=== PATIENT | female | born 1955 | race Caucasian/White ===

== ENCOUNTER 2020-01-05 12:40 | Outpatient (CLI) | payer MEDICARE, SELFPAY ==
--- NOTE | ~2020-01-05 | MM_ITS ---
EXAMINATION: MM screening [facility] BI w [facility]en HISTORY: Screening TECHNIQUE: Craniocaudal and mediolateral oblique 3-D tomosynthesis images were obtained and synthetic 2-D images were generated. CAD analysis was submitted and interpreted. COMPARISON: Comparison to multiple prior studies sequentially, with oldest reviewed study dated . BREAST PARENCHYMAL COMPOSITION: There are scattered areas of fibroglandular density. FINDINGS: Stable appearance to benign-appearing right subareolar mass, characterized as a cyst by lenard or ultrasound. There is no evidence of suspicious mass, calcification, or architectural distortion to suggest malignancy in either breast. There has been no suspicious interval change. IMPRESSION: 1. No mammographic evidence of malignancy. 2. Recommend routine screening mammography in one year. BI-RADS Category 2: Benign finding(s). Reviewed, dictated and finalized at location A.
== END 2020-01-05 12:41 | disposition home or self-care (01) ==
LOC: ANHIMG 12:45
PROVIDERS: PCP Family Medicine; Visit Provider Family Medicine
DX: Z12.31 Encounter for screening mammogram for malignant neoplasm of breast (principal)
CPT/HCPCS: 77063; 77067

== ENCOUNTER 2020-12-05 14:00 | Outpatient (CLI) | payer MEDICARE, SELFPAY ==
--- NOTE | ~2020-12-05 | DEXA_ITS ---
Bone Density Report Name: Phylicia Kamara Age: 64 Sex: Female Ethnicity: White Date of : 1955 Indication: postmenopausal; parental hip fracture; hysterectomy; Referring Provider: AMAN DUBOSE Study: Bone densitometry was performed. Exam Date: December 05, 2020 Accession number: [id number] Bone Density: Region BMD T-score Z-score Classification AP Spine (L1, L2) 0.996 0.2 1.9 Normal Femoral Neck (Left) 0.878 0.3 1.8 Normal Total Hip (Left) 1.002 0.5 1.8 Normal Total Hip Bilateral Avg 0.989 0.4 1.7 Normal Femoral Neck (Right) 0.886 0.3 1.9 Normal Total Hip (Right) 0.975 0.3 1.5 Normal World Health Organization criteria for BMD impression classify patients as: Normal (T-score at or above -1.0), Osteopenia (T-score between -1.0 and -2.5), or Osteoporosis (T-score at or below -2.5). 10-year Fracture Risk: FRAX not reported because: All T-scores for Spine Total, Hip Total, Femoral Neck at or above -1.0 Clinical Information Provided by Patient: Parent has had a hip fracture Has used the following medications: Vitamin D, Calcium Has the following medical conditions: Hysterectomy Patient maximum height was 63 Menopause Age: 44 No regular weight bearing exercise Does not regularly consume dairy products Onset of menses at age 13 Number of children 3 Impression: The patient has normal bone mass. The patient has risk factors, including: parental hip fracture. Discussion: BONE DENSITY IS ABOVE THE MINIMUM DESIRABLE LEVEL AT ALL SKELETAL SITES TESTED. This patient?s bone mineral density is above the minimum desirable level (T-score -1.0 or better) at all sites measured. The patient should follow a healthful lifestyle (good nutrition with adequate calcium and vitamin D, and appropriate weight-bearing exercise). Follow-Up: Consider repeating this study in 5 years or sooner if there is some new clinical indication. Reported by: [facility] on 12/05/2020 2:26:00 PM. Reviewed, dictated and finalized at location ARobyn GODOY
== END 2020-12-05 14:01 | disposition home or self-care (01) ==
LOC: ANHIMG 14:04
PROVIDERS: PCP Family Medicine; Visit Provider Family Medicine
DX: Z78.0 Asymptomatic menopausal state (principal)
CPT/HCPCS: 77080

== ENCOUNTER 2021-03-16 13:10 | Emergency (ER) | payer MEDICARE, SELFPAY ==
[2021-03-16] VITALS (34 sets, daily range): BP systolic 110–149; BP diastolic 58–96; PULSE 62–99; RESP 12–20; TEMP 36.4–36.5; O2SAT 90–100
--- NOTE | ~2021-03-16 | CT_ITS ---
EXAMINATION: CTA brain DATE: 03/16/2021 15:22 INDICATION: Vertigo. TECHNIQUE: Computed tomographic angiography (CTA) of the head was performed without and with 100 mL O mnipaque-350 intravenous contrast. Automated exposure control and iterative reconstruction technique were employed. The dose-length product was 1238.06 mGy-cm. Maximum intensity projection 3D reconstru ctions were created. Volume-rendered 3D reconstructions of the intracranial arteries were created by the technologist on a separate workstation. COMPARISON: None. FINDINGS: There is a small old infarct in right cerebellum. There is no intracranial hemorrhage, acut e infarction, or abnormal intracranial mass lesion. The ventricles are normal in size. There are like ly changes of ocular lens replacement surgeries. The paranasal sinuses are clear. The mastoid air hailey ls are normal. Right vertebral artery is dominant. There is no significant stenosis of basilar artery or the posterior cerebral arteries. The posterior communicating arteries are normal. There is no sig nificant stenosis of the intracranial internal carotid arteries or anterior or middle cerebral arteri es. Anterior communicating artery is normal. There is no aneurysm. IMPRESSION: 1. Small old infarct in right cerebellum. 2. No aneurysm or significant intracranial arterial stenosis. Reviewed, dictated and finalized at location A.
--- NOTE | 2021-03-16 13:25 | ECG_ITS ---
Measurements Intervals [place] Rate: 58 P: 4 KS: 184 QRS: -11 QRSD: 110 T: -7 QT: 458 QTc: 454 Interpretive Statements SINUS BRADYCARDIA INTRAVENTRICULAR CONDUCTION DELAY LOW QRS VOLTAGE IN PRECORDIAL LEADS EXTENSIVE ANTERIOR INFARCT, AGE INDETERMINATE BORDERLINE T WAVE ABNORMALITY- INFERIOR LEADS BASELINE ARTIFACT- I, II, AVR ABNORMAL ECG Electronically Signed On 03-16-2021 20:25:18 CDT by Christiano Leyva D.O.
[2021-03-16 13:56] LABS: Basophils Absolute Auto 0.1 K/mm3 (0.0-0.1); Basophils Percent Auto 0.6 % (0.2-1.2); Eosinophils Absolute Auto 0.2 K/mm3 (0-0.3); Eosinophils Percent Auto 1.6 % (0-4.4); Hematocrit 40.7 % (37.0-47.0); Hemoglobin 13.7 g/dL (12.0-15.0); Immature Granulocyte Absolute 0.08 K/mm3 (0.00-0.031); Immature Granulocyte Percent A 0.6 % (0-0.5); Lymphocytes Absolute Auto 2.81 K/mm3 (0.9-3.2); Lymphocytes Percent Auto 19.4 % (18.3-44.2); Mean Corpuscular HGB Conc 33.7 g/dl (32-36); Mean Corpuscular Hemoglobin 29.7 pg (26-34); Mean Corpuscular Volume 88.3 fl (80-100); Mean Platelet Volume 11.2 fl (7.4-10.4); Monocytes Percent Auto 6.6 % (2.6-8.5); Neutrophils Absolute Auto 10.3 K/mm3 (1.3-6.7); Neutrophils Percent Auto 71.2 % (45.5-73.1); Platelet Count Result 252 k/mm3 (150-375); Red Blood Count 4.61 M/mm3 (4.2-5.4); Red Cell Distribution Width 13.2 % (11.5-14.5); White Blood Count 14.5 K/mm3 (4.5-10.0)
[2021-03-16 14:07] LABS: Alanine Aminotransferase 36 U/L (4-35); Albumin Level 4.3 g/dL (3.5-5.1); Alkaline Phosphatase 76 U/L (38-126); Anion Gap 9 mmol/L (8-16); Aspartate Amino Transferase 44 U/L (14-36); Bilirubin,Total 1.4 mg/dL (0.2-1.3); Blood Urea Nitrogen 19 mg/dL (7-17); Carbon Dioxide 27 mmol/L (22-30); Chloride 105 mmol/L (98-107); Estimated CRCL calculation 67 ml/min; Estimated Glomerular Filt Rate > 60; Glucose 173 mg/dL (65-110); Potassium 3.5 mmol/L (3.4-5.0); Sodium 141 mmol/L (137-145)
--- NOTE | 2021-03-16 14:28 | ED.DIZZY ---
HPI - Dizziness General Chief Complaint: Dizziness Stated Complaint: Vomiting, Dizzy Time Seen by Provider: 03/16/21 14:09 Source: patient History of Present Illness HPI Narrative: Patient presents with dizziness and vomiting. Reports symptoms started just prior to arrival. Reports she feels weak all over feels dizzy gets nauseous anytime she moves her body. She reports a history of vertigo but today symptoms are more severe. She denies any focal areas of pain such as chest pain or abdominal pain. She denies any urinary symptoms prior to today she was feeling well she denies any fevers, cough, congestion, chest pain, abdominal pain. Related Data Home Medications Medication Instructions Recorded Confirmed aspirin 81 mg tablet,delayed 81 mg PO DAILY 06/18/19 12/12/19 release cetirizine 10 mg tablet 10 mg PO DAILY 06/18/19 12/12/19 Allergies Allergy/AdvReac Type Severity Reaction Status Date / Time codeine Allergy Severe throat Verified 09/04/20 12:23 tightness acetaminophen Allergy Mild unknown Verified 09/04/20 12:23 [From Lorcet (hydrocodone)] hydrocodone Allergy Mild unknown Verified 09/04/20 12:23 [From Lorcet (hydrocodone)] lisinopril Allergy Mild Unknown Verified 09/04/20 12:23 tramadol Allergy Mild Itching Verified 09/04/20 12:23 sulfamethizole Allergy Unknown Unknown Verified 09/04/20 12:23 sulfamethoxazole Allergy Unknown Unknown Verified 09/04/20 12:23 trimethoprim Allergy Unknown Unknown Verified 09/04/20 12:23 Review of Systems Review of Systems: CONSTITUTIONAL: Denies fever, chills, or sweats. EYES: Denies visual changes, redness, or discharge. ENT: Denies rhinorrhea, congestion, sore throat, or otalgia. CARDIOVASCULAR: Denies chest pain, palpitations, or edema. RESPIRATORY: Denies cough or dyspnea. GASTROINTESTINAL: Denies abdominal pain, nausea, vomiting, or diarrhea. GENITOURINARY: Denies dysuria or hematuria. SKIN: Denies rash or itching. MUSCULOSKELETAL: Denies back pain, joint pain, or myalgia. NEUROLOGIC: Dizziness and diffuse weakness PSYCHIATRIC: Denies anxiety or depression. All systems reviewed & are unremarkable except as noted in HPI and below PMFSH Past Medical History Medical History BMI (body mass index) 20.0-29.9 Essential hypertension Major depressive disorder, single episode, unspecified Mixed hyperlipidemia Osteopenia Family History Family History Other Diabetes mellitus Family history of Alzheimer's disease Family history of arthritis Hypertension Social History Social History Smoking status: Never smoker Second hand tobacco smoke exposure: No Alcohol intake: never Exam Narrative: GENERAL: Well-appearing, well-nourished, and in no acute distress. HEAD: Normocephalic, atraumatic. EYES: PERRLA and EOMI. ENT: Nares clear, no rhinorrhea or epistaxis. Mucous membranes moist. NECK: Supple. No masses. No JVD CHEST: Clear to auscultation. No respiratory distress. No wheezes rales or rhonchi HEART: Regular rate and rhythm. No murmur heard. Normal peripheral pulses. ABDOMEN: Soft, nontender, nondistended, normal active bowel sounds. EXTREMITIES: Normal range of motion. No edema. SKIN: Warm, dry, no rash. NEURO: Cranial nerves II through XII patient has 5 out of 5 strength in all extremities sensation intact to light touch in all extremities finger-nose is intact without dysmetria no dysdiadochokinesia. PSYCH: Normal mood and affect. Course Reevaluation(s) Reevaluation #1: Patient continues to feel unwell. Patient was accepted to [facility] by Dr. Connelly pending bed availability. I also discussed case with Dr. Levi neurology at [facility] who will assist in evaluation of the patient. Initial concern was for peripheral vertigo however patient was not responding to supportive ther
[2021-03-16] MEDS: SODIUM CHLORIDE 0.9% IV 1,000 ML 999 ML IV CONT (14:37)
[2021-03-16] MEDS: MECLIZINE HCL 25 MG TABLET PO (14:37)
[2021-03-16 14:52] LABS: Lactic Acid Reflex 2.5 mmol/L (0.7-2.1)
[2021-03-16 15:08] LABS: Add Urine Microscopic? NO; Appearance Urine Clear (Clear); Bilirubin Urine Negative (Negative); Blood Urine Negative (Negative); Color Urine Straw (Yellow); Glucose Urine UA Negative (Negative); Ketones Urine Negative (Negative); Leukocyte Esterase Ur Negative LEU/UL (Negative); Nitrate Urine Negative (Negative); Protein Urine Negative (Negative); Specific Grav Ur 1.012 (1.001-1.035); Urobilinogen Urine Negative mg/dL (<2.0)
[2021-03-16] MEDS: ONDANSETRON INJ 4 MG/2 ML VIAL IV PUSH (16:14)
[2021-03-16 17:41] LABS: Reflex Lactic Acid Yes or No Add Lactic
[2021-03-16] MEDS: ASPIRIN 81 MG CHEWABLE TABLET 324 MG PO (17:51)
[2021-03-16] MEDS: LORazepam INJ (*CRX) 2 MG/ML VIAL 0.5 MG IV PUSH (21:09)
--- NOTE | 2021-03-16 21:53 | PC.NURSE ---
Called [facility] for transport to [facility]....ETA [id number]
[2021-03-16 22:57] LABS: EDCOVIDSCREEN Negative (Negative)
[2021-03-17 18:52] LABS: SARS-CoV-2 RNA PCR Negative
== END 2021-03-16 22:56 | disposition short-term general hospital (02) ==
PROVIDERS: Emergency Medicine; Emergency Provider Emergency Medicine; PCP Family Medicine
DX: R42 Dizziness and giddiness (principal); R11.2 Nausea with vomiting, unspecified; I10 Essential (primary) hypertension; E78.2 Mixed hyperlipidemia; Z79.82 Long term (current) use of aspirin; Z20.822 Contact with and (suspected) exposure to COVID-19
CPT/HCPCS: 36415; 70496; 80053; 81003; 83605; 85025; 87426; 93005; 96361; 96374; 96375; 99285; A9270; C9803; J2060; J2405; J7030; Q9967; U0003; U0005

== ENCOUNTER → 2021-03-31 12:18 | Outpatient (CLI) | payer MEDICARE, SELFPAY ==
--- NOTE | ~2021-03-31 | XR_ITS ---
EXAMINATION: XR chest 2V DATE: 03/31/2021 12:36 INDICATION: Shortness of breath TECHNIQUE: PA and lateral views of the chest are obtained. COMPARISON: None available FINDINGS: The lungs are free of acute opacities. There is no pleural effusion or pneumothorax. The ca rdiomediastinal silhouette is normal. There is moderate thoracic spondylosis. A cardiac monitoring de vice is present in the midline anterior chest wall. Surgical clips in the right upper quadrant are clive shanks from prior cholecystectomy. IMPRESSION: 1. No acute cardiopulmonary abnormality. Reviewed, dictated and finalized at location B.
== END ==
PROVIDERS: PCP Family Medicine; Visit Provider Family Medicine
DX: R06.00 Dyspnea, unspecified (principal)
CPT/HCPCS: 71046

== ENCOUNTER 2022-02-17 08:45 | Outpatient (CLI) | payer MEDICARE, SELFPAY ==
--- NOTE | ~2022-02-17 | MM_ITS ---
EXAMINATION: MM screening [facility] BI w quinten HISTORY: Screening mammogram TECHNIQUE: Craniocaudal and mediolateral oblique 3-D tomosynthesis images were obtained and synthetic 2-D images were generated. CAD analysis was submitted and interpreted. COMPARISON: 01/05/2020, 11/07/2018, 10/26/2018 BREAST PARENCHYMAL COMPOSITION: There are scattered areas of fibroglandular density. FINDINGS: There is no suspicious mass, calcification, or architectural distortion to suggest malignan cy in either breast. There has been no suspicious interval change. IMPRESSION: 1. No mammographic evidence of malignancy. 2. Recommend routine screening mammography in one year. BI-RADS Category 1: Negative Reviewed, dictated and finalized at location A.
== END 2022-02-17 08:46 | disposition home or self-care (01) ==
PROVIDERS: PCP Family Medicine; Visit Provider Physician Assistant
DX: Z12.31 Encounter for screening mammogram for malignant neoplasm of breast (principal)
CPT/HCPCS: 77063; 77067

== ENCOUNTER 2022-05-07 00:24 | Day surgery (SDC) | payer MEDICARE, SELFPAY ==
[2022-04-28 15:24] VITALS: BMI 30.2
[2022-05-07 07:23] VITALS: BP 126/63; PULSE 113; RESP 18; TEMP 36.6; O2SAT 97
[2022-05-07] MEDS: LACTATED RINGERS 1,000 ML 150 ML IV CONT (07:44)
--- NOTE | 2022-05-07 07:53 | PM.HPGS ---
History of Present Illness History of Present Illness Consent: Risks, benefits, and alternatives have been discussed and questions answered. Patient agrees to proceed with procedure. Chief complaint: neoplasm screening Narrative: Phylicia Kamara is a 66 year old female Presents for screening colonoscopy. Patient reports that her current weight appetite and bowel movements are normal. Patient denies abdominal pain. She has had no bleeding. Family history noncontributory. Patient's last exam 10 years ago was unremarkable. Patient reports in the last several years she has had several small CVAs. Ultimately was found to have a hole in the heart . This was repaired via a heart catheterization. Patient presents today for screening colonoscopy. She reports she only takes aspirin and no longer is on blood thinners. Review of Systems Review of Systems: Review of systems noncontributory. [facility] Past Medical History Medical History (Updated 05/07/22 @ 07:55 by Benny Ortega MD) BMI (body mass index) 20.0-29.9 CVA (cerebral vascular accident) Essential hypertension Major depressive disorder, single episode, unspecified Mixed hyperlipidemia Osteopenia Prediabetes Surgical History Surgical History (Updated 03/16/22 @ 15:05 by Sisi Garcia MD) S/P patent foramen ovale closure Family History Family History Other Diabetes mellitus Family history of Alzheimer's disease Family history of arthritis Hypertension Social History Social History Smoking status: Never smoker Second hand tobacco smoke exposure: No Alcohol intake: never Substance use: never Substance use type: does not use Living arrangements: with family Gender identity (if verbalized by the patient): Female Sexual Orientation (if Verbalized by the Patient): Straight or Heterosexual Spiritual care concerns: No Agree to blood products: Yes Meds Home Medications and Allergies Home Medications Medication Instructions Recorded Confirmed Type calcium carbonate 500 mg calcium 500 mg PO DAILY 03/31/21 04/28/22 History (1,250 mg) tablet calcium polycarbophil 625 mg tablet 1,000 mg PO DAILY 03/31/21 04/28/22 History meclizine 25 mg tablet 25 mg PO TID PRN dizziness #60 tabs 05/29/21 04/28/22 Rx perindopril erbumine 4 mg tablet 4 mg PO DAILY #90 tabs 11/20/21 04/28/22 Rx trazodone 50 mg tablet 50 mg PO QHS PRN sleep #30 tabs 11/28/21 04/28/22 Rx aspirin 325 mg tablet 325 mg PO DAILY #90 tabs 03/16/22 04/28/22 Rx omega 0-lpm-bkt-fish oil 1,000 mg 1 cap PO DAILY 03/16/22 04/28/22 History (120 mg-180 mg) capsule (Fish Oil) potassium chloride 20 mEq 20 meq PO DAILY #90 tabs 03/16/22 04/28/22 Rx tablet,extended release atorvastatin 40 mg tablet (Lipitor) 40 mg PO DAILY #90 tabs 03/20/22 04/28/22 Rx venlafaxine 150 mg 150 mg PO DAILY #90 caps 03/20/22 04/28/22 Rx capsule,extended release 24 hr sodium,potassium,mag sulfates 17.5 See Rx Instructions PO .COMPLEX 04/02/22 Rx gram-3.13 gram-1.6 gram oral soln #354 mL (Suprep Bowel Prep Kit) Lactobacillus 1 cap PO DAILY 04/28/22 04/28/22 History acidophilus-Bifidobac.animalis 2.5 billion cell capsule (Daily Probiotic) polyethylene glycol 3350 17 17 g PO DAILY 04/28/22 04/28/22 History gram/dose oral powder (ClearLax) indapamide 2.5 mg tablet 2.5 mg PO DAILY #90 tabs 05/03/22 Rx Allergies Allergy/AdvReac Type Severity Reaction Status Date / Time codeine Allergy Severe throat Verified 05/07/22 07:23 tightness acetaminophen Allergy Mild unknown Verified 05/07/22 07:23 [From Lorcet (hydrocodone)] hydrocodone Allergy Mild unknown Verified 05/07/22 07:23 [From Lorcet (hydrocodone)] lisinopril Allergy Mild Unknown Verified 05/07/22 07:23 tramadol Allergy Mild Itching Verified 05/07/22 07:23 sulfamethizole Allergy Unknown Unknown
--- NOTE | 2022-05-07 08:43 | WPDANESEPPF ---
Anes - Initial Pre Proc Eval Procedure: Operation Date: 05/07/22 08:45 Proposed Procedures p Screening Colonoscopy - Benny Ortega MD Date/Time: 05/07/22 08:43 Surgeon: Benny Ortega MD Pre Op Diagnosis: neoplasm screening Patient Data Age: 66 Gender: F Height: 1.6 m Weight: 77.5 kg Last Vital Signs Temp 97.8 F 05/07/22 07:23 Pulse 113 H 05/07/22 07:23 Resp 18 05/07/22 07:23 BP 126/63 05/07/22 07:23 Pulse Ox 97 05/07/22 07:23 O2 Del Method Room Air 05/07/22 07:23 Allergies Allergy/AdvReac Type Severity Reaction Status Date / Time codeine Allergy Severe throat Verified 05/07/22 07:23 tightness acetaminophen Allergy Mild unknown Verified 05/07/22 07:23 [From Lorcet (hydrocodone)] hydrocodone Allergy Mild unknown Verified 05/07/22 07:23 [From Lorcet (hydrocodone)] lisinopril Allergy Mild Unknown Verified 05/07/22 07:23 tramadol Allergy Mild Itching Verified 05/07/22 07:23 sulfamethizole Allergy Unknown Unknown Verified 05/07/22 07:23 sulfamethoxazole Allergy Unknown Unknown Verified 05/07/22 07:23 trimethoprim Allergy Unknown Unknown Verified 05/07/22 07:23 Home Medications Medication Instructions Recorded Confirmed Type calcium carbonate 500 mg calcium 500 mg PO DAILY 03/31/21 04/28/22 History (1,250 mg) tablet calcium polycarbophil 625 mg tablet 1,000 mg PO DAILY 03/31/21 04/28/22 History meclizine 25 mg tablet 25 mg PO TID PRN dizziness #60 tabs 05/29/21 04/28/22 Rx perindopril erbumine 4 mg tablet 4 mg PO DAILY #90 tabs 11/20/21 04/28/22 Rx trazodone 50 mg tablet 50 mg PO QHS PRN sleep #30 tabs 11/28/21 04/28/22 Rx aspirin 325 mg tablet 325 mg PO DAILY #90 tabs 03/16/22 04/28/22 Rx omega 1-rei-xqn-fish oil 1,000 mg 1 cap PO DAILY 03/16/22 04/28/22 History (120 mg-180 mg) capsule (Fish Oil) potassium chloride 20 mEq 20 meq PO DAILY #90 tabs 03/16/22 04/28/22 Rx tablet,extended release atorvastatin 40 mg tablet (Lipitor) 40 mg PO DAILY #90 tabs 03/20/22 04/28/22 Rx venlafaxine 150 mg 150 mg PO DAILY #90 caps 03/20/22 04/28/22 Rx capsule,extended release 24 hr sodium,potassium,mag sulfates 17.5 See Rx Instructions PO .COMPLEX 04/02/22 Rx gram-3.13 gram-1.6 gram oral soln #354 mL (Suprep Bowel Prep Kit) Lactobacillus 1 cap PO DAILY 04/28/22 04/28/22 History acidophilus-Bifidobac.animalis 2.5 billion cell capsule (Daily Probiotic) polyethylene glycol 3350 17 17 g PO DAILY 04/28/22 04/28/22 History gram/dose oral powder (ClearLax) indapamide 2.5 mg tablet 2.5 mg PO DAILY #90 tabs 05/03/22 Rx Patient hx anesthesia problems: none Family hx anesthesia problems: none Results Review: All pre-operative results and documents have been reviewed as part of the pre-operative evaluation. [facility] Past Medical History Medical History (Updated 05/07/22 @ 07:55 by Benny Ortega MD) BMI (body mass index) 20.0-29.9 CVA (cerebral vascular accident) Essential hypertension Major depressive disorder, single episode, unspecified Mixed hyperlipidemia Osteopenia Prediabetes Surgical History Surgical History (Updated 03/16/22 @ 15:05 by Sisi Garcia MD) S/P patent foramen ovale closure Family History Family History Other Diabetes mellitus Family history of Alzheimer's disease Family history of arthritis Hypertension Social History Social History Smoking status: Never smoker Second hand tobacco smoke exposure: No Alcohol intake: never Substance use: never Substance use type: does not use Living arrangements: with family Gender identity (if verbalized by the patient): Female Sexual Orientation (if Verbalized by the Patient): Straight or Heterosexual Spiritual care concerns: No Agree to blood products: Yes Anes - Eval Final PreProcedure Day of Procedure 05/07/22 08:43 Patient weight:
[2022-05-07 09:15] VITALS: BP 109/66; PULSE 76; RESP 18; O2SAT 96
[2022-05-07 09:25] VITALS: BP 107/62; PULSE 71; RESP 12; O2SAT 98
[2022-05-07 09:35] VITALS: BP 119/75; PULSE 79; RESP 21; O2SAT 100
== END 2022-05-07 09:41 | disposition home or self-care (01) ==
PROVIDERS: PCP Family Medicine; Visit Provider Internal Medicine Gastroenterology
PROC: 0DJD8ZZ Inspection of Lower Intestinal Tract, Via Natural or Artificial Opening Endoscopic (ICD-10-PCS; CPT 45378; principal; 2022-05-07 08:45)
DX: Z12.11 Encounter for screening for malignant neoplasm of colon (principal); K57.30 Diverticulosis of large intestine without perforation or abscess without bleeding; K64.8 Other hemorrhoids; I10 Essential (primary) hypertension; E78.2 Mixed hyperlipidemia; M85.80 Other specified disorders of bone density and structure, unspecified site; R73.03 Prediabetes; F32.9 Major depressive disorder, single episode, unspecified; Z79.82 Long term (current) use of aspirin; Z86.73 Personal history of transient ischemic attack (TIA), and cerebral infarction without residual deficits
CPT/HCPCS: G0121; J2704; J7120

== ENCOUNTER 2022-05-19 11:04 | Outpatient (CLI) | payer MEDICARE, SELFPAY ==
--- NOTE | 2022-05-19 11:11 | ECG_ITS ---
Measurements Intervals [place] Rate: 75 P: 43 IN: 228 QRS: -29 QRSD: 107 T: 32 QT: 389 QTc: 436 Interpretive Statements SINUS RHYTHM WITH FIRST DEGREE AV BLOCK LOW QRS VOLTAGE IN PRECORDIAL LEADS [QRS DEFLECTION < 1.0 mV IN CHEST LEADS] SEPTAL MYOCARDIAL INFARCTION , PROBABLY OLD [40+ ms Q WAVE IN V1/V2] LEFTWARD AXIS ABNORMAL ECG COMPARED TO ECG 03/16/2021 13:25:12 SINUS RHYTHM NOW PRESENT FIRST DEGREE AV BLOCK NOW PRESENT Electronically Signed On 05-19-2022 15:34:41 [employer] [address] M.D.
== END 2022-05-19 11:05 | disposition home or self-care (01) ==
LOC: ANHCARD 11:07
PROVIDERS: PCP Family Medicine; Visit Provider Family Medicine
DX: I10 Essential (primary) hypertension (principal); I44.0 Atrioventricular block, first degree
CPT/HCPCS: 93005

== ENCOUNTER 2022-09-22 12:41 | Emergency (ER) | payer MEDICARE, SELFPAY ==
[2022-09-22 13:01] VITALS: BP 107/72; PULSE 83; RESP 18; TEMP 37.2; O2SAT 99
--- NOTE | 2022-09-22 13:07 | ED.SKABFB ---
HPI - Skin/Abscess/Foreign Bdy General Chief complaint: Skin/Abscess/Foreign Body Stated complaint: insect bite (lt hand) Time Seen by Provider: 09/22/22 13:07 Source: patient Mode of arrival: ambulatory Limitations: no limitations History of Present Illness HPI narrative: Patient is a 66-year-old female that presents with insect bite/sting to left palm by thumb. Patient states it happened 20 minutes prior to arrival. States the pain was immediate and intense with swelling and redness. Patient did not take anything but came straight here. Reports some tingling to fingers and pain to palm. Denies any change in range of motion of fingers. Denies any shortness of breath, tongue swelling or lip swelling Related Data Home Medications Medication Instructions Recorded Confirmed calcium carbonate 500 mg calcium 500 mg PO DAILY 03/31/21 09/22/22 (1,250 mg) tablet calcium polycarbophil 625 mg tablet 1,000 mg PO DAILY 03/31/21 09/22/22 omega 6-qvp-btf-fish oil 1,000 mg 1 cap PO DAILY 03/16/22 09/22/22 (120 mg-180 mg) capsule (Fish Oil) Lactobacillus 1 cap PO DAILY 04/28/22 09/22/22 acidophilus-Bifidobac.animalis 2.5 billion cell capsule (Daily Probiotic) polyethylene glycol 3350 17 17 g PO DAILY 04/28/22 09/22/22 gram/dose oral powder (ClearLax) Allergies Allergy/AdvReac Type Severity Reaction Status Date / Time codeine Allergy Severe throat Verified 09/22/22 13:03 tightness acetaminophen Allergy Mild unknown Verified 09/22/22 13:03 [From Lorcet (hydrocodone)] hydrocodone Allergy Mild unknown Verified 09/22/22 13:03 [From Lorcet (hydrocodone)] lisinopril Allergy Mild Unknown Verified 09/22/22 13:03 tramadol Allergy Mild Itching Verified 09/22/22 13:03 sulfamethizole Allergy Unknown Unknown Verified 09/22/22 13:03 sulfamethoxazole Allergy Unknown Unknown Verified 09/22/22 13:03 trimethoprim Allergy Unknown Unknown Verified 09/22/22 13:03 Review of Systems Review of Systems: All systems reviewed & are unremarkable except as noted in HPI and below Constitutional: Constitutional: Denies body ache(s), Denies chills, Denies fatigue, Denies fever(s), Denies headache(s), Denies malaise and Denies weakness Eyes: Eyes: Denies blurry vision, Denies irritation and Denies loss of vision ENT: Denies otalgia, Denies headache(s), Denies nasal discharge, Denies sinus pain and Denies sore throat Cardiovascular: Cardiovascular: Denies chest pain, Denies irregular heart rhythm and Denies dyspnea Respiratory: Respiratory: Denies dyspnea Gastrointestinal: Gastrointestinal: Denies abdominal pain, Denies melena, Denies hematochezia, Denies diarrhea, Denies nausea and Denies vomiting Musculoskeletal: Musculoskeletal: Denies back pain, Denies myalgias and Denies arthralgias Integumentary/Breasts: Skin/Breast: Denies pruritus, Denies rash and Reports other (Bug bite) Neurologic: Denies headache(s), Denies loss of vision and Denies weakness Psychiatric: Psychiatric: Reports no additional psychiatric complaints Endocrine: Endocrine: Denies fatigue [facility] Past Medical History Medical History (Updated 09/22/22 @ 13:22 by Elizabeth Hicks APRN) BMI (body mass index) 20.0-29.9 CVA (cerebral vascular accident) Essential hypertension Major depressive disorder, single episode, unspecified Mixed hyperlipidemia Osteopenia Prediabetes Surgical History Surgical History (Updated 03/16/22 @ 15:05 by Sisi Garcia MD) S/P patent foramen ovale closure Family History Family History Other Diabetes mellitus Family history of Alzheimer's disease Family history of arthritis Hypertension Social History Social History (Updated 09/15/22 @ 13:54 by Ethel Spivey [facility]) Smoking status: Never smoker Second hand tobacco smoke exposure: No Alcohol intake: never Substance use: never Substance use type: does not use Lack of Transportation: No Lack
== END 2022-09-22 13:24 | disposition home or self-care (01) ==
PROVIDERS: Emergency Provider Nurse Practitioner Family; PCP Family Medicine
DX: S60.562A Insect bite (nonvenomous) of left hand, initial encounter (principal); W57.XXXA Bitten or stung by nonvenomous insect and other nonvenomous arthropods, initial encounter; I10 Essential (primary) hypertension; E78.2 Mixed hyperlipidemia; M85.80 Other specified disorders of bone density and structure, unspecified site; R73.03 Prediabetes; Z86.73 Personal history of transient ischemic attack (TIA), and cerebral infarction without residual deficits
CPT/HCPCS: 99211; G0463

== ENCOUNTER → 2023-03-31 13:03 | Outpatient (CLI) | payer MEDICARE, SELFPAY ==
--- NOTE | ~2023-03-31 | XR_ITS ---
EXAM: XR foot RT min 3V DATE: 03/31/2023 13:23 HISTORY: M79.671 - Pain in right foot . COMPARISON: 04/15/2011. FINDINGS: Normal mineralization. No fracture or dislocation. Small avulsion fracture anterior to the talus seen in the prior study is not visualized in today's study. Stable sclerotic line in the cuboi d. No lytic or blastic lesion. Prominent os navicularis. Mild degenerative change at the first MTP rajwinder int. No erosion or periosteal change. Soft tissues within normal limits. IMPRESSION: Mild degenerative change at the first MTP joint. Prominent os navicularis, which can be a source of chronic medial ankle pain in some patients. Reviewed, dictated and finalized at location K. IMPRESSION: Mild degenerative change at the first MTP joint. Prominent os navic ularis, which can be a source of chronic medial ankle pain in some patients.
== END ==
PROVIDERS: PCP Family Medicine; Visit Provider Family Medicine
DX: M19.071 Primary osteoarthritis, right ankle and foot (principal)
CPT/HCPCS: 73630

== ENCOUNTER 2023-07-02 09:37 | Outpatient (CLI) | payer MEDICARE, SELFPAY ==
--- NOTE | ~2023-07-02 | MM_ITS ---
EXAMINATION: MM screening [facility] BI w [facility]en HISTORY: Screening TECHNIQUE: Craniocaudal and mediolateral oblique 3-D tomosynthesis images were obtained and synthetic 2-D images were generated. CAD analysis was submitted and interpreted. COMPARISON: Comparison to multiple prior studies sequentially, with oldest reviewed study dated 08/20. BREAST PARENCHYMAL COMPOSITION: Not dense: There are scattered areas of fibroglandular density. FINDINGS: There is no evidence of suspicious mass, calcification, or architectural distortion to sugg est malignancy in either breast. There has been no suspicious interval change. IMPRESSION: 1. No mammographic evidence of malignancy. 2. Recommend routine screening mammography in one year. BI-RADS Category 1: Negative Reviewed, dictated and finalized at location A. CLERK
== END 2023-07-02 09:38 | disposition home or self-care (01) ==
LOC: ANHIMG 09:41
PROVIDERS: PCP Family Medicine; Visit Provider Family Medicine
DX: Z12.31 Encounter for screening mammogram for malignant neoplasm of breast (principal)
CPT/HCPCS: 77063; 77067

== ENCOUNTER 2024-02-03 06:39 | Outpatient (CLI) | payer MEDICARE, SELFPAY ==
--- NOTE | ~2024-02-03 | CT_ITS ---
CT of the Abdomen and Pelvis: Indication: Other specified diseases pancreas Technique: 2.5 mm axial scans were obtained through the abdomen and pelvis prior to and following in travenous administration of 100 cc of Omnipaque 350. Dose reduction technique was used on this scan b y utilizing automated exposure control and iterative reconstruction technique. The dose-length produc t (DLP) was 778.40 mGy-cm. Findings: Scans through the lung bases demonstrate 4 mm right basilar pulmonary nodule (axial image 27).. The liver, spleen, adrenals and kidneys are within normal limits. Cholecystectomy clips are present. There is a 2.8 x 2.1 cm cystic, nonenhancing somewhat lobulated mass the pancreatic head/uncinate pro cess (series 7 image 71 for example). No pancreatic ductal dilatation. Lesions possibly in continuity with the main pancreatic duct. There are atherosclerotic calcifications of the aorta. No lymphadeno stanley. No bowel obstruction or bowel wall thickening. There is no evidence to suggest acute appendicitis. Images through the pelvis were performed. Urinary bladder unremarkable. No pelvic mass seen. No ascit es. Impression: 2.8 x 2.1 cm cystic mass at the pancreatic head/uncinate process. Possible continuity with the main p ancreatic duct, which would be indicative of IPMN. Other considerations could include small serous or possibly mucinous cystadenoma. Consider MR/MRCP to further evaluate for continuity with the main whitfield creatic duct, as indicated. Reviewed, dictated and finalized at [facility]. Impression: 2.8 x 2.1 cm cystic mass at the pancreatic head/uncinate process. Possible cont inuity with the main pancreatic duct, which would be indicative of IPMN. Other considerations could include small serous or possibly mucinous cystadenoma. 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
[2024-02-03 07:05] LABS: Estimated Glomerular Filt Rate > 60
== END 2024-02-03 06:40 | disposition home or self-care (01) ==
LOC: ANHIMG 06:40
PROVIDERS: PCP Family Medicine; Visit Provider Family Medicine
DX: K86.89 Other specified diseases of pancreas (principal)
CPT/HCPCS: 74178; Q9967

== ENCOUNTER 2024-09-13 13:36 | Outpatient (CLI) | payer MEDICARE, SELFPAY ==
--- NOTE | ~2024-09-13 | MM_ITS ---
EXAMINATION: MM screening martha BI w quinten HISTORY: Screening TECHNIQUE: Craniocaudal and mediolateral oblique 3-D tomosynthesis images were obtained and synthetic 2-D images were generated. CAD analysis was submitted and interpreted. COMPARISON: Comparison to multiple prior studies sequentially, with oldest reviewed study dated 07/2017. BREAST PARENCHYMAL COMPOSITION: Not dense: There are scattered areas of fibroglandular density. FINDINGS: There is a mass in the upper outer quadrant of the right breast, middle third. The left baylee ast is stable without evidence for malignancy. IMPRESSION: 1. Right breast mass, upper outer quadrant, middle third. 2. Additional mammographic views and possible breast ultrasound are recommended. BI-RADS Category 0: Incomplete: Needs additional imaging evaluation. Reviewed, dictated and finalized at location B. IMPRESSION: 1. Right breast mass, upper outer quadrant, middle third. 2. Additional mammographic views and possible breast ultrasound are recommended . BI-RADS Category 0: Incomplete: Needs additional imaging evaluation.
--- OUTSIDE RECORDS SUMMARY | 2024-09-13 14:45 | XMS_ITS | Clinical Summary ---
Author Organization [facility] Address [address] [place] [address] Care Team Providers Care Plastics Process Hand Name Role Phone Sisi Garcia MD Primary Care Provider [phone] Deshawn Woodward MD Unavailable [phone] Source Comments [facility],non-owned Affiliates and Associated Physician Practices is amultiple site organization consisting of ambulatory clinics and hospital sitesin [place], [place], [place] and [place]. This disclosure is being madepursuant to the Care Everywhere program and may not contain all information available regarding this patient. Last updated 18.[facility] Allergies Active Allergy Reactions Criticality Noted Date Comments Codeine Anaphylaxis High 04/24/2015 Hydrocodone-Acetaminophen Nausea and/or Vomiting High 04/24/2015 Lisinopril Unknown 12/05/2019 Sulfamethoxazole W-Trimethoprim Unknown 12/05/2019 Tramadol Itching Low 12/05/2019 Medications * Be aware that medications may not be up to date on this document. Alwaysverify current medications with the patient. venlafaxine XR 24hr (EFFEXOR XR) 150 MG capsule Take 150 mg by mouth once daily 0 Active amLODIPine (NORVASC) 5 MG tablet Take 5 mg by mouth once daily Active calcium 600 MG tablet Take 1 tablet by mouth 2 times daily with morning and evening meal Active Calcium Polycarbophil (FIBER-CAPS PO) Take by mouth 3 times daily before meals Active atorvastatin (LIPITOR) 40 MG tablet Take 40 mg by mouth at bedtime Active meclizine (ANTIVERT) 25 MG tablet Take 25 mg by mouth 3 times daily as needed for Dizziness Active calcium carbonate (OS-OCTAVIA 500) 1250 (500 Ca) MG tablet A ctive citalopram (CELEXA) 20 MG tablet Take 20 mg by mouth once daily 9 Active ipratropium (ATROVENT) 0.03 % nasal spray [place] 1 spray into the nose 2 times daily as needed 0 Active potassium chloride ER (MICRO-K) 10 MEQ capsule TAKE 1 CAPSULE BY MOUTH TWICE A WEEK 0 Active ketorolac (ACULAR) 0.5 % ophthalmic solution 1 Active ofloxacin (OCUFLOX) 0.3 % ophthalmic solution 1 Active prednisoLONE acetate (PRED FORTE) 1 % ophthalmic suspension 1 Active meloxicam (MOBIC) 15 MG tablet Take 1 (one) tablet by mouth once daily 30 tablet 5 1 Active apixaban (ELIQUIS) 5 MG tablet Take 5 mg by mouth 2 times daily 1 Active bisoprolol (ZEBETA) 5 MG tablet 2 Active clopidogrel (PLAVIX) 75 MG tablet 2 Active indapamide (LOZOL) 2.5 MG tablet Take 2.5 mg by mouth once daily 1 Active perindopril (ACEON) 4 MG tablet Take 4 mg by mouth once daily 1 Active traZODone (DESYREL) 50 MG tablet 2 Active Active Problems Problem Noted Date Diagnosed Date History of CVA (cerebrovascular accident) 2020 Primary hypertension 03/17/2021 Pes anserinus bursitis of right knee 01/03/2021 Presence of right artificial knee joint 10/30/19 21 It band syndrome, right 10/29/2020 Status post right knee replacement 03/15/2020 BPPV (benign paroxysmal positional vertigo), rig ht 01/17/2020 Transient ischemic attack (TIA) 01/17/2020 Primary osteoarthritis of right knee 12/04/2019 Presence of left artificial knee joint 9 Other fatigue 04/24/2015 Social History Tobacco Use Types Packs/Day Years Used Date Smoking Tobacco: Never Smokeless Tobacco: Never Alcohol Use Standard Drinks/Week Comments No 0 (1 standard drink = 0.6 oz pur e alcohol) Comments Unknown Sex and Gender Information Value Date Recorded Sex Assigned at Not on file Legal Sex Female 6:08 PM [employer] Gender Identity Not on file Sexual Orientation Not on file Last Filed Vital Signs Vital Sign Reading Time Taken Comments Blood Pressure 128/54 02/23/2020 7:54 AM CDT Pulse 60 02/23/2020 7:54 AM CDT Temperature 36.9 C (98.4 F) 02/23/2020 7:54 AM CDT Respiratory Rate 18 02/23/2020 7:54 AM CDT Oxygen Saturation 90% 02/23/2020 7:54 AM CDT Inhaled Oxygen Concentration - - Weight 77.1 kg (170 lb) 02/22/2020 6:18 AM CDT Height 160 cm (5' 3 ) 02/22/2020 6:18 AM CDT Body Mass Index 30.11 02/22/2020 6:18 AM CDT Plan of Treatment Health Maintenance Due Date Last Done Comments BONE DENSITY TESTING 1955 COLOGUARD (AGES 45-75) - COL ON CA SCREENING 1954 COLON MONITORING 1955 COLONOSCOPY - COLON CA SCREENING 1954 CT COLONOGRAPHY - COLON CA SCREENING 1955 Colorectal Cancer Screening 1955 FIT - COLON CA SCREENING 1954 FLEX SIG - COLON CA SCREENING 1955 MAMMOGRAM 1955 MEDICARE AWV 12 MONTHS 1955 HEPATITIS C SCREENING 12/21/1972 DTAP/TDAP/TD VACCINES (1 - Tdap) 1973 PNEUMOCOCCAL VACCINE 50+ (1 of 1 - PCV) 2004 ZOSTER VACCINE (1 of 2) 2004 Respiratory Syncytial Virus (RSV) Vaccine Pt: or over 60 yrs (1 - Risk 60-74 years 1-dose series) 2014 COVID-19 VACCINE (1 - 2023-2 5 season) 2024 DEPRESSION SCREENING 05/31/2024 INFLUENZA VACCINE (Season Ended) 2025 01/13/2017, 04/19/2015 HEPATITIS B VACCINE Aged Out No longe r eligible based on patient's age to complete this topic HIB VACCINE Aged Out No longer eligi ble based on patient's age to complete this topic HPV VACCINE Aged Out No longer eligi ble based on patient's age to complete this topic MENINGOCOCCAL (Group B) VACCINE SHARED DECISION-MAKING Aged Out No longer eligible based on patient's age to complete this topic MENINGOCOCCAL GROUPS A/C/Y/W VACCINE Aged Out No longer eligible b ased on patient's age to complete this topic Medical Devices Implanted Type Area Freight Breaker Device Identifier Shelf Expiration Date Model / Serial / Lot Cmnt Bone Djo Srg Cblt 40gm Hvisc Strl Implanted:Qty: 1 on 02/22/2020 by Deshawn Woodward MD at [facility] Right: Knee [employer] 01/09/2021 [id number] / / [id number] Cmpnt Ptlr 28mm 1 Pg Wire Ascnt Arcm Kn Implanted:Qty: 1 on 02/22/2020 by Deshawn Woodward MD at [facility] Right: Knee [employer] 01/11/2025 [id number] / / [id number] Cmpnt Fem Kn Rt Cr Cmnt Prm Vngrd Intlk Implanted:Qty: 1 on 02/22/2020 by Deshawn Woodward MD at [facility] Right: Knee [employer] 12/01/2029 [id number] / / [id number] Tray Tib 67mm Kn Cocr I Beam Implanted:Qty: 1 on 02/22/2020 by Deshawn Woodward MD at [facility] Right: Knee [employer] 12/11/2029 [id number] / / [id number] Brng [id number] Vngrd Arcm Kn Ant Stab Implanted:Qty: 1 on 02/22/2020 by Deshawn Woodward MD at [facility] Right: Knee [employer] 12/21/2024 [id number] / / [id number] [place] [phone] Advance Directives * Full Code (Latest Code Status on File) Date Activated Date Inactivated Comments 02/22/2020 10:11 AM 02/23/2020 12:36 PM Care Teams Plastics Process Hand Relationship Specialty Start Date End Date Sisi Garcia MD [address] [place] [address] PCP - General 04/24/15 [place] [id number] [address] Surgeon Orthopedic Surgery 12/31/20
--- OUTSIDE RECORDS SUMMARY | 2024-09-13 14:46 | XMS_ITS ---
Author Organization 1 OF Rachel r[facility] Address [address] [facility] [address] [place] [address] Care Team Providers Care Technical Professional Name Role Phone Sisi Garcia M.D. Primary Care Provider UnavailFrances Root Unavailable [phone] Allergies Allergen (clinical drug ingredient) Drug/Non Drug Allergy documented on EMR Reaction Allergy Type Onset Date Status Lisinopril Unknown Drug Allergy Active tramadol traMADol HCl Unknown Drug Allergy Acti ve codeine Codeine Unknown Drug Allergy Active Substance with sulfonamide structure and antibacterial mechanism of action (substance) Sulfa Antibiotics Unknown Drug Allergy Active REASON FOR VISIT RT 2nd toe pain Medications Medication SIG (Take, Route, Fr equency, Duration) Notes Start Date End Date Status Calcium 1200 Active Potassium Active Aspirin Active Meloxicam 7.5 MG 1 tablet Orally once a day for 30 days 04/26/2023 Active Atorvastatin Calcium Active Magnesium Active Indapamide Active Venlafaxine HCl Acti ve Perindopril Erbumine Active traZODone HCl Active Probiotic Active Vital Signs Height 62 in 06/17/2023 Weight 150 lbs 06/17/2023 BMI 27.43 kg/m2 06/17/2023 Encounters Encounter Location Date Provider Diagnosis 1 OF Rachel Garza [facility] [address] [place] [address] 06/17/2023 Frances Corona Capsulitis of toe, right M77.51 and Toe pain, right M79.674 Assessments Encounter Date Diagnosis (ICD Code) Assessment Notes Treatment Notes Treatment Clinical Notes Section Notes 06/17/2023 Capsulitis of toe, right (ICD-10 - M77.51) Evaluation today included a review of medical history, review of systems, discussion of exam findings, and review of diagnoses and treatment options. She was advised to continue to try to rest the foot as much as possible. She can apply ice as needed. She was advised that she can discontinue the meloxicam if it is not helping much. I discussed continued use of a gel metatarsal pad, which she purchased again today. I discussed offloading of the forefoot with prefabricated orthotics with a gel metatarsal pad or with a surgical shoe. She would like to continue with just the pad and will try to wear good supportive sneakers. A toe taping was applied to the right second toe today. She was advised that she can continue to do this if it feels comfortable. I also discussed the potential of getting further imaging of the foot in the future if she continues to have no improvement with her symptoms. 06/17/2023 Toe pain, right (ICD-10 - M79.674) Plan Of Treatment Treatment Notes Assessment Notes Capsulitis of toe, right Evaluation toda y included a review of medical history, review of systems, discussion of exam findings, and review of diagnoses and treatment options. She was advised to continue to try to rest the foot as much as possible. She can apply ice as needed. She was advised that she can discontinue the meloxicam if it is not helping much. I discussed continued use of a gel metatarsal pad, which she purchased again today. I discussed offloading of the forefoot with prefabricated orthotics with a gel metatarsal pad or with a surgical shoe. She would like to continue with just the pad and will try to wear good supportive sneakers. A toe taping was applied to the right second toe today. She was advised that she can continue to do this if it feels comfortable. I also discussed the potential of getting further imaging of the foot in the future if she continues to have no improvement with her symptoms. Next Appt Details Follow Up: 4 Weeks,prn, Reas on: Procedure Notes * Category Sub-Category Detail Notes DME: Retail DME recommended: Ball of foot gel cushion, (patient purchased) [facility]. PROCEDURES: Toe taping / splinting: Toe st rapping performed to the right second toe utilizing elastic steri-strips. Patient advised to remove strapping if any discomfort develops or evidence of skin irrition, redness or increased swelling. Advised bandage will likely become loose if it gets wet. Otherwise may leave on for up to a week as long as it seems to be beneficial. Progress Notes * Phylicia KAMARA ADOB: [birth year] (67 yo F)Acc No.[id number]:06/17/2023 Progress Notes Patient: Phylicia ANGLIN Provider: Gabi Corona DPM :1955 A ge:67 Y S ex:Female Date:06/17/2023 Address:[facility] JOSE MICHAEL, CHRISTIAN Dominguez [id number] Pcp:Sisi Garcia M.D. Subjective: * Chief Complaints: * R T 2nd toe pain * HPI: Jacob Thompson assisting with visit:: HPI/Rooming: Tommy wright. Agustin galloway reason for visit:: Follow-up: [age] y/o female RTO for f/u of Rt toe pain. At last visit, treatment consisted of an Rx for Meloxciam. Pt advised to RICE, use gel metatarsal pad and wear good supportive shoes. Today pt reports she is still having pain in her second toe on the bottom. She feels numbness on the top of the toe. She feels the swelling has gone down also. Pt states her gel metatarsal pad helps a lot. She has been taking the meloxicam but is not sure if it is helping.. * ROS: * MULTI-SYSTEM REVIEW:: Nausea, fever or chillls d enies. A ny change in medications since last visit? d enies. A ny changes in medical history/hospitalizations? d enies. * Medical History: * Surgical History: N o Surgical History documented. * Hospitalization/Major Diagno stic Procedure: N o Hospitalization History. * Medications: T akingProbiotic traZODone HCl Perindopril Erbumine Venlafaxine HCl Indapamide Magnesium Aspirin Potassium Calcium 1200 Atorvastatin Calcium Meloxicam 7.5 MG Tablet 1 tablet Orally once a day Medication List reviewed and reconciled with the patientTaking Probiotic Taking traZODone HCl Taking Perindopril Erbumine Taking Venlafaxine HCl Taking Indapamide Taking Magnesium Taking Aspirin Taking Potassium Taking Calcium 1200 Taking Atorvastatin Calcium Taking Meloxicam 7.5 MG Tablet 1 tablet Orally once a day Medication List reviewed and reconciled with the patient * Allergies: S ulfa AntibioticstraMADol HClLisinoprilCodeineno[Allergies Verified] Objective: * Vitals: W t:150lbs, Wt-k.04 kg, Ht: 62 in, BMI:27.43Index. * Examination: G eneral Examination: Constitutional / Appearance: N o acute distress , Well nourished, Appropriate personal hygiene. Mental status: C ooperative, Oriented to person, place and time, Mood and affect: normal, Judgement and intellect: normal with appropriate response to questions. L ower Extremity VASCULAR: : Pulses: D P and PT pulses, palpable, bilateral. Temperature gradient: w arm from proximal to distal, bilateral. Pedal hair: p resent, bilateral. Capillary refill at distal toes less than 3 seconds, bilateral. L ower Extremity DERM: : Skin: w ell hydrated , no suspicious lesions, without ecchymosis, b ilateral. L ower Extremity MSK: : Gait Gait unremarkable with normal posture, propulsion and balance. Left lower extremity inspection and palpation: N o palpable masses or nodules noted.. Right lower extremity inspection and palpation: N o palpable masses or nodules noted. No significant pain with palpation along the dorsal aspect of the second toe. No pain with palpation along the dorsal aspect of the second metatarsal. No acute pain with palpation along the first and second interspaces. Some discomfort with palpation along the plantar aspect of the second MPJ. Some discomfort with end range dorsiflexion of the toe. Patient states numbness to the dorsal aspect of the second toe.. L ower Extremity NEURO: : General sensation appears intact, bilateral. Muscle tone within normal limits, bilateral. ? Assessment: * Assessment: 1. C apsulitis of toe, right - M77.51 (Primary) 2 . T oe pain, right - M79.674 Plan: * Treatment: * Procedures: D ME:: Retail DME recommended: B all of foot gel cushion, (patient purchased). [facility]. PROCEDURES:: Toe taping / splinting: T oe strapping performed to the right second toe utilizing elastic steri-strips. P atient advised to remove strapping if any discomfort develops or evidence of skin irrition, redness or increased swelling. Advised bandage will likely become loose if it gets wet. Otherwise may leave on for up to a week as long as it seems to be beneficial. . * Procedure Codes: 2 9550 STRAPPING OF TOES, Modifiers: T6 * Preventive Medicine: Counseling: C are goal follow-up plan: Above Normal BMI Follow-up L ifestyle education regarding diet Screenings: F ALL RISK SCREENING Fall Risk Assessment: N o falls in the past year * Follow Up: 4 Weeks,prn * Images: * EURIZER HELPER Sign off status: Completed true * Provider: Gabi Corona DPM Date: 0 06/17/2023 Generated for Loly Alvarez/Russel on: 0 09/13/2024 02:45 PM CDT History and Physical Notes * HPI (History of Present Illness) Category Sub-Category Detail Notes Category Not es Primary reason for visit: Follow-up: 67 y/o female RTO for f/u of Rt toe pain. At last visit, treatment consisted of an Rx for Meloxciam. Pt advised to RICE, use gel metatarsal pad and wear good supportive shoes. Today pt reports she is still having pain in her second toe on the bottom. She feels numbness on the top of the toe. She feels the swelling has gone down also. Pt states her gel metatarsal pad helps a lot. She has been taking the meloxicam but is not sure if it is helping. MA assisting with visit: HPI/Rooming: Andre Examination Category Sub-Category Detail Notes Category Not es General Examination Mental status: Cooperative, Oriented to person, place and time, Mood and affect: normal, Judgement and intellect: normal with appropriate response to questions Constitutional / Appearance: No acute di stress , Well nourished, Appropriate personal hygiene Lower Extremity VASCULAR: Pulses: DP and PT pulse s, palpable, bilateral Temperature gradient: warm from proximal to distal, bilateral Pedal hair: present, bilateral Capillary refill at distal toes less lizabeth n 3 seconds, bilateral Lower Extremity NEURO: General sensation appears intac t, bilateral Muscle tone within normal limits , bilateral Lower Extremity MSK: Left lower extremit y inspection and palpation: No palpable masses or nodules noted. Right lower extremity inspec tion and palpation: No palpable masses or nodules noted. No significant pain with palpation along the dorsal aspect of the second toe. No pain with palpation along the dorsal aspect of the second metatarsal. No acute pain with palpation along the first and second interspaces. Some discomfort with palpation along the plantar aspect of the second MPJ. Some discomfort with end range dorsiflexion of the toe. Patient states numbness to the dorsal aspect of the second toe. Gait Gait unremarkable wi th normal posture, propulsion and balance Lower Extremity DERM: Skin: well hydra patricia , no suspicious lesions, without ecchymosis, bilateral
--- OUTSIDE RECORDS SUMMARY | 2024-09-13 14:46 | XMS_ITS | Clinical Summary ---
Author Organization [facility] Address [address] [place] [id number] Care Team Providers Care Bill Poster Installer Name Role Phone Sisi Garcia MD Primary Care Provider [phone] Todd Angeles MD Unavailable Allergies Active Allergy Reactions Criticality Noted Date Comments Codeine Anaphylaxis High 10/11/2018 Anaphylaxis Codeine Sulfate Unknown 10/05/2018 Hydrocodone Stomach upset Low 10/20/2018 Stomach/GI Upset Hydrocodone-Acetaminoph en Nausea And Vomiting High 04/24/2015 Lisinopril Unknown,Rash Medium 10/20/2018 Rash Sulfamethoxazole-Trimet hoprim Unknown 09/20/2018 Tramadol Itching Low 10/20/2018 Itching Medications venlafaxine XR (EFFEXOR-XR) 150 mg 24 hr capsule Take 1 capsule (150 mg total) by mouth daily 12/22/2019 Active calcium carbonate (OS-OCTAVIA) 1,250 MG (500 mg of elemental calcium) tablet Take 2 tablets (2,500 mg total) by mouth nightly Active perindopril (ACEON) 4 mg tablet Take 0.5 tablets (2 mg total) by mouth daily 03/21/2021 Active atorvastatin (LIPITOR) 40 mg tablet Take 1 tablet (40 mg total) by mouth nightly Active B.ani/L.aci/L.s al/L.plan/L.Nayan (PROBIOTIC FORMULA ORAL) Take 1 capsule by mouth nightly Active traZODone (DESYREL) 50 mg tablet Take 1 tablet (50 mg total) by mouth nightly Active aspirin 81 mg enteric coated tablet Take 1 tablet (81 mg total) by mouth daily 30 tablet 11 05/18/2021 Active trospium (SANCTURA) 20 mg tablet 08/30/2023 Active potassium chloride ER 20 mEq CR tablet 08/03/2023 Activ e venlafaxine XR (EFFEXOR-XR) 75 mg 24 hr capsule 06/07/2023 Active indapamide (LOZOL) 2.5 mg tablet Take 1 tablet (2.5 mg total) by mouth daily 12/03/2023 Active meclizine (ANTIVERT) 25 mg tablet Take 1 tablet (25 mg total) by mouth 3 (three) times a day as needed 01/24/2024 Active Active Problems Problem Noted Date Diagnosed Date Pancreatic mass 02/11/2024 Assessment & Plan (02/11/2024 9:21 AM CDT): Had a CT scan that showed an incidental 2.8 by 2.1 cm cystic mass at the pancreatic head/uncinate process, possible continuity with the main pancreatic duct which would indicate IPMN, other considerations include serous or possibly mucinous cystadenoma. -we will refer for EUS of pancreatic mass, pending results may need referral to surgery Screening for colon cancer 02/11/2024 Assessment & Plan (02/11/2024 9:22 AM CDT): Last colonoscopy several years ago per patient was normal. -will obtain prior colonoscopy records from PCP, repeat colonoscopy pending review of records Interatrial septal aneurysm with PFO 05/16/2021 Acute CVA (cerebrovascular accident) 03/23/2021 PFO (patent foramen ovale) 03/19/2021 Suspected cerebrovascular accident (CVA) 021 Primary hypertension 03/17/2021 Other hyperlipidemia 03/17/2021 History of CVA (cerebrovascular accident) 2020 BPPV (benign paroxysmal positional vertigo), rig ht 01/17/2020 Transient ischemic attack (TIA) 01/17/2020 OA right knee-mild/moderate 02/09/2019 Presence of left artificial knee joint 9 Dyslipidemia Hypokalemia Cerebrovascular accident (CVA) Encounters Date Type Department Care Team Description 09/05/[address] [facility] Cardiology [address] [place] [address] Asif Olmos MD Surgical Clearance from Last 3 Months Immunizations Immunization Administration Dates Next Due Influenza, Trivalent, Preser vative Free, Intramuscular 01/13/2017,01/13/2017,04/19/2015,04/19 ZOSTER Recombinant 12/01/2019, 0,08/07/2019,08/06 Surgical History Surgery Date Site/Laterality Comments OVARIAN CYST REMOVAL 05/31/1971 - 05/30/1972 CARDIAC CATHETERIZATION 05/31/2014 - 05/30/2015 CHOLECYSTECTOMY 05/31/1979 - 05/30/1980 HYSTERECTOMY 05/31/2001 - 05/30/2002 CYST REMOVAL 10/11/2018 vaginal cyst excision JOINT REPLACEMENT 04/30/2017 - 05/30/2017 Left total knee. right tkr 01/2020 COLONOSCOPY UNSURE WHEN Medical History Medical History Date Comments Hypertension Hypercholesteremia Depression Viral myocarditis Ovarian cyst Aortic regurgitation mild Osteoarthritis of right knee PONV (postoperative nausea and vomiting) PFO (patent foramen ovale) Viral carditis 2014 Kidney stone patient not awar e of any kidney stone dx Anxiety Stroke (HCC) 02/2021 no resid ual TIA?CVA NOTED Vertigo Family History Medical History Relation Name Comments Alzheimer's disease Father Hyperlipidemia Other Relation Name Status Comments Father Other Social History Tobacco Use Types Packs/Day Years Used Date Smoking Tobacco: Never Smokeless Tobacco: Never Tobacco Cessation:Counseling Given: Not Answered Alcohol Use Standard Drinks/Week Comments Never 0 (1 standard drink = 0.6 oz pur e alcohol) AUDIT-C Answer Date Recorded Q1: How often do you have a drink containing alc ohol? Never 05/14/2021 Average Number of Drinks Not on file 021 Frequency of Binge Drinking Not on file 04/30 Personal Safety Answer Date Recorded Have you ever been in or are you currently in a harmful physical or emotional relationship or is someone making you feel afraid or unsafe? Denies 02/22/2024 Comments No Sex and Gender Information Value Date Recorded Sex Assigned at Not on file Legal Sex Female 1:09 AM LEGAL COUNSEL Gender Identity Not on file Sexual Orientation Not on file Occupation Industry Job Start Date Job End Date [email or web address] Not on file Not on file Not on file Obstetrics History Last Filed Vital Signs Vital Sign Reading Time Taken Comments Blood Pressure 117/74 02/22/2024 9:55 AM CDT Pulse 71 02/22/2024 9:55 AM CDT Temperature 36.5 C (97.7 F) 02/22/2024 9:35 AM CDT Respiratory Rate 17 02/22/2024 9:55 AM CDT Oxygen Saturation 98% 02/22/2024 9:55 AM CDT Inhaled Oxygen Concentration - - Weight 68 kg (150 lb) 02/22/2024 8:05 AM CDT Height 160 cm (5' 3 ) 02/22/2024 8:05 AM CDT Body Mass Index 26.57 02/22/2024 8:05 AM CDT Plan of Treatment Health Maintenance Due Date Last Done Comments Breast Cancer Screening-Mammogram 1954 Colon Cancer Screening-Colonoscopy 1954 Depression Screening 1954 Osteoporosis Screening-Bone Density Scan 1954 DTaP/Tdap/Td Vaccine (1 - Tdap) 1965 Hepatitis B Screening 1972 Pneumococcal vaccine 65+ (1 of 1 - PCV) 2004 Well Visit 65+ 12/27/2019 Covid-19 Vaccine (3 - 2023-2 5 season) 2024 07/30/2020, 07/06/2020 Influenza Vaccine (Season Ended) 2025 01/13/2017, 01/13/2017, 04/19/2015, Additional history exists Fall Risk Assessment 02/21/2025 02/22/2024 Hepatitis C Screening Completed 04/16/2015 Zoster Vaccine Completed 12/01/2019, 07/2019, 08/07/2019, Additional history exists Medical Devices Implanted Type Area Administrative Nursing Supervisor Device Identifier Shelf Expiration Date Model / Serial / Lot Joint Left: Knee Description:LEFT KNEE REPLAC EMENT Joint Right: Knee Description:RIGHT KNEE REPLA CMENT [employer] [id number] Occluder Talisman Pfo 30mm - [id number] Implanted:Qty: 1 on 05/16/2021 by Todd Angeles MD at [facility] [employer] [id number] / / Procedures Procedure Name Priority Date/Time Associated Diagnosis Comments HEPATITIS PANEL, ACUTE Routine 04/16/2015 6:52 PM LEGAL COUNSEL from Last 3 Months or Most Recently Relevant to Health Maintenance Results * Hepatitis panel, acute (04/16/2015 6:52 PM LEGAL COUNSEL) HepBsAg NONREACT NONREACTIVE Comment: Siemens CentaurXP using KIRILL (chemiluminescent immunoassay) technology. NONREACTIVE: IgM antibodies to Hepatitis B Surface antigen not detected. REACTIVE: IgM antibodies to Hepatitis B Surface antigen detected. Reactive results will be confirmed by neutralization testing. HBsAb (immune status) NONREACT NONREACTIVE 04/16/2015 7:41 PM LEGAL COUNSEL [facility] HISTORICAL RESULTS Comment: Siemens CentaurXP using KIRILL (chemiluminescent immunoassay) technology. NONREACTIVE: IgM antibodies to Hepatitis B Surface antibody not detected. REACTIVE: IgM antibodies to Hepatitis B Surface antibody detected. Hep B core IgM NONREACT NONREACTIVE 5 8:21 PM LEGAL COUNSEL [facility] HISTORICAL RESULTS Comment: Siemens CentaurXP using KIRILL (chemiluminescent immunoassay) technology. NONREACTIVE: IgM antibodies to Hepatitis B Core antigen not detected. EQUIVOCAL: IgM antibodies to Hepatitis B Core antigen may or may not be present. Obtain a new specimen and retest. REACTIVE: IgM antibodies to Hepatitis B Core antigen detected. Hep A IgM NONREACT NONREACTIVE 04/16/2015 8:22 PM LEGAL COUNSEL [facility] [employer] HISTORICAL RESULTS Comment: Siemens CentaurXP using KIRILL (chemiluminescent immunoassay) technology. NONREACTIVE: IgM antibodies to Hepatitis A not detected. This does not exclude possibility of exposure to Hepatitis A or early acute infection. EQUIVOCAL:IgM antibodies to Hepatitis A may or may not be present. Suggest recollection and retest. REACTIVE: Antibodies to Hepatitis A detected. Hep C Ab NONREACT NONREACTIVE 04/16/2015 8:20 PM LEGAL COUNSEL [facility] [employer] HISTORICAL RESULTS Comment: Siemens CentaurXP using KIRILL (chemiluminescent immunoassay) technology. NONREACTIVE: Antibodies to Hepatitis C not detected. This does not exclude early acute Hepatitis C infection, possibility of exposure to Hepatitis C, antibodies below detection limit, or to lack of antibody reactivity to the antigen used in this assay. EQUIVOCAL: Antibodies to Hepatitis C may or may not be present. Sample to be confirmed by real-time PCR method. REACTIVE: Antibodies to Hepatitis C detected. 04/16/2015 6:52 PM LEGAL COUNSEL 04/16/2015 7:03 PM LEGAL COUNSEL [facility] HISTORICAL RESULTS - 04/16/2015 8:20 PM LEGAL COUNSEL [employer] Draw us Jorge Alberto [facility] MICROBIOLOGY - NERAL ORDERABLES Final Result [facility] HISTORICAL RESULTS from Last 3 Months or Most Recently Relevant to Health Maintenance Insurance MEDICARE [employer] SENIOR SUPPLEMENT MEDICARE AET[employer] SENIOR SUPPLEMENT Advance Directives For more information, please contact: [phone] * Full Code (Latest Code Status on File) Date Activated Date Inactivated Comments 02/22/2024 8:07 AM 02/22/2024 3:13 PM * LIMITED - No CPR Date Activated Date Inactivated Comments 03/23/2021 3:20 PM 03/26/2021 3:53 PM Question Answer Comments Provide aggressive medical m anagement before a full cardiopulmonary arrest occurs. Use antibiotics, IV Fluids, and medical treatment unless specifically selected below: No intubation * Full Code Date Activated Date Inactivated Comments 03/23/2021 3:18 PM 03/23/2021 3:20 PM * LIMITED - No CPR Date Activated Date Inactivated Comments 03/17/2021 1:01 AM 03/21/2021 2:24 AM Question Answer Comments Provide aggressive medical m anagement before a full cardiopulmonary arrest occurs. Use antibiotics, IV Fluids, and medical treatment unless specifically selected below: No non-invasive ventilationNo cardioversionNo intubation Care Teams Bill Poster Installer Relationship Specialty Start Date End Date Sisi Garcia MD PCP - General Family Medicine 10/05/18 Todd Angeles MD Consulting Physician Interventional Cardiology 03/26/21
--- OUTSIDE RECORDS SUMMARY | 2024-09-13 14:46 | XMS_ITS | Patient Health Record ---
Author Organization 1 OF [facility] Address [address] [place] [address] Care Team Providers Care Investment Consultant Name Role Phone Sisi Garcia M.D. Primary Care Provider Frances Zayas Unavailable [phone] Allergies Allergen (clinical drug ingredient) Drug/Non Drug Allergy documented on EMR Reaction Allergy Type Onset Date Status Lisinopril Unknown Drug Allergy Active tramadol traMADol HCl Unknown Drug Allergy Acti ve codeine Codeine Unknown Drug Allergy Active Substance with sulfonamide structure and antibacterial mechanism of action (substance) Sulfa Antibiotics Unknown Drug Allergy Active Reason For Referral No Information Medications Medication SIG (Take, Route, Fr equency, Duration) Notes Start Date End Date Status Probiotic Active traZODone HCl Active Perindopril Erbumine Active Venlafaxine HCl Acti ve Indapamide Active Magnesium Active Aspirin Active Potassium Active Calcium 1200 Active Atorvastatin Calcium Active Meloxicam 7.5 MG 1 tablet Orally once a day for 30 days 04/26/2023 Active Social History Tobacco Use: Social History Observation Description Date Details (start date - stop date) Never Smoker NA - NA Tobacco Control (Standard) Question Answer Notes Tobacco use: Nonsmoker Plan Of Treatment No Information Insurance Providers Payer Name Payer Address Payer Phone Subscriber Number Group Number Insured Name Patient Relationship to Insured Coverage Start Date Coverage End Date Medicare [address] [place], [place] [id number] Phylicia Kamara Self - [facility] the [facility] [address] [address] [place] [address] [id number] Phylicia Kamara Self - patient is the insured Medical (General) History Medical History History ICD Code depression, High cholesterol, hypertensi on
--- OUTSIDE RECORDS SUMMARY | 2024-09-13 14:46 | XMS_ITS | Data Portability ---
Author Organization [facility], [facility] Address [address] [place] [address] Assessment No assessment recorded. Plan of Treatment Reminders Order Date Submit Date Provider Last Modified By Organization Details Last Modified Time Details Appointments None record ed. Lab None record ed. Referral None record ed. Procedures None record ed. Surgeries None record ed. Imaging None record ed. Medication Orders None record ed. Patient TargetsNo targets recorded. Patient InstructionsNo instructions recorded. Reason for Referral None Reported. Problems Name Problem SNOMED Code Status Onset Date Resolution Date Notes Provider Name and Address Organization Details Recorded Time Posterior vaginal wall prolapse 174698464 Active 2018 Rectocele; Progress: Stable Added By: Claudia Dewitt Add to Current Problems: YES ProblemSta tus: Current Not Available [facility] 2 11:59:35 Midline cystocele 130214609 Active 2018 Cystocele, midline; Progress: Stable Added By: Rigoberto Armstrong Add to Current Problems: YES ProblemSta tus: Current Not Available [facility] 2 11:59:31 Procedure on genitouri nary system Active 2018 Encounter for surgical aftercare following surgery on the genitourin rene system; Progress: Stable Added By: Shi Rodgers Add to Current Problems: YES ProblemSta tus: Current Not Available [facility] 2 09:58:20 Postopera tive care Active 2018 Encounter for surgical aftercare following surgery on the genitourin rene system; Progress: Stable Added By: Shi Rodgers Add to Current Problems: YES ProblemSta tus: Current Not Available [facility] 2 09:58:20 Problem Notes None recorded. Medical Equipment None Reported. Allergies Allergen ID Allergen Name Allergen Category Reaction Reaction Severity Criticality Documentation Date Start Date Code Code System Note Provider Name and Address Organization Details Recorded Time 248785 lisinopri l medicatio n Not available Not available Not available 03/21/20212018 40537 RxNorm Sever ity: Moder ate; Not Available Not Available Not Available 312147 tramadol Not available Not available Not available Not available 03/21/20212018 51928 RxNorm Sever ity: Moder ate; Not Available Not Available Not Available 040384 codeine sulfate medicatio n Not available Not available Not available 03/21/20212018 25435 RxNorm Sever ity: Moder ate; Not Available Not Available Not Available 778757 Bactrim medicatio n Not available Not available Not available 03/21/20212018 07230 9 RxNorm Sever ity: Moder ate; Not Available Not Available Not Available 432659 acetamino phen / hydrocodo ne medicatio n Not available Not available Not available 03/21/20212018 04819 2 RxNorm Sever ity: Moder ate; Not Available Not Available Not Available Medications Name Sig Start Date Stop Date Status Note LastModified by Organization Details LastModified Time amoxicill in 500 mg capsule 06/26 completed Not Available Not Available Not Available atorvasta tin 40 mg tablet active Not Available Not Available Not Available potassium chloride ER 10 mEq capsule,e xtended release TAKE 1 CAPSULE BY MOUTH ONCE DAILY active Not Available Not Available No t Available trazodone 50 mg tablet TAKE 1 TABLET BY MOUTH EVERY DAY AT BEDTIME NEEDED FOR SLEEP 06/26 completed Not Available Not Available Not Available indapamid e 2.5 mg tablet TAKE 1 TABLET BY MOUTH ONCE DAILY active Not Available Not Available No t Available aspirin 325 mg tablet 2018 active Aspirin (ASA) RxNorm: 3966 Allow Substitu tion: True Refill Denied: No Refill DateOccu rred: 09/21/19 19 Not Available Not Available Not Available bisoprolo l 10 mg-hydroc hlorothia zide 6.25 mg tablet active Not Available Not Available No t Available meloxicam 15 mg tablet active Not Available Not Available Not Available perindopr il erbumine 4 mg tablet TAKE 1 TABLET BY MOUTH ONCE DAILY active Not Available Not Available No t Available venlafaxi ne ER 150 mg capsule,e xtended release 24 hr active Not Available Not Available Not Available clopidogr el 75 mg tablet TAKE 1 TABLET BY MOUTH ONCE DAILY active Not Available Not Available No t Available amlodipin e 5 mg tablet active Not Available Not Available Not Available bisoprolo l fumarate 10 mg tablet TAKE 1 TABLET BY MOUTH ONCE DAILY active Not Available Not Available No t Available bisoprolo l fumarate 5 mg tablet TAKE 1 TABLET BY MOUTH ONCE DAILY active Not Available Not Available No t Available prednisol one acetate 1 % eye drops,[employer] pension 06/26 completed Not Available Not Available Not Available meclizine 25 mg tablet TAKE 1 TABLET BY MOUTH THREE TIMES DAILY NEEDED FOR DIZZINES S active Not Available Not Available No t Available aspirin 81 mg chewable tablet 2018 active Aspirin (ASA) RxNorm: 3966 Allow Substitu tion: True Refill Denied: No Refill DateOccu rred: 09/21/19 19 Not Available Not Available Not Available irbesarta n 300 mg tablet active Not Available Not Available Not Available Avapro 2018 active Avapro RxNorm: 13155 Allow Substitu tion: True Refill Denied: No Refill DateOccu rred: 09/21/19 19 Not Available Not Available Not Available Celexa 2018 active Celexa RxNorm: 595342 Allow Substitu tion: True Refill Denied: No Refill DateOccu rred: 09/21/19 19 Not Available Not Available Not Available bisoprolo l fumarate 2018 active Bisoprol ol Fumarate RxNorm: 910560 Allow Substitu tion: True Refill Denied: No Refill DateOccu rred: 09/21/19 19 Not Available Not Available Not Available Eliquis 5 mg tablet active Not Available Not Available No t Available Vitals Date Recorded Body height Body mass index (BMI) Body weight Systolic blood pressure Diastolic blood pressure Provider Name and Address Organization Details Last Updated DateTime 06/26/2021 162.56 cm 28.5 kg/m2 03880.33 g 112 mm[Hg] 80 mm[Hg] Marilia Cruz [facility] 2 12:55:26 Social History None recorded. Functional Status None recorded. Mental Status None recorded. Family History Nothing Reported. Medical History No medical history recorded. Gynecological HistoryNo gynecological history recorded. Obstetrics History GPAL:G 0 P 0 0 0 0 Past Encounters Encounter ID Performer Location Encounter Start Date Encounter Closed Date Diagnosis/Indication Diagnosis SNOMED-CT Code Diagnosis ICD10 Code Diagnosis Note [id number] Ursula Todd MD [facility] [address] [place] [address] 06/26/2021 12:19:09 06/27/2021 15:10:10 Screening for disorder 231238366 Z13.9 Phylicia is here for concern for a possible vaginal mesh tear or vaginal-re ctal perforatio n after a bowel movement last night. Per chart review, patient had a posterior vaginal cyst which was excised by Dr. Armstrong in 2019. Per review of op report, Dr. Armstrong did not use any mesh during this procedure, just used several layers of suture within the posterior vaginal wall to improve the thickness/ integrity of this area after the cyst was removed. Discussed/ clarified this with patient. Thorough vaginal and rectal exam performed with speculum and then manual exam as well, no abnormalit ies noted, no laceration s, perforatio ns, or defects noted. Reassuranc e provided. Pt to follow up PRN. Health Concerns Section Related Observation LastModified by Organization Detai ls LastModified Time None Recorded Concern Status LastModified by Organization Details LastModified Time None Recorded Advance Directives Directive None Recorded Payers Encounter Date Sequence Insurance Name Policy Number Policy Ybarra Covered Member ID Ybarra Member ID Guarantor Name 06/26/2021 1 [place] Phylicia Thompson Anh [id number] Anh 06/26/2021 2 [employer] (MEDICARE SUPPLEMENT) Phylicia Ariana Kamara [id number] Anh Notes Date Note Type Note Provider Name and Address Organization Details Recorded Time 06/26/2021 text/html Phylicia is here for a same-day add-on visit for concern for a possible vaginal mesh tear. She reports she had a previous surgery with Dr. Armstrong in 2019 with mesh. She states she was having a bowel movement last night and felt a pressure afterwards, felt the area and states she could feel a hole between rectum and vagina, concerned that mesh may have torn. Ursula Todd MD [address] [facility] [place], [address], [facility] IV 07/06/2021 14:14:47 OBGyn Episode No OBEpisode recorded.
--- OUTSIDE RECORDS SUMMARY | 2024-09-13 14:46 | XMS_ITS | Referral Summary ---
Author Organization [facility] at the Medical Office Building Address [address] [place] [address] Care Team Providers Care Yarn Salvager Name Role Phone Sisi Garcia MD Primary Care Provider [phone] Todd Angeles MD Unavailable Encounters Date Type Department Care Team Description 09/05/2024 Telephone [facility] Medical Group Cardiology [address] [facility] [address] [address] Asif Olmos MD Surgical Clearance from Last 3 Months Allergies Active Allergy Reactions Criticality Noted Date [...] joint 9 Dyslipidemia Hypokalemia Cerebrovascular accident (CVA) Immunizations Immunization Administration Dates Next Due Influenza, Trivalent, Preser vative Free, Intramuscular 01/13/2017,01/13/2017,04/19/2015,04/19 ZOSTER Recombinant 12/01/2019, 0,08/07/2019,08/06 Social History Tobacco Use Types Packs/Day Years [...] on file Legal Sex Female 1:09 AM EMS EDUCATOR Gender Identity Not on file Sexual Orientation Not on file 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 [employer] [id number] / / Procedures Procedure Name Priority Date/Time Associated Diagnosis Comments HEPATITIS PANEL, ACUTE Routine 04/16/2015 6:52 PM EMS EDUCATOR from Last 3 Months or Most Recently Relevant to Health Maintenance Results * Hepatitis panel, acute (04/16/2015 6:52 PM EMS EDUCATOR) HepBsAg NONREACT NONREACTIVE Comment: Siemens CentaurXP using KIRILL (chemiluminescent immunoassay) technology. NONREACTIVE: IgM antibodies to Hepatitis B Surface antigen not detected. REACTIVE: IgM antibodies to Hepatitis B Surface antigen detected. Reactive results will be confirmed by neutralization testing. HBsAb (immune status) NONREACT NONREACTIVE 04/16/2015 7:41 PM [facility] Comment: Siemens CentaurXP using KIRILL (chemiluminescent immunoassay) technology. NONREACTIVE: IgM antibodies to Hepatitis B Surface antibody not detected. REACTIVE: IgM antibodies to Hepatitis B Surface antibody detected. Hep B core IgM NONREACT NONREACTIVE 5 8:21 PM EMS EDUC[facility]ULTS Comment: Siemens CentaurXP using KIRILL (chemiluminescent immunoassay) technology. NONREACTIVE: IgM antibodies to Hepatitis B Core antigen not detected. EQUIVOCAL: IgM antibodies to Hepatitis B Core antigen may or may not be present. Obtain a new specimen and retest. REACTIVE: IgM antibodies to Hepatitis B Core antigen detected. Hep A IgM NONREACT NONREACTIVE 04/16/2015 8:22 PM EMS EDUCATOR [facility] Comment: Siemens CentaurXP using KIRILL (chemiluminescent immunoassay) technology. NONREACTIVE: IgM antibodies to Hepatitis A not detected. This does not exclude possibility of exposure to Hepatitis A or early acute infection. EQUIVOCAL:IgM antibodies to Hepatitis A may or may not be present. Suggest recollection and retest. REACTIVE: Antibodies to Hepatitis A detected. Hep C Ab NONREACT NONREACTIVE Comment: Siemens CentaurXP using KIRILL [...] to Hepatitis C detected. 04/16/2015 6:52 PM EMS EDUCATOR 04/16/2015 7:03 PM EMS EDUCATOR Trung [facility] HISTORICAL RESULTS - 04/16/2015 8:20 PM EMS EDUCATOR ALEXSANDER LO Draw Jorge Alberto [facility] Final Result [facility] HISTORICAL RESULTS from Last 3 Months or Most Recently Relevant to Health Maintenance Insurance MEDICARE [employer] SENIOR SUPPLEMENT MEDICARE AET[employer] SENIOR SUPPLEMENT Advance Directives For more information, please contact: [phone] * Full Code (Latest Code Status on [...] No non-invasive ventilationNo cardioversionNo intubation Care Teams Yarn Salvager Relationship Specialty Start Date End Date Sisi Garcia MD PCP - General Family Medicine 10/05/18 Todd Angelse MD Consulting Physician Interventional Cardiology 03/26/21
--- OUTSIDE RECORDS SUMMARY | 2024-09-13 14:47 | XMS_ITS | Encounter Summary ---
Author Organization [facility] Care Team Providers Care Air Conditioning Unit Tester Name Role Phone Sisi Garcia MD Primary Care Provider [phone] Todd Angeles MD Unavailable [phone] Encounter Details Date Type Department Care Team (Latest Contact Info) Description 06/05/2015 Orders Only [facility] CLINCONV ProviderRickie MD [address] [place] [id number] Social History Tobacco Use Types Packs/Day Years Used Date Smoking Tobacco: Never Assessed Comments Unknown Sex and Gender Information Value Date Recorded Sex Assigned at Not on file Legal Sex Female 1:09 AM DEPUTY CORONER Gender Identity Not on file Sexual Orientation Not on file documented as of this encounter Plan of Treatment Not on file documented as of this encounter Procedures Procedure Name Priority Date/Time Associated Diagnosis Comments CARDIOLOGY REPORT 10/01/2015 12: 00 AM CDT documented in this encounter Results * CARDIOLOGY REPORT (10/01/2015 12:00 AM CDT) Anatomical Region Laterality Modality Other Narrative 10/01/2015 12:00 AM CDT Ordered by an unspecified provider. Historical Provider [facility] ANGELES PARKER Final Result documented in this encounter Visit Diagnoses Not on filedocumented in this encounter Care Teams Air Conditioning Unit Tester Relationship Specialty Start Date End Date Sisi Garcia MD PCP - General Family Medicine 10/05/18 Todd Angeles MD Consulting Physician Interventional Cardiology 03/26/21 documented as of this encounter
--- OUTSIDE RECORDS SUMMARY | 2024-09-13 14:47 | XMS_ITS | Encounter Summary ---
Author Organization [facility] Care Team Providers Care Rehabilitation Construction Specialist Name Role Phone Sisi Garcia MD Primary Care Provider [phone] Todd Angeles MD Unavailable [phone] Encounter Details Date Type Department Care Team (Latest Contact Info) Description 12/07/2016 Orders Only [facility] CLINCONV ProviderRickie MD [address] [place] [address] Social History Tobacco Use Types Packs/Day Years Used Date Smoking Tobacco: Never Assessed Comments Unknown Sex and Gender Information Value Date Recorded Sex Assigned at Not on file Legal Sex Female 1:09 AM FLAT BED OPERATOR Gender Identity Not on file Sexual Orientation Not on file documented as of this encounter Plan of Treatment Not on file documented as of this encounter Procedures Procedure Name Priority Date/Time Associated Diagnosis Comments SCAN - LABS 12/07/2016 12:00 AM CDT documented in this encounter Results * SCAN - LABS (12/07/2016 12:00 AM CDT) Narrative 12/07/2016 12:00 AM CDT Ordered by an unspecified provider. Historical Provider Final Res ult documented in this encounter Visit Diagnoses Not on filedocumented in this encounter Care Teams Rehabilitation Construction Specialist Relationship Specialty Start Date End Date Sisi Garcia MD PCP - General Family Medicine 10/05/18 Todd Angeles MD Consulting Physician Interventional Cardiology 03/26/21 documented as of this encounter
--- OUTSIDE RECORDS SUMMARY | 2024-09-13 14:47 | XMS_ITS ---
Author Organization 1 OF [facility] Address [address] [facility] [address] [place] [address] Care Team Providers Care Peg Driver Name Role Phone Sisi Garcia M.D. Primary Care Provider UnavailFrances Root Unavailable [phone] Allergies Allergen (clinical drug ingredient) Drug/Non Drug Allergy documented on EMR Reaction Allergy Type Onset Date Status Lisinopril Unknown Drug Allergy Active tramadol traMADol HCl Unknown Drug Allergy Acti ve codeine Codeine Unknown Drug Allergy Active Substance with sulfonamide structure and antibacterial mechanism of action (substance) Sulfa Antibiotics Unknown Drug Allergy Active REASON FOR VISIT f/u R foot pain Medications Medication SIG (Take, Route, Fr equency, Duration) Notes Start Date End Date Status Aspirin Active Potassium Active Calcium 1200 Active Atorvastatin Calcium Active Meloxicam 7.5 MG 1 tablet Orally once a day for 30 days 04/26/2023 Active traZODone HCl Active Perindopril Erbumine Active Venlafaxine HCl Acti ve Indapamide Active Magnesium Active Probiotic Active Vital Signs Height 63 in 07/29/2023 Weight 150 lbs 07/29/2023 BMI 26.57 kg/m2 07/29/2023 Encounters Encounter Location Date Provider Diagnosis 1 OF Rachel Garza [facility] [address] [place] [address] 07/29/2023 Frances Corona Capsulitis of toe, right M77.51 and Toe pain, right M79.674 Assessments Encounter Date Diagnosis (ICD Code) Assessment Notes Treatment Notes Treatment Clinical Notes Section Notes 07/29/2023 Capsulitis of toe, right (ICD-10 - M77.51) Evaluation today included a review of medical history, review of systems, discussion of exam findings, and review of diagnoses and treatment options. Her symptoms appear to be improved. She now only has pain the first few steps after standing. She was advised that she does not need to tape the toe, if it is not helping. She can continue wearing good supportive shoes with a gel metatarsal pad. I discussed again the potential that some of her pain could be nerve related, potentially from her lower back or hips. She may need to see her primary care provider regarding this. She would like to follow-up as needed, if her symptoms change or worsen again. 07/29/2023 Toe pain, right (ICD-10 - M79.674) Plan Of Treatment Treatment Notes Assessment Notes Capsulitis of toe, right Evaluation toda y included a review of medical history, review of systems, discussion of exam findings, and review of diagnoses and treatment options. Her symptoms appear to be improved. She now only has pain the first few steps after standing. She was advised that she does not need to tape the toe, if it is not helping. She can continue wearing good supportive shoes with a gel metatarsal pad. I discussed again the potential that some of her pain could be nerve related, potentially from her lower back or hips. She may need to see her primary care provider regarding this. She would like to follow-up as needed, if her symptoms change or worsen again. Next Appt Details Follow Up: prn, Reason: Progress Notes * Phylicia KAMARA ADOB: [birth year] (67 yo F)Acc No.[id number]:07/29/2023 Progress Notes Patient: Phylicia ANGLIN Provider: Gabi Corona DPM :1955 A ge:67 Y S ex:Female Date:07/29/2023 [address] Pcp:Sisi Garcia M.D. Subjective: * Chief Complaints: * f /u R foot pain * HPI: Jacob Thompson assisting with visit:: HPI/Rooming: Mari galloway reason for visit:: Follow-up: [age] y/o female RTO for f/u of capsulitis of the RT 2nd toe, at the last appt, the pt was advised to continue icing as needed for pain, and to wear the metatarsal gel pad with good supportive shoes. A toe taping was also performed that the pt could repeat if she found it comfortable. T michael the pt reports that she is having pain when she has been sitting for too long and then gets up. Pt reports she can walk good with no pain. Pt reports that the pain goes away after about 8 steps in the morning. Pt reports that the taping did not help, although pt did have tape on the toe today. Pt reports that she does think the pad is helping. . * ROS: * MULTI-SYSTEM REVIEW:: Nausea, fever or chillls d enies. A ny change in medications since last visit? d enies. A ny changes in medical history/hospitalizations? d enies. * Medical History: * Surgical History: N o Surgical History documented. * Hospitalization/Major Diagno stic Procedure: * Medications: T akingProbiotic traZODone HCl Perindopril [...] * Vitals: W t:150lbs, Wt-k.04 kg, Ht: 63 in, BMI:26.57Index. * Examination: G eneral Examination: Constitutional / Appearance: N o acute distress , Well nourished, Appropriate personal hygiene. Mental status: C ooperative, Oriented to person, place and time, Mood and affect: normal, Judgement and intellect: normal with appropriate response to questions. Shoes today: s neakers. L ower Extremity VASCULAR: : Pulses: D P and PT pulses, palpable, bilateral. Temperature gradient: w arm from proximal to distal, bilateral. Pedal hair: p resent, bilateral. Venous insufficiency edema: N o edema noted to the right foot.. Capillary refill at distal toes less than [...] o palpable masses or nodules noted. No acute pain with palpation along the dorsal aspect of the second toe. No pain with palpation along the dorsal aspect of the second metatarsal. No acute pain with palpation along the course of the first and second interspaces. No acute discomfort with palpation along the plantar aspect of the second MPJ. No acute discomfort with end range dorsiflexion of the toe.. L ower Extremity NEURO: : General sensation appears intact, bilateral. Muscle tone within normal limits, bilateral. ? Assessment: * Assessment: 1. C apsulitis of toe, right - M77.51 (Primary) 2 . T oe pain, right - M79.674 Plan: * Treatment: * Procedure Codes: * Follow Up: p rn * Images: * Sign off status: Completed true * Provider: Gabi Corona DPM Date: 0 07/29/2023 Generated for Loly parra/Vicky/Russel on: 0 09/13/2024 02:46 PM CDT History and Physical Notes * HPI (History of Present Illness) Category Sub-Category Detail Notes Category Not es Primary reason for visit: Follow-up: 67 y/o female RTO for f/u of capsulitis of the RT 2nd toe, at the last appt, the pt was advised to continue icing as needed for pain, and to wear the metatarsal gel pad with good supportive shoes. A toe taping was also performed that the pt could repeat if she found it comfortable. Today the pt reports that she is having pain when she has been sitting for too long and then gets up. Pt reports she can walk good with no pain. Pt reports that the pain goes away after about 8 steps in the morning. Pt reports that the taping did not help, although pt did have tape on the toe today. Pt reports that she does think the pad is helping. MA assisting with visit: HPI/Rooming: Laura Examination Category Sub-Category Detail Notes Category Not es General Examination Mental status: Cooperative, Oriented to person, place and time, Mood and affect: normal, Judgement and intellect: normal with appropriate response to questions Shoes today: sneakers Constitutional / Appearance: No acute di stress , Well nourished, Appropriate personal hygiene Lower Extremity VASCULAR: Venous insufficiency e lakeisha: No edema noted to the right foot. Pulses: DP and PT pulses, pa lpable, bilateral Temperature gradient: warm from proximal to [...] No palpable masses or nodules noted. No acute pain with palpation along the dorsal aspect of the second toe. No pain with palpation along the dorsal aspect of the second metatarsal. No acute pain with palpation along the course of the first and second interspaces. No acute discomfort with palpation along the plantar aspect of the second MPJ. No acute discomfort with end range dorsiflexion of the toe. Gait Gait unremarkable wi th normal posture, propulsion and balance Lower Extremity DERM: Skin: well hydra patricia , no suspicious lesions, without ecchymosis, bilateral
--- OUTSIDE RECORDS SUMMARY | 2024-09-13 14:47 | XMS_ITS | Clinical Summary ---
Author Organization [facility] Address [address] [place] [address] Care Team Providers Care Pressing Department Supervisor Name Role Phone Sisi Garcia MD Primary Care Provider [phone] Allergies Active Allergy Reactions Criticality Noted Date Comments Codeine Shortness of Breath High 12/05/2019 Hydrocodone Unknown 12/05/2019 Lisinopril Unknown 12/05/2019 Sulfa Antibiotics Unknown 03/06/2024 Sulfamethoxazole-Trimethoprim Unknown 2019 Tramadol Itching 12/05/2019 Medications citalopram 20 MG tablet Take 1 tablet (20 mg total) by mouth daily. 09/29/19 Active irbesartan 300 MG tablet Take 1 tablet (300 mg total) by mouth daily. 09/12/19 Active bisoprolol-hydroCH LOROthiazide 10-6.25 MG tablet Take 1 tablet by mouth daily. 09/12/19 Active venlafaxine XR 150 MG 24 hr capsule Take 1 capsule (150 mg total) by mouth daily. 11/07/19 Active ipratropium 0.03 % nasal spray 1 spray by Nasal route 2 (two) times daily as needed for Rhinitis. 06/22/19 Active polycarbophil (FIBER) 625 MG tablet Take 1 tablet (625 mg total) by mouth daily. Active calcium carb-cholecalcifer ol 600-400 MG-UNIT Tab tablet Take 2 tablets by mouth daily. Active amLODIPine 5 MG tablet Take 1 tablet (5 mg total) by mouth daily. 30 tablet 12/06/19 Active Additional Information Patient not taking.Reported on 03/29/2024 aspirin 325 MG tablet Take 1 tablet (325 mg total) by mouth daily. Active aspirin 81 MG chewable tablet Chew 1 tablet (81 mg total) by mouth daily. Active ASPIRIN 81 OR Aspirin Active indapamide (LOZOL) 2.5 MG tablet Take 1 tablet (2.5 mg total) by mouth daily. 12/03/19 24 Active Perindopril Erbumine 4 MG Tab Take 1 tablet by mouth daily. Active traZODone (DESYREL) 50 MG tablet Take 1 tablet (50 mg total) by mouth nightly at bedtime. Active atorvastatin (LIPITOR) 40 MG tablet Take 1 tablet (40 mg total) by mouth nightly at bedtime. Active meclizine (ANTIVERT) 25 MG tablet take 1 tablet by mouth three times daily as needed for dizziness 04/13/20 24 Active ondansetron (ZOFRAN-ODT) 4 MG disintegrating tablet 05/05/20 24 Active potassium chloride CR (K-TAB) 20 MEQ tablet 3 (three) times daily. 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 We will get her set up for a Sed rate, C-reactive protein, and a CBC. If those are elevated we may need to consider aspiration of the joints. Will also get a 3 phase bone scan looking for loosening. Will have her get Xr's of both knees for further evaluation. Patient will be seen back after the tests are completed. Dizziness 12/05/2019 Presence of left artificial knee joint 9 Primary osteoarthritis of right knee 02/09/2019 Other fatigue 04/24/2015 Encounters Date Type Department Care Team Description 09/05/2024 Telephone [facility] [place] [address] [id number] Yuli Bellamy, RN Follow Up Call 09/04/2024 Telephone [facility] [place] [address] [id number] Guillermina Gongora, RN Follow Up Call 08/31/2024 10:20 AM CDT - 08/31/2024 10:40 AM CDT Surgery [facility] [place] [address] [id number] Kelle Do MD BLOCK GENICULAR NERVE 08/31/2024 9:42 AM CDT - 08/31/2024 10:43 AM CDT Hospital Encounter [facility] [place] [address] [id number] Kelle Do MD Discharge Disposition: Home or Self Care (Routine Discharge) 08/31/2024 Travel 08/07/2024 Telephone [facility] [place] [address] [id number] Aria Ochoa, RN Follow Up Call 07/03/2024 Telephone [facility] [place] [place] [address] [id number] Aria Ochoa, RN Follow Up Call 07/02/2024 Prep for Procedure [facility] [place] [address] [id number] Salinas Vazquez, CAR PARKER 06/30/2024 Telephone [facility] [place] [address] [id number] Aria Ochoa, RN Follow Up Call from Last 3 Months Family History Medical History Relation Comments Hypertension Mother Relation Status Comments Mother Social History Tobacco Use Types Packs/Day Years Used Date Smoking Tobacco: Never Smokeless Tobacco: Never Tobacco Cessation:Counseling Given: No Comments:na Alcohol Use Standard Drinks/Week Comments Never 0 (1 standard drink = 0.6 oz pur e alcohol) AUDIT-C Answer Date Recorded Frequency of Alcohol Consumption Never 12/05/2019 Average Number of Drinks Not on file 020 Frequency of Binge Drinking Not on file 11/2019 PHQ-2 Answer Date Recorded Patient Health Questionnaire-2 Score 0 09/20/2023 Comments No Sex and Gender Information Value Date Recorded Sex Assigned at Not on file Legal Sex Female 7:12 PM CDT Gender Identity Not on file Sexual Orientation Not on file Last Filed Vital Signs Vital Sign Reading Time Taken Comments Blood Pressure 134/75 08/31/2024 10:41 AM CDT Pulse 84 08/31/2024 10:41 AM CDT Temperature 36.3 C (97.3 F) 08/31/2024 9:52 AM CDT Respiratory Rate 16 08/31/2024 10:41 AM CDT Oxygen Saturation 96% 08/31/2024 10:41 AM CDT Inhaled Oxygen Concentration - - Weight 68 kg (150 lb) 08/31/2024 9:52 AM CDT Height 160 cm (5' 3 ) 08/31/2024 9:52 AM CDT Body Mass Index 26.57 08/31/2024 9:52 AM CDT Plan of Treatment Upcoming Encounters Date Type Department Care Team (Late st Contact Info) Description 10/16/2024 8:40 AM CDT Office Visit [facility] Orthopedic Surgery - [place] [address] [place] [address] [place] [address] [address] [place] [address] Health Maintenance Due Date Last Done Comments Colorectal Cancer Screening Colonoscopy (10 Years) 1955 Hepatitis C 1972 DTaP, Tdap and Td Vaccines ( 1 - Tdap) 1973 Mammogram Screening 1994 Pneumococcal Vaccine: 50+ Years (1 of 1 - PCV) 2004 Annual Medicare Wellness Visit 12/27/2019 Dexa Scan (General) 12/27/2019 COVID-19 Vaccine (3 - 2023-2 5 season) 2024 07/30/2020, 07/06/2020 PHQ-2 (Physician [place]) 05/31/2024 09/20/2023 RSV Immunization or 60+ Years (1 - 1-dose 75+ series) 2029 Zoster Vaccines Completed 12/01/2019, 08/07/2019 Meningococcal B Vaccine Aged Out No l onger eligible based on patient's age to complete this topic Meningococcal Vaccine Aged Out No bassam clifton eligible based on patient's age to complete this topic RSV Immunizations Under 20 Months Aged Out No longer eligible b ased on patient's age to complete this topic Goals Goal Patient Goal Type Associated Problems Recent Progress Patient-Stated? Author Return to independent living Lifestyle No Consuelo Mueller, FLIGHT SIMULATOR TEACHER Procedures Procedure Name Priority Date/Time Associated Diagnosis Comments NJX AA&/STRD GNCLR NRV BRNCH 08/31/2024 10:23 AM CDT Chronic pain of right knee XR PAIN CLINIC C-ARM Today 08/31/2024 9:52 AM CDT from Last 3 Months Results * XR PAIN CLINIC C-ARM (08/31/2024 9:52 AM CDT) Narrative Radiology, Technologist - 08/31/2024 9:52 AM CDT This report does not contain a radiologist's interpretation. Please review associated procedure and/or operative report. Kelle Do MD GENERAL IMAGING Final Result from Last 3 Months Insurance MEDICARE GENERIC - COMMERCIAL MEDICARE GENERIC - COMMERCIAL Advance Directives * Full Code (Latest Code Status on File) Date Activated Date Inactivated Comments 12/05/2019 3:24 PM 12/06/2019 10:13 PM Care Teams Pressing Department Supervisor Relationship Specialty Start Date End Date Sisi Garcia MD PCP - General FAMILY PRACTICE 12/05/19
--- OUTSIDE RECORDS SUMMARY | 2024-09-13 14:47 | XMS_ITS ---
Author Organization 1 OF Rachel riddle DPM [facility] Address [address] [address] Care Team Providers Care Professional Development Director Name Role Phone Sisi Garcia M.D. Primary Care Provider UnavailFrances Root Unavailable [phone] REASON FOR VISIT RT 2nd toe pain Encounters Encounter Location Date Provider Diagnosis 1 OF Rachel Garza [facility] [address] [address] 06/14/2023 Frances Corona Plan Of Treatment No Information Progress Notes * Phylicia KAMARA ADOB: [birth year] (68 yo F)Acc No.[id number]:06/14/2023 Progress Notes Patient: Phylicia ANGLIN Provider: Gabi Corona DPM :1955 A ge:67 Y S ex:Female Date:06/14/2023 Address:[address] [facility] Pcp:Sisi Garcia M.D. Subjective: * Chief Complaints: * 1 . RT 2nd toe pain. * Medical History: Objective: * Vitals: Assessment: Plan: * Treatment: * Images: * Electronic signature of Kiley Corona DPM on 09/13/2024 at 02:46 PM CDT Sign off status: Pending * Provider: Gabi Corona DPM Date: 0 06/14/2023 Generated for Loly parra/Vicky/eTransmitting on: 0 09/13/2024 02:46 PM CDT
--- OUTSIDE RECORDS SUMMARY | 2024-09-13 14:47 | XMS_ITS | Encounter Summary ---
Author Organization [facility] Facility Care Team Providers Care Golf Instructor Name Role Phone Sisi Garcia MD Primary Care Provider [phone] Todd Angeles MD Unavailable [phone] Encounter Details Date Type Department Care Team (Latest Contact Info) Description 05/17/2017 Orders Only [facility] CLINCONV Provider, MD Rickie [address] [place] [address] Social History Tobacco Use Types Packs/Day Years Used Date Smoking Tobacco: Never Assessed Comments Unknown Sex and Gender Information Value Date Recorded Sex Assigned at Not on file Legal Sex Female 1:09 AM TUNNEL KILN FIRER Gender Identity Not on file Sexual Orientation Not on file documented as of this encounter Plan of Treatment Not on file documented as of this encounter Procedures Procedure Name Priority Date/Time Associated Diagnosis Comments PROCEDURE - RESULT 05/17/2017 12 :00 AM TUNNEL KILN FIRER SCAN - LABS 05/17/2017 12:00 AM TUNNEL KILN FIRER documented in this encounter Results * PROCEDURE - RESULT (05/17/2017 12:00 AM TUNNEL KILN FIRER) Narrative 05/17/2017 12:00 AM TUNNEL KILN FIRER Ordered by an unspecified provider. Historical Provider Final Res ult * SCAN - LABS (05/17/2017 12:00 AM TUNNEL KILN FIRER) Narrative 05/17/2017 12:00 AM TUNNEL KILN FIRER Ordered by an unspecified provider. us Historical Provider MD Final Res ult documented in this encounter Visit Diagnoses Not on filedocumented in this encounter Care Teams Golf Instructor Relationship Specialty Start Date End Date Sisi Garcia MD PCP - General Family Medicine 10/05/18 Todd Angeles MD Consulting Physician Interventional Cardiology 03/26/21 documented as of this encounter
--- OUTSIDE RECORDS SUMMARY | 2024-09-13 14:47 | XMS_ITS | Encounter Summary ---
Author Organization [facility] Facility Care Team Providers Care Stylist Apprentice Name Role Phone Sisi Garcia MD Primary Care Provider [phone] Todd Angeles MD Unavailable [phone] Encounter Details Date Type Department Care Team (Latest Contact Info) Description 05/04/2017 Orders Only [facility] CLINCONV ProviderRickie MD [address] [place] [address] Social History Tobacco Use Types Packs/Day Years Used Date Smoking Tobacco: Never Assessed Comments Unknown Sex and Gender Information Value Date Recorded Sex Assigned at Not on file Legal Sex Female 1:09 AM HOME AID Gender Identity Not on file Sexual Orientation Not on file documented as of this encounter Plan of Treatment Not on file documented as of this encounter Procedures Procedure Name Priority Date/Time Associated Diagnosis Comments SCAN - LABS 05/04/2017 12:00 AM HOME AID SCAN - LABS 05/04/2017 12:00 AM HOME AID SCAN - LABS 05/04/2017 12:00 AM HOME AID documented in this encounter Results * SCAN - LABS (05/04/2017 12:00 AM HOME AID) Narrative 05/04/2017 12:00 AM HOME AID Ordered by an unspecified provider. Historical Provider MD Final Res ult * SCAN - LABS (05/04/2017 12:00 AM HOME AID) Narrative 05/04/2017 12:00 AM HOME AID Ordered by an unspecified provider. Historical Provider MD Final Res ult * SCAN - LABS (05/04/2017 12:00 AM HOME AID) Narrative 05/04/2017 12:00 AM HOME AID Ordered by an unspecified provider. Historical Provider MD Final Res ult documented in this encounter Visit Diagnoses Not on filedocumented in this encounter Care Teams Stylist Apprentice Relationship Specialty Start Date End Date Sisi Garcia MD PCP - General Family Medicine 10/05/18 Todd Angeles MD Consulting Physician Interventional Cardiology 03/26/21 documented as of this encounter
--- OUTSIDE RECORDS SUMMARY | 2024-09-13 14:47 | XMS_ITS | Encounter Summary ---
Author Organization [facility] Facility Care Team Providers Care Fuselage Framer Name Role Phone Sisi Garcia MD Primary Care Provider [phone] Todd Angeles MD Unavailable [phone] Encounter Details Date Type Department Care Team (Latest Contact Info) Description 05/07/2015 Orders Only [facility] CLINCONV ProviderRickie MD [address] [place] [address] Social History Tobacco Use Types Packs/Day Years Used Date Smoking Tobacco: Never Assessed Comments Unknown Sex and Gender Information Value Date Recorded Sex Assigned at Not on file Legal Sex Female 1:09 AM ACCOUNTANT BUDGET Gender Identity Not on file Sexual Orientation [...] on filedocumented in this encounter Care Teams Fuselage Framer Relationship Specialty Start Date End Date Sisi Garcia MD PCP - General Family Medicine 10/05/18 Todd Angeles MD Consulting Physician Interventional Cardiology 03/26/21 documented as of this encounter
--- OUTSIDE RECORDS SUMMARY | 2024-09-13 14:47 | XMS_ITS | Encounter Summary ---
Author Organization [facility] Facility Care Team Providers Care Press Manager Name Role Phone Sisi Garcia MD Primary Care Provider [phone] Todd Angeles MD Unavailable [phone] Encounter Details Date Type Department Care Team (Latest Contact Info) Description 05/28/2017 Orders Only [facility] CLINCONV ProviderRickie MD [address] [place] [address] Social History Tobacco Use Types Packs/Day Years Used Date Smoking Tobacco: Never Assessed Comments Unknown Sex and Gender Information Value Date Recorded Sex Assigned at Not on file Legal Sex Female 1:09 AM FISH LIVER SORTER Gender Identity Not on file Sexual Orientation Not on file documented as of this encounter Plan of Treatment Not on file documented as of this encounter Procedures Procedure Name Priority Date/Time Associated Diagnosis Comments SCAN - LABS 05/28/2017 12:00 AM FISH LIVER SORTER documented in this encounter Results * SCAN - LABS (05/28/2017 12:00 AM FISH LIVER SORTER) Narrative 05/28/2017 12:00 AM FISH LIVER SORTER Ordered by an unspecified provider. Historical Provider Final Res ult documented in this encounter Visit Diagnoses Not on filedocumented in this encounter Care Teams Press Manager Relationship Specialty Start Date End Date Sisi Garcia MD PCP - General Family Medicine 10/05/18 Todd Angeles MD Consulting Physician Interventional Cardiology 03/26/21 documented as of this encounter
== END 2024-09-13 13:37 | disposition home or self-care (01) ==
LOC: ANHIMG 13:39
PROVIDERS: PCP Family Medicine; Visit Provider Family Medicine
DX: Z12.31 Encounter for screening mammogram for malignant neoplasm of breast (principal); N63.11 Unspecified lump in the right breast, upper outer quadrant; R92.8 Other abnormal and inconclusive findings on diagnostic imaging of breast
CPT/HCPCS: 77063; 77067

== ENCOUNTER 2024-10-04 09:17 | Outpatient (CLI) | payer MEDICARE, SELFPAY ==
--- NOTE | ~2024-10-04 | MMUS_ITS ---
EXAMINATION: MM diagnostic martha RT w quinten, US breast RT limited HISTORY: Follow-up right breast mass TECHNIQUE: Additional 3-D tomosynthesis images of the right breast were performed and synthetic 2-D i mages were generated. CAD analysis was submitted and interpreted. High resolution Limited right breas t ultrasound was performed. COMPARISON: Comparison to multiple prior studies sequentially, with oldest reviewed study dated 11/2019. BREAST PARENCHYMAL COMPOSITION: Not dense: There are scattered areas of fibroglandular density. FINDINGS: MAMMOGRAPHIC FINDINGS: Nodular asymmetries in the right breast are less dense with spot compression views, likely superimpos ed fibroglandular content. There are no suspicious calcifications or architectural distortion. ULTRASOUND: Limited right breast ultrasound: At 9:00, 6 cm from the nipple there is a mildly prominent ducts. No suspicious masses to suggest karley gnancy. IMPRESSION: 1. No evidence for malignancy in the right breast 2. Routine yearly screening mammogram and regular clinical breast examination are recommended. BI-RADS Category 2: Benign finding(s). Reviewed, dictated and finalized at location A. IMPRESSION: 1. No evidence for malignancy in the right breast 2. Routine yearly screening mammogram and regular clinical breast examination a re recommended. BI-RADS Category 2: Benign finding(s).
--- OUTSIDE RECORDS SUMMARY | 2024-10-04 09:45 | XMS_ITS ---
Author Organization 1 OF Rachel riddle DPM [facility] Address [address] [address] Care Team Providers Care Pianos And Organs Salesperson Name Role Phone Sisi Garcia M.D. Primary Care Provider UnavailFrances Root Unavailable [phone] REASON FOR VISIT RT 2nd toe pain Encounters Encounter Location Date Provider Diagnosis 1 OF Rachel Gar[facility] [address] [employer] [facility] [address] [place] [address] 06/14/2023 Frances Corona Plan Of Treatment No Information Progress Notes * Phylicia KAMARA ADOB: [birth year] (68 yo F)Acc No.[id number]:06/14/2023 Progress Notes Patient: Phylicia ANGLIN Provider: Gabi Corona DPM :1955 A ge:67 Y S ex:Female Date:06/14/2023 Address:[address] [facility] Pcp:Sisi Garcia M.D. Subjective: * Chief Complaints: * 1 . RT 2nd toe pain. * Medical History: Objective: * Vitals: Assessment: Plan: * Treatment: * Images: * Electronic signature of Kiley Corona DPM on 10/04/2024 at 09:45 AM CDT Sign off status: Pending * Provider: Gabi Corona DPM Date: 0 06/14/2023 Generated for Loly parra/Vicky/eTransmitting on: 0 10/04/2024 09:45 AM CDT
--- OUTSIDE RECORDS SUMMARY | 2024-10-04 09:45 | XMS_ITS | Clinical Summary ---
Author Organization [email or web address] Address [address] [facility] [place] [address] Care Team Providers Care Import Export Manager Name Role Phone Sisi Garcia MD Primary Care Provider [phone] Deshawn Woodward MD Unavailable [phone] Source Comments [facility],non-owned Affiliates and Associated Physician Practices is amultiple site organization consisting of ambulatory clinics and hospital sitesin [place], [place] and [place]. This disclosure is being madepursuant to the Care Everywhere program and may not contain all information available regarding this patient. Last updated 18.[email or web address] Allergies Active Allergy Reactions Criticality Noted Date [...] Active ipratropium (ATROVENT) 0.03 % nasal spray [place] 1 spray into the nose 2 times [...] on file Legal Sex Female 6:08 PM HOMICIDE SQUAD COMMANDING OFFICER Gender Identity Not on file Sexual Orientation [...] this topic Medical Devices Implanted Type Area Education And Training Coordinator Device Identifier Shelf Expiration Date Model / Serial / Lot Cmnt Bone Djo Srg Cblt 40gm Hvisc Strl Implanted:Qty: 1 on 02/22/2020 by Deshawn Woodward MD at [facility] Right: Knee [employer] 01/09/2021 600-15-000 / / [id number] Cmpnt Ptlr 28mm 1 Pg Wire Ascnt Arcm Kn Implanted:Qty: 1 on 02/22/2020 by Deshawn Woodward MD at [facility] Right: Knee [employer] 01/11/2025 [id number] / / [id number] Cmpnt Fem Kn Rt Cr Cmnt Prm Vngrd Intlk Implanted:Qty: 1 on 02/22/2020 by Deshawn Woodward MD at [facility] Right: Knee [employer] 12/01/2029 [id number] / / [id number] Tray Tib 67mm Kn Cocr I Beam Implanted:Qty: 1 on 02/22/2020 by Deshawn Woodward MD at [facility] Right: Knee [employer] 12/11/2029 [id number] / / [id number] Brng [id number] Vngrd Arcm Kn Ant Stab Implanted:Qty: 1 on 02/22/2020 by Deshawn Woodward MD at [facility] Right: Knee [employer] 12/21/2024 [id number] / / [id number] Insurance MEDICARE AETNA Advance Directives * Full Code (Latest Code Status on File) Date Activated Date Inactivated Comments 02/22/2020 10:11 AM 02/23/2020 12:36 PM Care Teams Import Export Manager Relationship Specialty Start Date End Date Sisi Garcia MD [address] [place] [address] PCP - General 04/24/15 [place] [id number] [address] Surgeon Orthopedic Surgery 12/31/20
--- OUTSIDE RECORDS SUMMARY | 2024-10-04 09:45 | XMS_ITS | Clinical Summary ---
Author Organization [facility] Address [address] [place] [address] Care Team Providers Care Supervisor Grove Name Role Phone Sisi Garcia MD Primary Care Provider [phone] Allergies Active Allergy Reactions Criticality Noted Date [...] Type Department Care Team Description 09/05/2024 Telephone [facility] [place] [address] [phone] JosesitoYuli mayorga RN Follow Up Call 09/04/2024 Telephone [facility] [place] [address] [phone] Guillermina Gongora RN Follow Up Call 08/31/2024 10:20 AM CDT - 08/31/2024 10:40 AM CDT Surgery [facility] Interventional [place] [address] [phone] Kelle Do MD BLOCK GENICULAR NERVE 08/31/2024 9:42 AM CDT - 08/31/2024 10:43 AM CDT Hospital Encounter [facility] [place] [address] [phone] Kelle Do MD Discharge Disposition: Home or Self Care (Routine Discharge) 08/31/2024 Travel 08/07/2024 Telephone [facility]ventional [place] [address] [phone] Aria Ochoa, RN Follow Up Call from [...] Description 10/16/2024 8:40 AM CDT Office Visit [facility] Orthopedic Surgery - [place] [address] [place] [address] [place] [address] [place] [address] Health Maintenance Due Date Last Done Comments Colorectal Cancer Screening Colonoscopy (10 Years) 1955 Hepatitis C 1972 DTaP, Tdap and Td Vaccines ( 1 - Tdap) 1973 Mammogram Screening 1994 Pneumococcal Vaccine: 50+ Years (1 of 1 - PCV) 2004 Annual Medicare Wellness Visit 12/27/2019 Dexa Scan (General) 12/27/2019 COVID-19 Vaccine (3 - 2023-2 5 season) 2024 07/30/2020, 07/06/2020 PHQ-2 (Physician [place]) 05/31/2024 09/20/2023 RSV Immunization or 60+ Years [...] to independent living Lifestyle No Consuelo Mueller, SR. PRICING ANALYST Procedures Procedure Name Priority Date/Time Associated Diagnosis [...] Please review associated procedure and/or operative report. us Kelle Do MD GENERAL IMAGING Final Result from Last 3 Months Insurance MEDICARE GENERIC - COMMERCIAL MEDICARE GENERIC - COMMERCIAL Advance Directives * Full Code (Latest Code Status on File) Date Activated Date Inactivated Comments 12/05/2019 3:24 PM 12/06/2019 10:13 PM Care Teams Supervisor Grove Relationship Specialty Start Date End Date Sisi Garcia MD PCP - General FAMILY PRACTICE 12/05/19
--- OUTSIDE RECORDS SUMMARY | 2024-10-04 09:45 | XMS_ITS | Patient Health Record ---
Author Organization 1 OF Rachel riddle [facility] Address [address] [facility] [address] [place] [address] Care Team Providers Care Wheel Installer Name Role Phone Sisi Garcia M.D. Primary Care Provider Frances Zayas Unavailable [phone] Allergies Allergen (clinical drug ingredient) Drug/Non Drug Allergy documented on EMR Reaction Allergy Type Onset Date Status lisinopril Lisinopril Unknown Drug Allergy Activ e tramadol traMADol HCl Unknown Drug Allergy Acti [...] Medicare [address] [place], [place] [id number] Phylicia Kamara Self - [facility] the [facility] [address] [address] [place] [phone] [id number] Anh Phylicia Self - patient is the insured Medical (General) History Medical History History ICD Code depression, High cholesterol, hypertensi on
--- OUTSIDE RECORDS SUMMARY | 2024-10-04 09:45 | XMS_ITS ---
Author Organization 1 OF Rachel riddle [facility] Address [address] [employer] [facility] [address] [place] [address] Care Team Providers Care Conventional Machinist Name Role Phone Sisi Garcia M.D. Primary Care Provider UnavailFrances Root Unavailable [phone] Allergies Allergen (clinical drug ingredient) Drug/Non Drug [...] Date Provider Diagnosis 1 OF Rachel Garza [facility] [address] [address] 06/17/2023 Frances Corona Capsulitis of toe, right [...] Ball of foot gel cushion, (patient purchased) MISC. PROCEDURES: Toe taping / splinting: Toe st [...] Phylicia KAMARA ADOB: [birth year] (67 yo F)Acc No.[id number]:06/17/2023 Progress Notes Patient: Phylicia ANGLIN Provider: Gabi Corona DPM :1955 A ge:67 Y S ex:Female Date:06/17/2023 Address:[address] [place] [address], [facility] Pcp:Sisi Garcia M.D. Subjective: * Chief Complaints: [...] Follow Up: 4 Weeks,prn * Images: * [place] MAN Sign off status: Completed true * Provider: Gabi Corona DPM Date: 0 06/17/2023 Generated for Loly parra/Vicky/Russel on: 0 10/04/2024 09:44 AM CDT History and Physical Notes * HPI [...]
--- OUTSIDE RECORDS SUMMARY | 2024-10-04 09:45 | XMS_ITS | Referral Summary ---
Author Organization [facility] Address [address] [place] [address] Care Team Providers Care Marble Installer Supervisor Name Role Phone Sisi Garcia MD Primary Care Provider [phone] Todd Angeles MD Unavailable Encounters Date Type Department Care Team Description 09/14/2024 10:30 AM CDT Office Visit [facility] Cardiology [address] [place] [address] [address] Asif Olmos MD PFO (patent foramen ovale) (Primary Dx) 09/05/2024 Telephone [facility] Cardiology [address] [place] [address] [address] Asif Olmos MD Surgical Clearance [...] potassium chloride ER 20 mEq CR tablet Take 1 tablet (20 mEq total) by mouth 3 (three) times a day 08/03/2023 Active venlafaxine XR (EFFEXOR-XR) 75 mg 24 hr capsule Take 2 capsules (150 mg total) by mouth daily 06/07/2023 Active indapamide (LOZOL) 2.5 mg tablet [...] on file Legal Sex Female 1:09 AM STEEL SASH ERECTOR Gender Identity Not on file Sexual Orientation Not on file 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 Not on file Not on file Last Filed Vital Signs Vital Sign Reading Time Taken Comments Blood Pressure 120/72 09/14/2024 10:28 AM CDT Pulse 85 09/14/2024 10:28 AM CDT Temperature 36.5 C (97.7 F) 02/22/2024 9:35 AM CDT Respiratory Rate 17 02/22/2024 9:55 AM CDT Oxygen Saturation 97% 09/14/2024 10:28 AM CDT Inhaled Oxygen Concentration - - Weight 70.3 kg (155 lb) 09/14/2024 10:28 AM CDT Height 160 cm (5' 3 ) 02/22/2024 8:05 AM CDT Body Mass Index 27.46 02/22/2024 8:05 AM CDT Plan of Treatment Not on file Medical Devices Implanted Type Area Inoculator Device Identifier Shelf Expiration Date Model / Serial / Lot Joint Left: Knee Description:LEFT KNEE REPLAC EMENT Joint Right: Knee Description:RIGHT KNEE REPLA CMENT [employer] [id number] Occluder Talisman Pfo 30mm - [id number] Implanted:Qty: 1 on 05/16/2021 by oTdd Angeles MD at [facility] [employer] [id number] / / Procedures Procedure Name Priority Date/Time Associated Diagnosis Comments HEPATITIS PANEL, ACUTE Routine 04/16/2015 6:52 PM STEEL SASH ERECTOR from Last 3 Months or Most Recently Relevant to Health Maintenance Results * Hepatitis panel, acute (04/16/2015 6:52 PM STEEL SASH ERECTOR) HepBsAg NONREACT NONREACTIVE 04/16/2015 7:54 PM STEEL SASH ERECTOR [facility] HISTORICAL RESULTS Comment: Siemens DVS SciencesaurXP using KIRILL (chemiluminescent immunoassay) technology. NONREACTIVE: IgM antibodies to Hepatitis B Surface antigen not detected. REACTIVE: IgM antibodies to Hepatitis B Surface antigen detected. Reactive results will be confirmed by neutralization testing. HBsAb (immune status) NONREACT NONREACTIVE 04/16/2015 7:41 PM STEEL SASH ERECTOR [facility] HISTORICAL RESULTS Comment: Siemens DVS SciencesaurXP using KIRILL (chemiluminescent immunoassay) technology. NONREACTIVE: IgM antibodies to Hepatitis B Surface antibody not detected. REACTIVE: IgM antibodies to Hepatitis B Surface antibody detected. Hep B core IgM NONREACT NONREACTIVE 5 8:21 PM STEEL SASH ERECTOR [facility] HISTORICAL RESULTS Comment: Siemens DVS SciencesaurXP using KIRILL (chemiluminescent immunoassay) technology. NONREACTIVE: IgM antibodies to Hepatitis B Core antigen not detected. EQUIVOCAL: IgM antibodies to Hepatitis B Core antigen may or may not be present. Obtain a new specimen and retest. REACTIVE: IgM antibodies to Hepatitis B Core antigen detected. Hep A IgM NONREACT NONREACTIVE 04/16/2015 8:22 PM [facility] HISTORICAL RESULTS Comment: Siemens CentaurXP using KIRILL (chemiluminescent immunoassay) technology. NONREACTIVE: IgM antibodies to Hepatitis A not detected. This does not exclude possibility of exposure to Hepatitis A or early acute infection. EQUIVOCAL:IgM antibodies to Hepatitis A may or may not be present. Suggest recollection and retest. REACTIVE: Antibodies to Hepatitis A detected. Hep C Ab NONREACT NONREACTIVE 04/16/2015 8:20 PM [facility] [facility]OR[facility] RESULTS Comment: Siemens CentaurXP using KIRILL [...] to Hepatitis C detected. 04/16/2015 6:52 PM STEEL SASH ERECTOR 04/16/2015 7:03 PM STEEL SASH ERECTOR [employer]ung [facility] HISTORICAL RESULTS - 04/16/2015 8:20 PM STEEL SASH ERECTOR ALEXSANDER LO Draw Jorge Alberto [facility] MICROBIOLOGY - NERAL ORDERABLES Final Result [facility] HISTORICAL RESULTS from Last 3 Months or Most Recently Relevant to Health Maintenance Insurance MEDICARE Advance Directives For more information, please contact: [phone] * Full Code (Latest Code Status on [...] No non-invasive ventilationNo cardioversionNo intubation Care Teams Marble Installer Supervisor Relationship Specialty Start Date End Date Sisi Garcia MD PCP - General Family Medicine 10/05/18 Todd Angeles MD Consulting Physician Interventional Cardiology 03/26/21
--- OUTSIDE RECORDS SUMMARY | 2024-10-04 09:45 | XMS_ITS | Data Portability ---
Author Organization [facility], [facility] Address [address] [place] [address] Assessment No assessment recorded. Plan of Treatment [...] Details Recorded Time Posterior vaginal wall prolapse 480113131 Active 2018 Rectocele; Progress: Stable Added By: Claudia Dewitt Add to Current Problems: YES ProblemSta tus: Current Not Available [facility] 2 11:59:35 Midline cystocele [id number] Active 2018 Cystocele, midline; Progress: Stable Added By: Rigoberto Armstrong Add to Current Problems: YES ProblemSta tus: Current Not Available [facility] 2 11:59:31 Procedure on genitouri nary system Active 2018 Encounter for surgical aftercare following surgery on the genitourin rene system; Progress: Stable Added By: Shi Rodgers Add to Current Problems: YES ProblemSta tus: Current Not Available [facility] 2 09:58:20 Postopera tive care Active 2018 Encounter for surgical aftercare following surgery on the genitourin rene system; Progress: Stable Added By: Shi Rodgers Add to Current Problems: YES ProblemSta tus: Current Not Available [facility] 2 09:58:20 Problem Notes None recorded. Medical Equipment None Reported. Allergies Allergen ID Allergen Name Allergen Category Reaction Reaction Severity Criticality Documentation Date Start Date Code Code System Note Provider Name and Address Organization Details Recorded Time 330916 lisinopri l medicatio n Not available Not available Not available 03/21/20212018 33505 RxNorm Sever ity: Moder ate; Not Available [facility] 01:10:51 465193 tramadol Not available Not available Not available Not available 03/21/20212018 63242 RxNorm Sever ity: Moder ate; Not Available [facility] 01:10:51 516171 codeine sulfate medicatio n Not available Not available Not available 03/21/20212018 31199 RxNorm Sever ity: Moder ate; Not Available [facility] 01:10:51 913645 Bactrim medicatio n Not available Not available Not available 03/21/20212018 35623 9 RxNorm Sever ity: Moder ate; Not Available [facility] 01:10:51 699185 acetamino phen / hydrocodo ne medicatio n Not available Not available Not available 03/21/20212018 94929 2 RxNorm Sever ity: Moder ate; Not Available [facility] 01:10:51 Medications Name Sig Start Date Stop Date [...] Not Available Avapro 2018 active Avapro RxNorm: 96995 Allow Substitu tion: True Refill Denied: No Refill DateOccu rred: 09/21/19 19 Not Available Not Available Not Available Celexa 2018 active Celexa RxNorm: 524560 Allow Substitu tion: True Refill Denied: No Refill DateOccu rred: 09/21/19 19 Not Available Not Available Not Available bisoprolo l fumarate 2018 active Bisoprol ol Fumarate RxNorm: 027598 Allow Substitu tion: True Refill Denied: No Refill DateOccu rred: 09/21/19 19 Not Available Not Available Not Available Eliquis 5 mg tablet active Not Available Not Available No t Available Vitals Date Recorded Body height Body mass index (BMI) Body weight Systolic blood pressure Diastolic blood pressure Provider Name and Address Organization Details Last Updated DateTime 06/26/2021 162.56 cm 28.5 kg/m2 24992.33 g 112 mm[Hg] 80 mm[Hg] [facility] 12:55:26 Social History None recorded. Functional Status None recorded. Mental Status None recorded. Family History Nothing Reported. Medical History No medical history recorded. Gynecological HistoryNo gynecological history recorded. Obstetrics History GPAL:G 0 P 0 0 0 0 Past Encounters Encounter ID Performer Location Encounter Start Date Encounter Closed Date Diagnosis/Indication Diagnosis SNOMED-CT Code Diagnosis ICD10 Code Diagnosis Note [id number] Ursula Todd MD [facility] [address] [place] [address] 06/26/2021 12:19:09 06/27/2021 15:10:10 Screening for disorder 914215798 Z13.9 Phylicia is here for concern for [...] Recorded Advance Directives Directive None Recorded Payers Insurance Date Sequence Insurance Name Policy Number Policy Ybarra Covered Member ID Ybarra Member ID Guarantor Name 07/07/2021 1 [place] Phylicia Kamara [id number] Phylicia Kamara 07/07/2021 2 [employer] (MEDICARE SUPPLEMENT) Phylicia Kamara [id number] Phylicia Kamara Notes Date Note Type Note Provider Name [...] mesh may have torn. Ursula Todd MD [facility], [place], [address], [facility] 07/06/2021 14:14:47 OBGyn Episode No OBEpisode recorded.
--- OUTSIDE RECORDS SUMMARY | 2024-10-04 09:45 | XMS_ITS | Clinical Summary ---
Author Organization [facility] Address [address] [place] [address] Care Team Providers Care Trick Rodeo Rider Name Role Phone Sisi Garcia MD Primary Care Provider [phone] Todd Angeles MD Unavailable Allergies Active Allergy [...] foramen ovale) 03/19/2021 Suspected cerebrovascular accident (CVA) Primary hypertension 03/17/2021 Other hyperlipidemia 03/17/2021 History of CVA (cerebrovascular accident) 2020 BPPV (benign paroxysmal positional vertigo), rig ht 01/17/2020 Transient ischemic attack (TIA) 01/17/2020 OA right knee-mild/moderate 02/09/2019 Presence of left artificial knee joint 9 Dyslipidemia Hypokalemia Cerebrovascular accident (CVA) Encounters Date Type Department Care Team Description 09/14/2024 10:30 AM CDT Office Visit [facility] Cardiology [address] [place] [address] Asif Olmos MD PFO (patent foramen ovale) (Primary Dx) 09/05/2024 Telephone [facility] Cardiology [address] [place] [address] Asif Olmos MD Surgical Clearance from Last [...] on file Legal Sex Female 1:09 AM ASSIGNMENT AGENT Gender Identity Not on file Sexual Orientation [...] history exists Medical Devices Implanted Type Area Sales Representative Raw Fib[employer] Device Identifier Shelf Expiration Date Model / Serial / Lot Joint Left: Knee Description:LEFT KNEE REPLAC EMENT Joint Right: Knee Description:RIGHT KNEE REPLA CMENT [employer] [id number] Occluder Talisman Pfo 30mm - [id number] Implanted:Qty: 1 on 05/16/2021 by Todd Angeles MD at [facility] [employer] [id number] / / Procedures Procedure Name Priority Date/Time Associated Diagnosis Comments HEPATITIS PANEL, ACUTE Routine 04/16/2015 6:52 PM ASSIGNMENT AGENT from Last 3 Months or Most Recently Relevant to Health Maintenance Results * Hepatitis panel, acute (04/16/2015 6:52 PM ASSIGNMENT AGENT) HepBsAg NONREACT NONREACTIVE Comment: Siemens CentaurXP using KIRILL (chemiluminescent immunoassay) technology. NONREACTIVE: IgM antibodies to Hepatitis B Surface antigen not detected. REACTIVE: IgM antibodies to Hepatitis B Surface antigen detected. Reactive results will be confirmed by neutralization testing. HBsAb (immune status) NONREACT NONREACTIVE 04/16/2015 7:41 PM ASSIGNMENT AGENT [facility] [employer] HISTORICAL RESULTS Comment: Siemens CentaurXP using KIRILL (chemiluminescent immunoassay) technology. NONREACTIVE: IgM antibodies to Hepatitis B Surface antibody not detected. REACTIVE: IgM antibodies to Hepatitis B Surface antibody detected. Hep B core IgM NONREACT NONREACTIVE 5 8:21 PM ASSIGNMENT AGENT [facility] [employer] HISTORICAL RESULTS Comment: Siemens CentaurXP using KIRILL (chemiluminescent immunoassay) technology. NONREACTIVE: IgM antibodies to Hepatitis B Core antigen not detected. EQUIVOCAL: IgM antibodies to Hepatitis B Core antigen may or may not be present. Obtain a new specimen and retest. REACTIVE: IgM antibodies to Hepatitis B Core antigen detected. Hep A IgM NONREACT NONREACTIVE 04/16/2015 8:22 PM ASSIGNMENT AGENT [facility] [employer] HISTORICAL RESULTS Comment: Siemens CentaurXP using KIRILL (chemiluminescent immunoassay) technology. NONREACTIVE: IgM antibodies to Hepatitis A not detected. This does not exclude possibility of exposure to Hepatitis A or early acute infection. EQUIVOCAL:IgM antibodies to Hepatitis A may or may not be present. Suggest recollection and retest. REACTIVE: Antibodies to Hepatitis A detected. Hep C Ab NONREACT NONREACTIVE 04/16/2015 8:20 PM [facility] HISTORICAL RESULTS Comment: Siemens CentaurXP using KIRILL [...] to Hepatitis C detected. 04/16/2015 6:52 PM ASSIGNMENT AGENT 04/16/2015 7:03 PM ASSIGNMENT AGENT Trung [facility] HISTORICAL RESULTS - 04/16/2015 8:20 PM ASSIGNMENT AGENT ALEXSAND[employer] LO Draw Jorge Alberto [facility] MICROBIOLOGY - NERAL ORDERABLES Final Result [facility] HISTORICAL RESULTS from Last 3 Months or Most Recently Relevant to Health Maintenance Insurance MEDICARE Advance Directives For more information, please contact: [phone] * Full Code (Latest Code Status on [...] No non-invasive ventilationNo cardioversionNo intubation Care Teams Trick Rodeo Rider Relationship Specialty Start Date End Date Sisi Garcia MD PCP - General Family Medicine 10/05/18 Todd Angeles MD Consulting Physician Interventional Cardiology 03/26/21
--- OUTSIDE RECORDS SUMMARY | 2024-10-04 09:46 | XMS_ITS ---
Author Organization 1 OF Rachel riddle [facility] Address [address] [facility] [address] [place] [address] Care Team Providers Care Imaging Tech Name Role Phone Sisi Garcia M.D. Primary Care Provider UnavailFrances Root Unavailable [phone] Allergies Allergen (clinical drug ingredient) Drug/Non Drug [...] Date Provider Diagnosis 1 OF Rachel Garza [facility] [address] [place] [address] 07/29/2023 Frances Corona Capsulitis of toe, right [...] Phylicia KAMARA ADOB: [birth year] (67 yo F)Acc No.[id number]:07/29/2023 Progress Notes Patient: Phylicia ANGLIN Provider: Gabi Corona DPM :1955 A ge:67 Y S ex:Female Date:07/29/2023 Address:[address], [place] [address] [id number] Pcp:Sisi Garcia M.D. Subjective: * Chief Complaints: * f /u R foot pain * HPI: Jacob Thompson assisting with visit:: HPI/Rooming: E milie. P rimary reason for visit:: Follow-up: [age] y/o [...] 07/29/2023 Generated for Loly parra/Vicky/Russel on: 0 10/04/2024 09:45 AM CDT History and Physical Notes * [...]
--- OUTSIDE RECORDS SUMMARY | 2024-10-04 09:46 | XMS_ITS | Encounter Summary ---
Author Organization [facility] Facility Care Team Providers Care Livery Car Driver Name Role Phone Sisi Garcia MD Primary Care Provider [phone] Todd Angeles MD Unavailable [phone] Encounter Details Date Type Department Care Team (Latest Contact Info) Description 05/04/2017 Orders Only [facility] CLINCONV ProviderRickie MD [address] [place] [address] Social History Tobacco Use Types Packs/Day Years Used Date Smoking Tobacco: Never Assessed Comments Unknown Sex and Gender Information Value Date Recorded Sex Assigned at Not on file Legal Sex Female 1:09 AM NITROGLYCERIN NEUTRALIZER Gender Identity Not on file Sexual Orientation Not on file documented as of this encounter Plan of Treatment Not on file documented as of this encounter Procedures Procedure Name Priority Date/Time Associated Diagnosis Comments SCAN - LABS 05/04/2017 12:00 AM NITROGLYCERIN NEUTRALIZER SCAN - LABS 05/04/2017 12:00 AM NITROGLYCERIN NEUTRALIZER SCAN - LABS 05/04/2017 12:00 AM NITROGLYCERIN NEUTRALIZER documented in this encounter Results * SCAN - LABS (05/04/2017 12:00 AM NITROGLYCERIN NEUTRALIZER) Narrative 05/04/2017 12:00 AM NITROGLYCERIN NEUTRALIZER Ordered by an unspecified provider. Historical Provider MD Final Res ult * SCAN - LABS (05/04/2017 12:00 AM NITROGLYCERIN NEUTRALIZER) Narrative 05/04/2017 12:00 AM NITROGLYCERIN NEUTRALIZER Ordered by an unspecified provider. Historical Provider MD Final Res ult * SCAN - LABS (05/04/2017 12:00 AM NITROGLYCERIN NEUTRALIZER) Narrative 05/04/2017 12:00 AM NITROGLYCERIN NEUTRALIZER Ordered by an unspecified provider. Historical Provider MD Final Res ult documented in this encounter Visit Diagnoses Not on filedocumented in this encounter Care Teams Livery Car Driver Relationship Specialty Start Date End Date Sisi Garcia MD PCP - General Family Medicine 10/05/18 Todd Angeles MD Consulting Physician Interventional Cardiology 03/26/21 documented as of this encounter
--- OUTSIDE RECORDS SUMMARY | 2024-10-04 09:46 | XMS_ITS | Encounter Summary ---
Author Organization [facility] Facility Care Team Providers Care Website Designer Name Role Phone Sisi Garcia MD Primary Care Provider [phone] Todd Angeles MD Unavailable [phone] Encounter Details Date Type Department Care Team (Latest Contact Info) Description 05/17/2017 Orders Only [facility] CLINCONV Provider, MD Rickie [address] [place] [address] Social History Tobacco Use Types Packs/Day Years Used Date Smoking Tobacco: Never Assessed Comments Unknown Sex and Gender Information Value Date Recorded Sex Assigned at Not on file Legal Sex Female 1:09 AM CAR TRIMMER Gender Identity Not on file Sexual Orientation Not on file documented as of this encounter Plan of Treatment Not on file documented as of this encounter Procedures Procedure Name Priority Date/Time Associated Diagnosis Comments PROCEDURE - RESULT 05/17/2017 12 :00 AM CAR TRIMMER SCAN - LABS 05/17/2017 12:00 AM CAR TRIMMER documented in this encounter Results * PROCEDURE - RESULT (05/17/2017 12:00 AM CAR TRIMMER) Narrative 05/17/2017 12:00 AM CAR TRIMMER Ordered by an unspecified provider. Historical Provider Final Res ult * SCAN - LABS (05/17/2017 12:00 AM CAR TRIMMER) Narrative 05/17/2017 12:00 AM CAR TRIMMER Ordered by an unspecified provider. us Historical Provider MD Final Res ult documented in this encounter Visit Diagnoses Not on filedocumented in this encounter Care Teams Website Designer Relationship Specialty Start Date End Date Sisi Garcia MD PCP - General Family Medicine 10/05/18 Todd Angeles MD Consulting Physician Interventional Cardiology 03/26/21 documented as of this encounter
--- OUTSIDE RECORDS SUMMARY | 2024-10-04 09:46 | XMS_ITS | Encounter Summary ---
Author Organization [facility] Facility Care Team Providers Care Insurance Clerk Name Role Phone Sisi Garcia MD Primary Care Provider [phone] Todd Angeles MD Unavailable [phone] Encounter Details Date Type Department Care Team (Latest Contact Info) Description 12/07/2016 Orders Only [facility] CLINCONV ProviderRickie MD [address] [place] [address] Social History Tobacco Use Types Packs/Day Years Used Date Smoking Tobacco: Never Assessed Comments Unknown Sex and Gender Information Value Date Recorded Sex Assigned at Not on file Legal Sex Female 1:09 AM FAT PRESSROOM WORKER Gender Identity Not on file Sexual Orientation [...] on filedocumented in this encounter Care Teams Insurance Clerk Relationship Specialty Start Date End Date Sisi Garcia MD PCP - General Family Medicine 10/05/18 Todd Angeles MD Consulting Physician Interventional Cardiology 03/26/21 documented as of this encounter
--- OUTSIDE RECORDS SUMMARY | 2024-10-04 09:46 | XMS_ITS | Encounter Summary ---
Author Organization [facility] Facility Care Team Providers Care Au Pair Name Role Phone Sisi Garcia MD Primary Care Provider [phone] Todd Angeles MD Unavailable [phone] Encounter Details Date Type Department Care Team (Latest Contact Info) Description 06/05/2015 Orders Only [facility] CLINCONV ProviderRickie MD [address] [place] [address] Social History Tobacco Use Types Packs/Day Years Used Date Smoking Tobacco: Never Assessed Comments Unknown Sex and Gender Information Value Date Recorded Sex Assigned at Not on file Legal Sex Female 1:09 AM CORRECTIONAL PROGRAM OFFICER Gender Identity Not on file Sexual [...] on filedocumented in this encounter Care Teams Au Pair Relationship Specialty Start Date End Date Sisi Garcia MD PCP - General Family Medicine 10/05/18 Todd Angeles MD Consulting Physician Interventional Cardiology 03/26/21 documented as of this encounter
--- OUTSIDE RECORDS SUMMARY | 2024-10-04 09:46 | XMS_ITS | Encounter Summary ---
Author Organization [facility] Facility Care Team Providers Care Popcorn Attendant Name Role Phone Sisi Garcia MD Primary Care Provider [phone] Todd Angeles MD Unavailable + [phone] Encounter Details Date Type Department Care Team (Latest Contact Info) Description 05/07/2015 Orders Only [facility] CLINCONV ProviderRickie MD [address] [place] [address] Social History Tobacco Use Types Packs/Day Years Used Date Smoking Tobacco: Never Assessed Comments Unknown Sex and Gender Information Value Date Recorded Sex Assigned at Not on file Legal Sex Female 1:09 AM ORCHID GROWER Gender Identity Not on file Sexual Orientation [...] on filedocumented in this encounter Care Teams Popcorn Attendant Relationship Specialty Start Date End Date Sisi Garcia MD PCP - General Family Medicine 10/05/18 Todd Angeles MD Consulting Physician Interventional Cardiology 03/26/21 documented as of this encounter
--- OUTSIDE RECORDS SUMMARY | 2024-10-04 09:46 | XMS_ITS | Encounter Summary ---
Author Organization [facility] Facility Care Team Providers Care Prescription Clerk Lenses Name Role Phone Sisi Garcia MD Primary Care Provider [phone] Todd Angeles MD Unavailable [phone] Encounter Details Date Type Department Care Team (Latest Contact Info) Description 05/28/2017 Orders Only [facility] CLINCONV ProviderRickie MD [address] [place] [address] Social History Tobacco Use Types Packs/Day Years Used Date Smoking Tobacco: Never Assessed Comments Unknown Sex and Gender Information Value Date Recorded Sex Assigned at Not on file Legal Sex Female 1:09 AM RAIL SPECIALIST Gender Identity Not on file Sexual Orientation Not on file documented as of this encounter Plan of Treatment Not on file documented as of this encounter Procedures Procedure Name Priority Date/Time Associated Diagnosis Comments SCAN - LABS 05/28/2017 12:00 AM RAIL SPECIALIST documented in this encounter Results * SCAN - LABS (05/28/2017 12:00 AM RAIL SPECIALIST) Narrative 05/28/2017 12:00 AM RAIL SPECIALIST Ordered by an unspecified provider. Historical Provider Final Res ult documented in this encounter Visit Diagnoses Not on filedocumented in this encounter Care Teams Prescription Clerk Lenses Relationship Specialty Start Date End Date Sisi Garcia MD PCP - General Family Medicine 10/05/18 Todd Angeles MD Consulting Physician Interventional Cardiology 03/26/21 documented as of this encounter
== END 2024-10-04 09:18 | disposition home or self-care (01) ==
LOC: ANHIMG 09:19
PROVIDERS: PCP Family Medicine; Visit Provider Family Medicine
DX: N63.11 Unspecified lump in the right breast, upper outer quadrant (principal)
CPT/HCPCS: 76642; 77061; 77065; G0279

== ENCOUNTER 2024-12-24 07:59 | Outpatient (CLI) | payer MEDICARE, SELFPAY ==
--- NOTE | ~2024-12-24 | CT_ITS ---
CT Scan of the Chest without Contrast: Clinical Indication: Pulmonary nodule Technique: Contiguous sections were acquired throughout the chest without intravenous contrast. Dose reduction technique was used on this scan by utilizing automated exposure control and iterative recon struction technique. The dose-length product (DLP) was 133.07 mGy-cm. COMPARISON: 02/03/2024 Findings: There is no evidence of any significant mediastinal, hilar or axillary lymphadenopathy. The mediastin al soft tissues appear normal. There is no evidence of pleural or pericardial effusion. Stable 4 mm nodule right lower lobe (axial image 78). There is linear scarring left lung base, unchan ged. Images through the upper abdomen reveal no abnormalities. Impression: Stable 4 mm right lower lobe pulmonary nodule. Stable linear left basilar scarring. Reviewed, dictated and finalized at location . Impression: Stable 4 mm right lower lobe pulmonary nodule. Stable linear left basilar scarr ing.
--- NOTE | ~2024-12-24 | MR_ITS ---
MRI of the abdomen: Clinical indication: Cyst of pancreas. Technique: Coronal SSFSE ARC, WATER:coronal LAVA-FLEX, Coronal 2D FIESTA FatSat, Axial SSFSE BH ARC, Axial 3D DualEcho BH, Axial SSFSE-IR, Axial DWI b=500, Axial 2D FIESTA FatSat, pre and dynamic postco ntrast Axial LAVA ARC, postcontrast Coronal In and Opposed phase LAVA FLEX. Following intravenous adm inistration of 14 cc MultiHance gadolinium, T1-weighted fat-sat imaging was performed in the axial an d coronal planes. COMPARISON: CT dated 02/03/2024 Findings: Gallbladder is absent. The common bile duct is unremarkable. No filling defects are seen wi thin the CBD. No evidence of intrahepatic biliary ductal dilatation. The pancreatic duct is normal in size. There is a 2.7 x 1.9 cm cystic mass at the pancreatic head/uncinate process with minimal septations o r loculation. Possible communication with the main pancreatic duct, which is nondilated. Liver, spleen, adrenals, kidneys appear normal. The aorta and the paraaortic regions appear normal. Impression: 2.7 x 1.9 cm cystic mass of the uncinate process of the pancreas, most suggestive of IPMN. Follow-up exam in 1-2 years recommended. Reviewed, dictated and finalized at [facility]. Impression: 2.7 x 1.9 cm cystic mass of the uncinate process of the pancreas, most suggesti ve of IPMN. Follow-up exam in 1-2 years recommended.
--- OUTSIDE RECORDS SUMMARY | 2024-12-24 08:02 | XMS_ITS | Encounter Summary ---
Author Organization [facility] Facility Care Team Providers Care Corner Brace Block Machine Operator Name Role Phone Sisi Garcia MD Primary Care Provider [phone] Todd Angeles MD Unavailable Encounter Details Date Type Department Care Team (Latest Contact Info) Description 05/28/2017 Orders Only [facility] CLINCONV ProviderRickie MD [address] [place] [address] Social History Tobacco Use Types Packs/Day Years Used Date Smoking Tobacco: Never Assessed Comments Unknown Sex and Gender Information Value Date Recorded Sex Assigned at Not on file Legal Sex Female 1:09 AM ORTHO RN Gender Identity Not on file Sexual Orientation Not on file documented as of this encounter Plan of Treatment Not on file documented as of this encounter Procedures Procedure Name Priority Date/Time Associated Diagnosis Comments SCAN - LABS 05/28/2017 12:00 AM ORTHO RN documented in this encounter Results * SCAN - LABS (05/28/2017 12:00 AM ORTHO RN) Narrative 05/28/2017 12:00 AM ORTHO RN Ordered by an unspecified provider. Historical Provider Final Res ult documented in this encounter Visit Diagnoses Not on filedocumented in this encounter Care Teams Corner Brace Block Machine Operator Relationship Specialty Start Date End Date Sisi Garcia MD PCP - General Family Medicine 10/05/18 Todd Angeles MD Consulting Physician Interventional Cardiology 03/26/21 documented as of this encounter
--- OUTSIDE RECORDS SUMMARY | 2024-12-24 08:02 | XMS_ITS | Encounter Summary ---
Author Organization [facility] Facility Care Team Providers Care Organ Pipe Maker Metal Name Role Phone Sisi Garcia MD Primary Care Provider [phone] Todd Angeles MD Unavailable Encounter Details Date Type Department Care Team (Latest Contact Info) Description 06/05/2015 Orders Only [facility] CLINCONV Provider, MD Rickie [address] [place] [address] Social History Tobacco Use Types Packs/Day Years Used Date Smoking Tobacco: Never Assessed Comments Unknown Sex and Gender Information Value Date Recorded Sex Assigned at Not on file Legal Sex Female 1:09 AM PODIATRIST Gender Identity Not on file Sexual Orientation [...] AM CDT Ordered by an unspecified provider. us Historical Provider [facility] ANGELES PARKER Final Result documented in this encounter Visit Diagnoses Not on filedocumented in this encounter Care Teams Organ Pipe Maker Metal Relationship Specialty Start Date End Date Sisi Garcia MD PCP - General Family Medicine 10/05/18 Todd Angeles MD Consulting Physician Interventional Cardiology 03/26/21 documented as of this encounter
--- OUTSIDE RECORDS SUMMARY | 2024-12-24 08:02 | XMS_ITS | Encounter Summary ---
Author Organization [facility] Facility Care Team Providers Care Websphere Portal Architect Name Role Phone Sisi Garcia MD Primary Care Provider [phone] Todd Angeles MD Unavailable Encounter Details Date Type Department Care Team (Latest Contact Info) Description 05/04/2017 Orders Only MMG CLINCONV Provider, MD Rickie [address] [place] [address] Social History Tobacco Use Types Packs/Day Years Used Date Smoking Tobacco: Never Assessed Comments Unknown Sex and Gender Information Value Date Recorded Sex Assigned at Not on file Legal Sex Female 1:09 AM COMMODITY MANAGER Gender Identity Not on file Sexual Orientation Not on file documented as of this encounter Plan of Treatment Not on file documented as of this encounter Procedures Procedure Name Priority Date/Time Associated Diagnosis Comments SCAN - LABS 05/04/2017 12:00 AM COMMODITY MANAGER SCAN - LABS 05/04/2017 12:00 AM COMMODITY MANAGER SCAN - LABS 05/04/2017 12:00 AM COMMODITY MANAGER documented in this encounter Results * SCAN - LABS (05/04/2017 12:00 AM COMMODITY MANAGER) Narrative 05/04/2017 12:00 AM COMMODITY MANAGER Ordered by an unspecified provider. us Historical Provider MD Final Res ult * SCAN - LABS (05/04/2017 12:00 AM COMMODITY MANAGER) Narrative 05/04/2017 12:00 AM COMMODITY MANAGER Ordered by an unspecified provider. us Historical Provider MD Final Res ult * SCAN - LABS (05/04/2017 12:00 AM COMMODITY MANAGER) Narrative 05/04/2017 12:00 AM COMMODITY MANAGER Ordered by an unspecified provider. Historical Provider Final Res ult documented in this encounter Visit Diagnoses Not on filedocumented in this encounter Care Teams Websphere Portal Architect Relationship Specialty Start Date End Date Sisi Garcia MD PCP - General Family Medicine 10/05/18 Todd Angeles MD Consulting Physician Interventional Cardiology 03/26/21 documented as of this encounter
--- OUTSIDE RECORDS SUMMARY | 2024-12-24 08:02 | XMS_ITS | Clinical Summary ---
Author Organization [facility] Address [address] [place] [address] Care Team Providers Care Soldering Technician Name Role Phone Sisi Garcia MD Primary Care Provider [phone] Todd Angeles MD Unavailable Allergies Active Allergy [...] Encounters Date Type Department Care Team Description 12/04/2024 12:30 PM CDT Therapy [facility] OP Physical Therapy [address] [address] Pain in right leg; Pain in left leg; Anesthesia of skin; Paresthesia of skin; Pain due to internal orthopedic prosthetic devices, implants and grafts, initial encounter; Presence of right artificial knee joint; Presence of left artificial knee joint from Last 3 Months Immunizations Immunization Administration [...] on file Legal Sex Female 1:09 AM STATION HELPER Gender Identity Not on file Sexual Orientation [...] 10:28 AM CDT Height 160 cm (5' 3) 02/22/2024 8:05 AM CDT Body Mass Index [...] 5 season) 2024 07/30/2020, 07/06/2020 Influenza Vaccine (#1) 2025 7, 01/13/2017, 04/19/2015, Additional history exists Fall Risk Assessment 02/21/2025 02/22/2024 Hepatitis C Screening Completed 04/16/2015 Zoster Vaccine Completed 12/01/2019, 070 07/2019, 08/07/2019, Additional history exists Medical Devices Implanted Type Area Coupon Manifest Clerk Device Identifier Shelf Expiration Date Model / Serial / Lot Joint Left: Knee Description:LEFT KNEE REPLAC EMENT Joint Right: Knee Description:RIGHT KNEE REPLA CMENT [employer] [id number] Occluder Talisman Pfo 30mm - [id number] Implanted:Qty: 1 on 05/16/2021 by Todd Angeles MD at [facility] [employer] [id number] / / Procedures Procedure Name Priority Date/Time Associated Diagnosis Comments HEPATITIS PANEL, ACUTE Routine 04/16/2015 6:52 PM STATION HELPER from Last 3 Months or Most Recently Relevant to Health Maintenance Results * Hepatitis panel, acute (04/16/2015 6:52 PM STATION HELPER) HepBsAg NONREACT NONREACTIVE 04/16/2015 7:54 PM STATION HELPER [facility] HISTORICAL RESULTS Comment: Siemens CentaurXP using KIRILL (chemiluminescent immunoassay) technology. NONREACTIVE: IgM antibodies to Hepatitis B Surface antigen not detected. REACTIVE: IgM antibodies to Hepatitis B Surface antigen detected. Reactive results will be confirmed by neutralization testing. HBsAb (immune status) NONREACT NONREACTIVE 04/16/2015 7:41 PM STATION HELPER [facility] Cursogram HISTORICAL RESULTS Comment: Siemens CentaurXP using KIRILL (chemiluminescent immunoassay) technology. NONREACTIVE: IgM antibodies to Hepatitis B Surface antibody not detected. REACTIVE: IgM antibodies to Hepatitis B Surface antibody detected. Hep B core IgM NONREACT NONREACTIVE 5 8:21 PM STATION HELPER [facility] Cursogram HISTORICAL RESULTS Comment: Siemens CentaurXP using KIRILL (chemiluminescent immunoassay) technology. NONREACTIVE: IgM antibodies to Hepatitis B Core antigen not detected. EQUIVOCAL: IgM antibodies to Hepatitis B Core antigen may or may not be present. Obtain a new specimen and retest. REACTIVE: IgM antibodies to Hepatitis B Core antigen detected. Hep A IgM NONREACT NONREACTIVE 04/16/2015 8:22 PM STATION HELPER [facility] Cursogram HISTORICAL RESULTS Comment: Siemens CentaurXP using KIRILL [...] to Hepatitis C detected. 04/16/2015 6:52 PM STATION HELPER 04/16/2015 7:03 PM STATION HELPER [facility] - 04/16/2015 8:20 PM STATION HELPER ALEXSANDER BC Draw Jorge Alberto [facility] ORDERABLES Final Result [facility] HISTORICAL RESULTS from Last 3 Months or Most Recently Relevant to Health Maintenance Insurance MEDICARE MEDICARE [employer] SENIOR SUPPLEMENT Advance Directives For more information, please contact: [phone] * Full Code (Latest Code Status on [...] No non-invasive ventilationNo cardioversionNo intubation Care Teams Soldering Technician Relationship Specialty Start Date End Date Sisi Garcia MD PCP - General Family Medicine 10/05/18 Todd Angeles MD Consulting Physician Interventional Cardiology 03/26/21
--- OUTSIDE RECORDS SUMMARY | 2024-12-24 08:02 | XMS_ITS | Encounter Summary ---
Author Organization [facility] Address [facility] [place] [address] Care Team Providers Care Carpenters Name Role Phone Sisi Garcia MD Primary Care Provider [phone] Encounter Details Date Type Department Care Team (Late st Contact Info) Description 12/08/2024 [place] Message Enc [facility] Orthopedic Surgery[facility] [address] [place], [place] [id number] [place], [facility] Provider EMG Result Social History Tobacco Use Types Packs/Day Years Used Date Smoking Tobacco: Never Smokeless Tobacco: Never Comments:na Alcohol Use Standard Drinks/Week Comments Never 0 (1 standard drink = 0.6 oz pur e alcohol) AUDIT-C Answer Date Recorded Frequency of Alcohol Consumption Never 12/05/2019 Average Number of Drinks Not on file 020 Frequency of Binge Drinking Not on file 11/2019 PHQ-2 Answer Date Recorded Patient Health Questionnaire-2 Score 0 10/16/2024 Comments No Sex and Gender Information Value Date Recorded Sex Assigned at Female 10/16/2024 8:39 AM CDT Legal Sex Female 7:12 PM CDT Gender Identity Female 10/16/2024 8:39 AM CDT Sexual Orientation Straight 10/16/2024 8: 39 AM CDT documented as of this encounter Functional Status * RETIRED Are you deaf or do you have serious difficulty hearing Answer Date of Assessment Author Status No 12/05/2019 2:24 PM CDT Activ e * RETIRED Are you blind or do you have serious difficulty seeing, even when wearing glasses? Answer Date of Assessment Author Status No 12/05/2019 2:24 PM CDT Activ e * Do you have serious difficulty walking or climbing stairs? Answer Date of Assessment Author Status No 12/05/2019 2:24 PM Emilie Souza RN Active * Do you have difficulty dressing or bathing? Answer Date of Assessment Author Status No 12/05/2019 2:24 PM KELLYT Emilie Juarez RN Active * Because of a physical, mental, or emotional condition, do you have difficulty doing errands alone such as visiting a doctor's office or shopping? Answer Date of Assessment Author Status No 12/05/2019 2:24 PM KELLYT Emilie Juarez RN Active documented as of this encounter Mental Status * Because of a physical, mental, or emotional condition, do you have serious difficulty concentrating, remembering, or making decisions? Answer Entry Date Author Status No 12/05/2019 2:24 PM Emilie Souza RN Active documented in this encounter Plan of Treatment Not on file documented as of this encounter Goals Goal Patient Goal Type Associated Problems Recent Progress Patient-Stated? Author Return to independent living Lifestyle No Consuelo Mueller, FARM EQUIPMENT ENGINEER documented as of this encounter Visit Diagnoses Not on filedocumented in this encounter Additional Health Concerns Assessment Noted Time PHQ-9 Depression Total Score: 0 10/17/19 25 8:43 AM CDT documented as of this encounter Care Teams Carpenters Relationship Specialty Start Date End Date Sisi Garcia MD PCP - General FAMILY PRACTICE 12/05/19 documented as of this encounter
--- OUTSIDE RECORDS SUMMARY | 2024-12-24 08:02 | XMS_ITS | Encounter Summary ---
Author Organization [facility] Facility Care Team Providers Care Practice Assistant Name Role Phone Sisi Garcia MD Primary Care Provider [phone] Todd Angeles MD Unavailable [phone] Encounter Details Date Type Department Care Team (Latest Contact Info) Description 12/07/2016 Orders Only MMG CLINCONV ProviderRickie MD [address] [place] [address] Social History Tobacco Use Types Packs/Day Years Used Date Smoking Tobacco: Never Assessed Comments Unknown Sex and Gender Information Value Date Recorded Sex Assigned at Not on file Legal Sex Female 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 us Historical Provider Final Res ult documented in this encounter Visit Diagnoses Not on filedocumented in this encounter Care Teams Practice Assistant Relationship Specialty Start Date End Date Sisi Garcia MD PCP - General Family Medicine 10/05/18 Todd Angeles MD Consulting Physician Interventional Cardiology 03/26/21 documented as of this encounter
--- OUTSIDE RECORDS SUMMARY | 2024-12-24 08:02 | XMS_ITS | Data Portability ---
Author Organization [facility] [employer], [facility] Address [address] [place] [address] Assessment No assessment recorded. Plan of Treatment [...] Details Recorded Time Posterior vaginal wall prolapse [id number] Active 2018 Rectocele; Progress: Stable Added By: Claudia Dewitt Add to Current Problems: YES ProblemSta tus: Current Not Available [facility] 2 11:59:35 Midline cystocele [id number] Active 2018 Cystocele, midline; Progress: Stable Added By: Rigoberto Armstrong Add to Current Problems: YES ProblemSta tus: Current Not Available [facility] 2 11:59:31 Procedure on genitouri nary system Active 2018 Encounter for surgical aftercare following surgery on the genitourin rene system; Progress: Stable Added By: Shi Rodgers Add to Current Problems: YES ProblemSta tus: Current Not Available [facility] 2 09:58:20 Postopera tive care Active 2018 Encounter for surgical aftercare following surgery on the genitourin rene system; Progress: Stable Added By: Shi Rodgers Add to Current Problems: YES ProblemSta tus: Current Not Available [facility] 2 09:58:20 Problem Notes None recorded. Medical Equipment None Reported. Allergies Allergen ID Allergen Name Allergen Category Reaction Reaction Severity Criticality Documentation Date Start Date Code Code System Note Provider Name and Address Organization Details Recorded Time 013397 lisinopri l medicatio n Not available Not available Not available 03/21/20212018 41337 RxNorm Sever ity: Moder ate; Not Available [facility] 01:10:51 716431 tramadol Not available Not available Not available Not available 03/21/20212018 35691 RxNorm Sever ity: Moder ate; Not Available [facility] 01:10:51 037971 codeine sulfate medicatio n Not available Not available Not available 03/21/20212018 95058 RxNorm Sever ity: Moder ate; Not Available [facility] 01:10:51 961357 Bactrim medicatio n Not available Not available Not available 03/21/20212018 99717 9 RxNorm Sever ity: Moder ate; Not Available [facility] 01:10:51 197428 acetamino phen / hydrocodo ne medicatio n Not available Not available Not available 03/21/20212018 75720 2 RxNorm Sever ity: Moder ate; Not Available [facility] 01:10:51 Medications Name Sig Start Date Stop [...] Not Available Avapro 2018 active Avapro RxNorm: 81767 Allow Substitu tion: True Refill Denied: No Refill DateOccu rred: 09/21/19 19 Not Available Not Available Not Available Celexa 2018 active Celexa RxNorm: 981976 Allow Substitu tion: True Refill Denied: No Refill DateOccu rred: 09/21/19 19 Not Available Not Available Not Available bisoprolo l fumarate 2018 active Bisoprol ol Fumarate RxNorm: 719072 Allow Substitu tion: True Refill Denied: No Refill DateOccu rred: 09/21/19 19 Not Available Not Available Not Available Eliquis 5 mg tablet active Not Available Not Available No t Available Vitals Date Recorded Body height Body mass index (BMI) Body weight Systolic And Diastolic Provider Name and Address Organization Details Last Updated DateTime 06/26/2021 162.56 cm 28.5 kg/m2 11193.33 g 112/80 mm[Hg] Mar[facility] 06/26/2021 12:55:26 Social History None recorded. Functional Status None recorded. Mental Status None recorded. Family History Nothing Reported. Medical History No medical history recorded. Gynecological HistoryNo gynecological history recorded. Obstetrics History GPAL:G 0 P 0 0 0 0 Past Encounters Encounter ID Performer Location Encounter Start Date Encounter Closed Date Diagnosis/Indication Diagnosis SNOMED-CT Code Diagnosis ICD10 Code Diagnosis Note [id number] Ursula Todd MD [facility] [address] [place] [address] 06/26/2021 12:19:09 06/27/2021 15:10:10 Screening for disorder 496277005 Z13.9 Phylicia is here for concern for [...] Ybarra Member ID Guarantor Name 07/07/2021 1 MEDICARE-OR (MEDICARE) Phylicia Kamara [id number] Phylicia Kamara 07/07/2021 2 [employer] (MEDICARE SUPPLEMENT) Phylicia Kamara [id number] Phylicia Kamara Notes Date Note Type [...] mesh may have torn. Ursula Todd MD [facility], [place], [address], [facility] IV 07/06/2021 14:14:47 OBGyn Episode No OBEpisode recorded.
--- OUTSIDE RECORDS SUMMARY | 2024-12-24 08:02 | XMS_ITS | Encounter Summary ---
Author Organization [facility] Facility Care Team Providers Care Change Manager Name Role Phone Sisi Garcia MD Primary Care Provider [phone] Todd Angeles MD Unavailable Encounter Details Date Type Department Care Team (Latest Contact Info) Description 05/17/2017 Orders Only MMG CLINCONV Provider, MD Rickie [address] [place] [address] Social History Tobacco Use Types Packs/Day Years Used Date Smoking Tobacco: Never Assessed Comments Unknown Sex and Gender Information Value Date Recorded Sex Assigned at Not on file Legal Sex Female 1:09 AM ENGINE ASSEMBLER Gender Identity Not on file Sexual Orientation Not on file documented as of this encounter Plan of Treatment Not on file documented as of this encounter Procedures Procedure Name Priority Date/Time Associated Diagnosis Comments PROCEDURE - RESULT 05/17/2017 12 :00 AM ENGINE ASSEMBLER SCAN - LABS 05/17/2017 12:00 AM ENGINE ASSEMBLER documented in this encounter Results * PROCEDURE - RESULT (05/17/2017 12:00 AM ENGINE ASSEMBLER) Narrative 05/17/2017 12:00 AM ENGINE ASSEMBLER Ordered by an unspecified provider. us Historical Provider Final Res ult * SCAN - LABS (05/17/2017 12:00 AM ENGINE ASSEMBLER) Narrative 05/17/2017 12:00 AM ENGINE ASSEMBLER Ordered by an unspecified provider. us Historical Provider Final Res ult documented in this encounter Visit Diagnoses Not on filedocumented in this encounter Care Teams Change Manager Relationship Specialty Start Date End Date Sisi Garcia MD PCP - General Family Medicine 10/05/18 Todd Angeles MD Consulting Physician Interventional Cardiology 03/26/21 documented as of this encounter
--- OUTSIDE RECORDS SUMMARY | 2024-12-24 08:02 | XMS_ITS | Clinical Summary ---
Author Organization [facility] Address [address] [place] [address] Care Team Providers Care Dog Boarder Name Role Phone Sisi Garcia MD Primary Care Provider [phone] Allergies Active Allergy Reactions Criticality Noted Date [...] Active Additional Information Patient not taking.Reported on 10/16/2024 aspirin 325 MG tablet Take 1 tablet (325 mg total) by mouth daily. Active indapamide (LOZOL) 2.5 MG tablet Take [...] Active Problems Problem Noted Date Diagnosed Date Pain in both lower extremities 10/16/2024 Assessment & Plan (10/16/2024 5:38 PM CDT): She had improvement for about 10 days with her first back injection through pain management. She had really no significant relief with genicular nerve ablation. She doesn't think it's really coming from the knees. She also thinks it may be coming centrally more from her back. Makes more sense she got relief with her first injection and that's where it's coming from. We'll get her set up with an EMG- NCV to bilateral lower extremities to rule out neuropathy versus radiculopathy. We'll see her back after the test. Chronic low back pain withou t sciatica, unspecified back pain laterality 10/16/2024 Numbness and tingling of both lower extremities 10/16/2024 Lumbar radiculopathy 03/06/2024 Chronic pain of both knees 03/06/2024 Chronic pain of right knee 03/06/2024 [...] Encounters Date Type Department Care Team Description 12/08/2024 [place] Message Enc [facility] [address] [place] [address] [facility] Provider EMG Result 12/04/2024 Scan [employer] INFO SRVCS Scanned, Doc [facility] EMG (SCAN) 10/19/2024 Telephone [facility] Orthopedic Surgery [facility] [address] [place], [place] [id number] Neeraj Yanez DO Question 10/16/2024 8:40 AM CDT Office Visit [facility] Orthopedic Surgery [facility] [address] [place] [address] Neeraj Yanez DO Knee Pain (Right Knee Pain) 10/16/2024 Travel from Last 3 Months Family History Medical [...] Orientation Straight 10/16/2024 8: 39 AM CDT Last Filed Vital Signs Vital Sign Reading Time Taken Comments Blood Pressure 130/70 10/16/2024 8:39 AM CDT Pulse 94 10/16/2024 8:39 AM CDT Temperature 36 C (96.8 F) 10/16/2024 8:39 AM CDT Respiratory Rate 16 08/31/2024 10:41 AM CDT Oxygen Saturation 97% 10/16/2024 8:39 AM CDT Inhaled Oxygen Concentration - - Weight 69 kg (152 lb 3.2 oz) 10/16/2024 8:39 AM CDT Height 160 cm (5' 3) 10/16/2024 8:39 AM CDT Body Mass Index 26.96 10/16/2024 8:39 AM CDT Plan of Treatment Health Maintenance [...] - 2023-2 5 season) 2024 07/30/2020, 07/06/2020 RSV Immunization or 60+ Years (1 - 1-dose 75+ series) 2029 Zoster Vaccines Completed 12/01/2019, 08/07/2019 PHQ-2 (Physician [place]) Completed 10/16/2024 Meningococcal B Vaccine Aged Out No l [...] Return to independent living Lifestyle No Consuelo Mueller MSW Procedures Procedure Name Priority Date/Time Associated Diagnosis Comments EMG GENERIC (SCAN ORDER) 12/04/2024 from Last 3 Months Results * EMG GENERIC (SCAN ORDER) (12/04/2024) 12/04/2024 us Doc [facility] Scanned SCANNING Final Resu lt from Last 3 Months Insurance MEDICARE GENERIC - COMMERCIAL MEDICARE GENERIC - COMMERCIAL Advance Directives * Full Code (Latest Code Status on File) Date Activated Date Inactivated Comments 12/05/2019 3:24 PM 12/06/2019 10:13 PM Care Teams Dog Boarder Relationship Specialty Start Date End Date Sisi Garcia MD PCP - General FAMILY PRACTICE 12/05/19
--- OUTSIDE RECORDS SUMMARY | 2024-12-24 08:02 | XMS_ITS | Referral Summary ---
Author Organization [facility] Building Address [address] [place] [id number] Care Team Providers Care Sharepoint Web Developer Name Role Phone Sisi Garcia MD Primary Care Provider [phone] Todd Angeles MD Unavailable [phone] Encounters Date Type Department Care Team Description 12/04/2024 12:30 PM CDT Therapy [facility] OP Physical Therapy [facility] [address] [address] Pain in right leg; Pain in left leg; Anesthesia of skin; Paresthesia of skin; Pain due to internal orthopedic prosthetic devices, implants and grafts, initial encounter; Presence of right artificial knee joint; Presence of left artificial knee joint from Last 3 Months Allergies Active Allergy [...] on file Legal Sex Female 1:09 AM IRRIGATION TAX ASSESSOR COLLECTOR Gender Identity Not on file Sexual Orientation [...] on file Medical Devices Implanted Type Area Design Engineering Technician Device Identifier Shelf Expiration Date Model / Serial / Lot Joint Left: Knee Description:LEFT KNEE REPLAC EMENT Joint Right: Knee Description:RIGHT KNEE REPLA CMENT [employer] [id number] Occluder Talisman Pfo 30mm - [id number] Implanted:Qty: 1 on 05/16/2021 by oTdd Angeles MD at [facility] [employer] [id number] / / Procedures Procedure Name Priority Date/Time Associated Diagnosis Comments HEPATITIS PANEL, ACUTE Routine 04/16/2015 6:52 PM IRRIGATION TAX ASSESSOR COLLECTOR from Last 3 Months or Most Recently Relevant to Health Maintenance Results * Hepatitis panel, acute (04/16/2015 6:52 PM IRRIGATION TAX ASSESSOR COLLECTOR) HepBsAg NONREACT NONREACTIVE 04/16/2015 7:54 PM IRRIGATION TAX ASSESSOR COLLECTOR [facility] HISTORICAL RESULTS Comment: Siemens Rhone ApparelaurXP using KIRILL (chemiluminescent immunoassay) technology. NONREACTIVE: IgM antibodies to Hepatitis B Surface antigen not detected. REACTIVE: IgM antibodies to Hepatitis B Surface antigen detected. Reactive results will be confirmed by neutralization testing. HBsAb (immune status) NONREACT NONREACTIVE 04/16/2015 7:41 PM IRRIGATION TAX ASSESSOR COLLECTOR [facility] [employer] HISTORICAL RESULTS Comment: Siemens Rhone ApparelaurXP using KIRILL (chemiluminescent immunoassay) technology. NONREACTIVE: IgM antibodies to Hepatitis B Surface antibody not detected. REACTIVE: IgM antibodies to Hepatitis B Surface antibody detected. Hep B core IgM NONREACT NONREACTIVE 5 8:21 PM IRRIGATION TAX ASSESSOR COLLECTOR [facility] [employer] HISTORICAL RESULTS Comment: Siemens Rhone ApparelaurXP using KIRILL (chemiluminescent immunoassay) technology. NONREACTIVE: IgM antibodies to Hepatitis B Core antigen not detected. EQUIVOCAL: IgM antibodies to Hepatitis B Core antigen may or may not be present. Obtain a new specimen and retest. REACTIVE: IgM antibodies to Hepatitis B Core antigen detected. Hep A IgM NONREACT NONREACTIVE Comment: Siemens CentaurXP using KIRILL (chemiluminescent immunoassay) technology. NONREACTIVE: IgM antibodies to Hepatitis A not detected. This does not exclude possibility of exposure to Hepatitis A or early acute infection. EQUIVOCAL:IgM antibodies to Hepatitis A may or may not be present. Suggest recollection and retest. REACTIVE: Antibodies to Hepatitis A detected. Hep C Ab NONREACT NONREACTIVE 04/16/2015 8:20 PM IRRIGATION TAX ASSESSOR COLLECTOR [facility] HISTORICAL RESULTS Comment: Siemens CentaurXP using KIRILL [...] to Hepatitis C detected. 04/16/2015 6:52 PM IRRIGATION TAX ASSESSOR COLLECTOR 04/16/2015 7:03 PM IRRIGATION TAX ASSESSOR COLLECTOR Trung [facility] HISTORICAL RESULTS - 04/16/2015 8:20 PM IRRIGATION TAX ASSESSOR COLLECTOR ALEXSANDER LO Draw Jorge Alberto [facility] MICROBIOLOGY - NERAL ORDERABLES Final Result [facility] HISTORICAL RESULTS from Last 3 Months or Most Recently Relevant to Health Maintenance Insurance MEDICARE MEDICARE AETNA SENIOR SUPPLEMENT Advance Directives For more information, please contact: [phone] * Full Code (Latest Code Status on [...] No non-invasive ventilationNo cardioversionNo intubation Care Teams Sharepoint Web Developer Relationship Specialty Start Date End Date Sisi Garcia MD PCP - General Family Medicine 10/05/18 Todd Angeles MD Consulting Physician Interventional Cardiology 03/26/21
--- OUTSIDE RECORDS SUMMARY | 2024-12-24 08:02 | XMS_ITS | Clinical Summary ---
Author Organization [facility] Address [address] [facility] [place] [address] Care Team Providers Care Pump Mechanic Name Role Phone Sisi Garcia MD Primary Care Provider [phone] Deshawn Woodward MD Unavailable Source Comments [facility],non-owned Affiliates and Associated Physician Practices is amultiple site organization consisting of ambulatory clinics and hospital sitesin [place], [place], [place] and [place]. This disclosure is being madepursuant to the Care Everywhere program and may not contain all information available regarding this patient. Last updated 18.[facility] Allergies Active Allergy Reactions Criticality Noted Date [...] Active ipratropium (ATROVENT) 0.03 % nasal spray [place] 1 spray into the nose 2 times [...] on file Legal Sex Female 6:08 PM WAREHOUSE SORTER Gender Identity Not on file Sexual [...] 6:18 AM CDT Height 160 cm (5' 3) 02/22/2020 6:18 AM CDT Body Mass Index [...] season) 2024 DEPRESSION SCREENING 05/31/2024 INFLUENZA VACCINE (#1) 2025 7, 04/19/2015 HEPATITIS B VACCINE Aged Out No [...] this topic Medical Devices Implanted Type Area Military Education Coordinator Device Identifier Shelf Expiration Date Model / Serial / Lot Cmnt Bone Djo Srg Cblt 40gm Hvisc Strl Implanted:Qty: 1 on 02/22/2020 by Deshawn Woodward MD at [facility] Right: Knee [employer] 01/09/2021 [id number] / / [id number] Cmpnt Ptlr 28mm 1 Pg Wire Ascnt Arcm Kn Implanted:Qty: 1 on 02/22/2020 by Deshawn Woodward MD at [facility] Right: Knee [employer] 01/11/2025 [id number] / / [id number] Cmpnt Fem Kn Rt Cr Cmnt Prm Vngrd Intlk Implanted:Qty: 1 on 02/22/2020 by Deshawn Woodward MD at [facility] Right: Knee [employer] 12/01/2029 [id number] / / [id number] Tray Tib 67mm Kn Cocr I Beam Implanted:Qty: 1 on 02/22/2020 by Deshawn Woodward MD at [facility] Right: Knee [employer] 12/11/2029 [id number] / / [id number] Brng [id number] Vngrd Arcm Kn Ant Stab Implanted:Qty: 1 on 02/22/2020 by Deshawn Woodward MD at [facility] Right: Knee [employer] 12/21/2024 [id number] / / [id number] Insurance MEDICARE AETNA Advance Directives * Full Code (Latest Code Status on File) Date Activated Date Inactivated Comments 02/22/2020 10:11 AM 02/23/2020 12:36 PM Care Teams Pump Mechanic Relationship Specialty Start Date End Date Sisi Garcia MD [address] [place] [address] PCP - General 04/24/15 [place] [id number] [facility] [address] [place] [address] Surgeon Orthopedic Surgery 12/31/20
--- OUTSIDE RECORDS SUMMARY | 2024-12-24 08:02 | XMS_ITS | Encounter Summary ---
Author Organization 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
--- OUTSIDE RECORDS SUMMARY | 2024-12-24 08:02 | XMS_ITS | Patient Health Record ---
Author Organization 1 OF Rachel riddle [facility] Address [address] [facility] [address] [place] [address] Care Team Providers Care Seat Covers Trimmer Name Role Phone Sisi Garcia M.D. Primary Care Provider Frances Zayas Unavailable [phone] Allergies Allergen (clinical drug ingredient) Drug/Non Drug [...] 7.5 MG 1 tablet Orally once a day; Duration: 30 days 04/26/2023 Active Social History Tobacco [...] Medicare [address] [place], [place] [id number] Phylicia Kamara Self - patient is the [facility] [address] [address] [place] [phone] [id number] Phylicia Kamara Self - patient is the insured Medical (General) History Medical History History ICD Code depression, High cholesterol, hypertensi on
== END 2024-12-24 08:00 | disposition home or self-care (01) ==
PROVIDERS: PCP Family Medicine; Visit Provider Family Medicine
DX: K86.2 Cyst of pancreas (principal); R91.1 Solitary pulmonary nodule
CPT/HCPCS: 71250; 74183; 76376; A9577

== ENCOUNTER 2025-05-16 13:19 | Outpatient (CLI) | payer MEDICARE, SELFPAY ==
--- NOTE | ~2025-05-16 | XR_ITS ---
EXAMINATION: XR wrist LT min 3V, 05/16/2025 13:35 WELL [facility]OWER HISTORY: M25.532 - Pain in left wrist, CHRONIC COMPARISON: No comparisons available. Findings: No acute fracture or malalignment. Moderate degenerative changes. Soft tissue swelling. Impression: No acute fracture or malalignment. Reviewed, dictated and finalized at location P. BLOWER Impression: No acute fracture or malalignment.
--- OUTSIDE RECORDS SUMMARY | 2025-05-16 16:00 | XMS_ITS | Clinical Summary ---
Author Organization [facility] Address [address] [place] [address] Care Team Providers Care Fast Food Worker Name Role Phone Sisi Garcia MD Primary Care Provider [phone] Allergies Active Allergy Reactions Criticality Noted Date Comments Codeine Shortness of Breath High 12/05/2019 Hydrocodone Unknown 12/05/2019 Lisinopril Unknown 12/05/2019 Sulfa Antibiotics Unknown 03/06/2024 Sulfamethoxazole-Trimethoprim Unknown 2019 Tramadol Itching 12/05/2019 Medications venlafaxine XR 150 MG 24 hr capsule Take 1 capsule (150 mg total) by mouth daily. 11/07/19 20 Active calcium carb-cholecalci ferol 600-400 MG-UNIT Tab tablet Take 2 tablets by mouth daily. Active aspirin 325 MG tablet Take 1 tablet [...] as needed for dizziness 04/13/20 24 Active potassium chloride CR (K-TAB) 20 MEQ tablet 3 (three) times daily. 07/03/19 25 Active gabapentin (NEURONTIN) 100 MG capsuleIndicati ons:Pain in both lower extremities Take 1 capsule (100 mg total) by mouth 3 (three) times daily. 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 Follow package directions 1 each 04/09/20 25 Active Active Problems Problem Noted Date Diagnosed Date Pain in both lower extremities 10/16/2024 Assessment & Plan (02/27/2025 10:14 AM CDT): Recommendation at this time we went over the risks the benefits as well as the alternatives. We went over the risks, benefits, as well as the alternatives. We'll try the Neurontin 100 mg three times a day, give her three to five days, and slowly titrate it up, mostly at night, and then we'll see her back in six weeks if needed. Assessment & Plan (10/16/2024 5:38 PM CDT): [...] initia l encounter 09/21/2023 Assessment & Plan (04/10/2025 7:26 AM STEEL TESTER): Assessment: Has been over a year and a half since previous three-phase bone scan. Recommendation at this time we went over the risks the benefits as well as the alternatives. So we'll repeat the three-phase bone scan for potential loosening. Gave her Medrol Dose Pack at least for getting her through her couple of trips coming up. Will not inject knee due to risk of infection with prosthesis in place. We'll see her back in about three months. Assessment & Plan (01/22/2025 11:26 AM CDT): We reviewed the risks, benefits, as well as alternatives. At this time, we will order a metal artifact reduction MRI of the right knee to assess. We will see her back after this is obtained. We did discuss repeating the 3 phase bone scan, however, she would like to hold off on this for now. Assessment & Plan (09/21/2023 6:57 AM CDT): [...] Encounters Date Type Department Care Team Description 04/09/2025 2:50 PM STEEL TESTER Office Visit [facility] Orthopedic [facility] [address] [address] [address] Neeraj Yanez DO Knee Pain (Right Knee Pain) 04/09/2025 Travel 02/26/2025 3:30 PM CDT Office Visit [facility] Orthopedic [facility] [address] [place] [address] Neeraj Yanez DO Results (F/U discuss MRI results ) 02/26/2025 Travel from Last 3 Months Family History [...] Sign Reading Time Taken Comments Blood Pressure 134/70 04/09/2025 2:45 PM STEEL TESTER Pulse 78 04/09/2025 2:45 PM STEEL TESTER Temperature 36.1 C (97 F) 04/09/2025 2:45 PM STEEL TESTER Respiratory Rate 16 08/31/2024 10:41 AM CDT Oxygen Saturation 100% 04/09/2025 2:45 PM STEEL TESTER Inhaled Oxygen Concentration - - Weight 70.9 kg (156 lb 3.2 oz) 04/09/2025 2:45 P M STEEL TESTER Height 160 cm (5' 3) 04/09/2025 2:45 PM STEEL TESTER Body Mass Index 27.67 04/09/2025 2:45 PM STEEL TESTER Plan of Treatment Health Maintenance Due Date Last Done Comments Colorectal Cancer Screening Colonoscopy (10 Years) 1954 Hepatitis C 1972 DTaP, Tdap and Td Vaccines (1 - Tdap) 1973 Mammogram Screening 1994 Pneumococcal Vaccine: 50+ Years (1 of 1 - PCV) 2004 Annual Medicare Wellness Visit 12/27/2019 Dexa Scan (General) 12/27/2019 COVID-19 Vaccine ( - season) 2025 03/04/2022, 10/23/2021, 05/27/2021, Additional history exists Influenza Adult (#1) 2025 03/31/2023, 03/04/2022, 01/13/2017, Additional history exists RSV Immunization or 60+ Years (1 - 1-dose 75+ series) 2029 Zoster Vaccines Completed 12/01/2019, 08/07/2019 PHQ-2 (Physician [place]) Completed 10/16/2024 Hepatitis A Vaccines Aged Out No long er eligible based on patient's age to complete this topic Meningococcal B Vaccine Aged Out No l onger eligible based on patient's age to complete this topic Meningococcal Vaccine Aged Out No bassam clifton eligible based on patient's age to complete this topic RSV Immunizations Under 20 Months Aged Out No longer eligible based on patient's age to complete this topic Goals Goal Patient Goal Type Associated Problems Recent Progress Patient-Stated? Author Return to independent living Lifestyle No Consuelo Mueller, [facility] Insurance MEDICARE GENERIC - COMMERCIAL MEDICARE GENERIC - COMMERCIAL Advance Directives * Full Code (Latest Code Status on File) Date Activated Date Inactivated Comments 12/05/2019 3:24 PM 12/06/2019 10:13 PM Care Teams Fast Food Worker Relationship Specialty Start Date End Date Sisi Garcia MD PCP - General FAMILY PRACTICE 12/05/19
--- OUTSIDE RECORDS SUMMARY | 2025-05-16 16:00 | XMS_ITS | Clinical Summary ---
Author Organization [facility] [employer] Address [address] [facility] [place] [address] Care Team Providers Care Corporate Director Of Human Resources Name Role Phone Sisi Garcia MD Primary Care Provider [phone] Deshawn Woodward MD Unavailable [phone] Source Comments [facility],non-owned Affiliates and Associated Physician Practices is amultiple site organization consisting of ambulatory clinics and hospital sitesin [place], [place], [place] and [place]. This disclosure is being madepursuant to the Care Everywhere program and may not contain all information available regarding this patient. Last updated 18.[facility] [employer] Allergies Active Allergy Reactions Criticality Noted Date [...] Active ipratropium (ATROVENT) 0.03 % nasal spray [place] 1 spray into the nose 2 times [...] on file Legal Sex Female 6:08 PM ANESTHESIOLOGIST ASSISTANT CERTIFIED Gender Identity Not on file Sexual Orientation [...] 50+ (1 of 1 - PCV) 2004 Respiratory Syncytial Virus (RSV) Vaccine Pt: or over 60 yrs (1 - Risk 50-74 years 1-dose series) 2004 ZOSTER VACCINE (1 of 2) 2004 DEPRESSION SCREENING 05/31/2024 COVID-19 VACCINE (1 - 2024-2 6 season) 2025 INFLUENZA VACCINE (#1) 2025 7, 04/19/2015 HEPATITIS [...] this topic Medical Devices Implanted Type Area International Organizer Device Identifier Shelf Expiration Date Model / Serial / Lot Cmnt Bone Djo Srg Cblt 40gm Hvisc Strl Implanted:Qty: 1 on 02/22/2020 by Deshawn Woodward MD at [facility] Right: Knee [employer] 01/09/2021 600-15-000 / / [id number] Cmpnt Ptlr 28mm 1 Pg Wire Ascnt Arcm Kn Implanted:Qty: 1 on 02/22/2020 by Deshawn Woodward MD at [facility] Right: Knee [employer] 01/11/2025 [id number] / / [id number] Cmpnt Fem Kn Rt Cr Cmnt Prm Vngrd Intlk Implanted:Qty: 1 on 02/22/2020 by Deshawn Woodward MD at [facility] Right: Knee [employer] 12/01/2029 [id number] / / [id number] Tray Tib 67mm Kn Cocr I Beam Implanted:Qty: 1 on 02/22/2020 by Deshawn Woodward MD at [facility] Right: Knee [employer] 12/11/2029 [id number] / / [id number] Brng [id number] Vngrd Arcm Kn Ant Stab Implanted:Qty: 1 on 02/22/2020 by Deshawn Woodward MD at [facility] Right: Knee [employer] 12/21/2024 [id number] / / [id number] Insurance MEDICARE AETNA Advance Directives * Full Code (Latest Code Status on File) Date Activated Date Inactivated Comments 02/22/2020 10:11 AM 02/23/2020 12:36 PM Care Teams Corporate Director Of Human Resources Relationship Specialty Start Date End Date Sisi Garcia MD [address] [place] [address] PCP - General 04/24/15 [place] [address] [facility] [address] [place] [address] Surgeon Orthopedic Surgery 12/31/20
--- OUTSIDE RECORDS SUMMARY | 2025-05-16 16:00 | XMS_ITS | Encounter Summary ---
Author Organization [facility] Facility Care Team Providers Care Patent Searcher Name Role Phone Sisi Garcia MD Primary Care Provider [phone] Todd Angeles MD Unavailable Encounter Details Date Type Department Care Team (Latest Contact Info) Description 05/17/2017 Orders Only [facility] CLINCONV Provider, MD Rickie [address] [place] [address] Social History Tobacco Use Types Packs/Day Years Used Date Smoking Tobacco: Never Assessed Comments Unknown Sex and Gender Information Value Date Recorded Sex Assigned at Not on file Legal Sex Female 1:09 AM RETANNER Gender Identity Not on file Sexual Orientation Not on file documented as of this encounter Plan of Treatment Not on file documented as of this encounter Procedures Procedure Name Priority Date/Time Associated Diagnosis Comments PROCEDURE - RESULT 05/17/2017 12 :00 AM RETANNER SCAN - LABS 05/17/2017 12:00 AM RETANNER documented in this encounter Results * PROCEDURE - RESULT (05/17/2017 12:00 AM RETANNER) Narrative 05/17/2017 12:00 AM RETANNER Ordered by an unspecified provider. us Historical Provider Final Res ult * SCAN - LABS (05/17/2017 12:00 AM RETANNER) Narrative 05/17/2017 12:00 AM RETANNER Ordered by an unspecified provider. us Historical Provider Final Res ult documented in this encounter Visit Diagnoses Not on filedocumented in this encounter Care Teams Patent Searcher Relationship Specialty Start Date End Date Sisi Garcia MD PCP - General Family Medicine 10/05/18 Todd Angeles MD Consulting Physician Interventional Cardiology 03/26/21 documented as of this encounter
--- OUTSIDE RECORDS SUMMARY | 2025-05-16 16:00 | XMS_ITS | Clinical Summary ---
Author Organization [facility] Address [address] [place] [id number] Care Team Providers Care Gambling Broker Name Role Phone Sisi Garcia MD Primary Care Provider [phone] Todd Angeles MD Unavailable Allergies Active Allergy [...] on file Legal Sex Female 1:09 AM IRONER MACHINE Gender Identity Not on file Sexual Orientation Not on file Occupation Industry Job Start Date Job End Date Not on file Not on file Not [...] 1955 DTaP/Tdap/Td Vaccine (1 - Tdap) 1965 Pneumococcal vaccine 65+ (1 of 1 - PCV) 2004 Well Visit 65+ 12/27/2019 Covid-19 Vaccine (3 - 2024-2 6 season) 2025 07/30/2020, 07/06/2020 Influenza Vaccine (#1) 2025 7, 01/13/2017, 04/19/2015, Additional history exists Fall Risk Assessment 02/21/2025 02/22/2024 Hepatitis B Screening Completed 04/16/2015 Hepatitis C Screening Completed 04/16/2015 Zoster Vaccine Completed 12/01/2019, 07/2019, 08/07/2019, Additional history exists Medical Devices Implanted Type Area Medical Records Receptionist Device Identifier Shelf Expiration Date Model / Serial / Lot Joint Left: Knee Description:LEFT KNEE REPLAC EMENT Joint Right: Knee Description:RIGHT KNEE REPLA CMENT [employer] [id number] Occluder Talisman Pfo 30mm - [id number] Implanted:Qty: 1 on 05/16/2021 by Todd Angeles MD at [facility] Er [employer] [id number] / / Procedures Procedure Name Priority Date/Time Associated Diagnosis Comments HEPATITIS PANEL, ACUTE Routine 04/16/2015 6:52 PM IRONER MACHINE from Last 3 Months or Most Recently Relevant to Health Maintenance Results * Hepatitis panel, acute (04/16/2015 6:52 PM IRONER MACHINE) HepBsAg NONREACT NONREACTIVE 04/16/2015 7:54 PM IRONER MACHINE [facility] HISTORICAL RESULTS Comment: Siemens CentaurXP using KIRILL (chemiluminescent immunoassay) technology. NONREACTIVE: IgM antibodies to Hepatitis B Surface antigen not detected. REACTIVE: IgM antibodies to Hepatitis B Surface antigen detected. Reactive results will be confirmed by neutralization testing. HBsAb (immune status) NONREACT NONREACTIVE 04/16/2015 7:41 PM IRONER MACHINE [facility] HISTORICAL RESULTS Comment: Siemens CentaurXP using KIRILL (chemiluminescent immunoassay) technology. NONREACTIVE: IgM antibodies to Hepatitis B Surface antibody not detected. REACTIVE: IgM antibodies to Hepatitis B Surface antibody detected. Hep B core IgM NONREACT NONREACTIVE 5 8:21 PM IRONER MACHINE [facility] HISTORICAL RESULTS Comment: Siemens CentaurXP using KIRILL (chemiluminescent immunoassay) technology. NONREACTIVE: IgM antibodies to Hepatitis B Core antigen not detected. EQUIVOCAL: IgM antibodies to Hepatitis B Core antigen may or may not be present. Obtain a new specimen and retest. REACTIVE: IgM antibodies to Hepatitis B Core antigen detected. Hep A IgM NONREACT NONREACTIVE 04/16/2015 8:22 PM IRONER MACHINE [facility] 25[facility] HISTORICAL RESULTS Comment: Siemens CentaurXP using KIRILL (chemiluminescent immunoassay) technology. NONREACTIVE: IgM antibodies to Hepatitis A not detected. This does not exclude possibility of exposure to Hepatitis A or early acute infection. EQUIVOCAL:IgM antibodies to Hepatitis A may or may not be present. Suggest recollection and retest. REACTIVE: Antibodies to Hepatitis A detected. Hep C Ab NONREACT NONREACTIVE 04/16/2015 8:20 PM IRONER MACHINE [facility] 25[facility] HISTORICAL RESULTS Comment: Siemens CentaurXP using KIRILL [...] to Hepatitis C detected. 04/16/2015 6:52 PM IRONER MACHINE 04/16/2015 7:03 PM IRONER MACHINE Narrative [facility] HISTORICAL RESULTS - 04/16/2015 8:20 PM IRONER MACHINE ALEXSANDER BC Draw Jorge Alberto [facility] MICROBIOLOGY - NERAL ORDERABLES Final Result [facility] HISTORICAL RESULTS from Last 3 Months or Most Recently Relevant to Health Maintenance Insurance MEDICARE [employer] SENIOR SUPPLEMENT Advance Directives For more information, please contact: [phone] * Full Code (Latest Code Status on [...] No non-invasive ventilationNo cardioversionNo intubation Care Teams Gambling Broker Relationship Specialty Start Date End Date Sisi Garcia MD PCP - General Family Medicine 10/05/18 Todd Angeles MD Consulting Physician Interventional Cardiology 03/26/21
--- OUTSIDE RECORDS SUMMARY | 2025-05-16 16:00 | XMS_ITS | Encounter Summary ---
Author Organization [facility] Facility Care Team Providers Care Seismic Survey Assistant Name Role Phone Sisi Garcia MD Primary Care Provider [phone] Todd Angeles MD Unavailable [phone] Encounter Details Date Type Department Care Team (Latest Contact Info) Description 05/07/2015 Orders Only [facility] CLINCONV ProviderRickie MD [address] [place] [address] Social History Tobacco Use Types Packs/Day Years Used Date Smoking Tobacco: Never Assessed Comments Unknown Sex and Gender Information Value Date Recorded Sex Assigned at Not on file Legal Sex Female 1:09 AM STONE SANDBLASTER Gender Identity Not on file Sexual Orientation [...] on filedocumented in this encounter Care Teams Seismic Survey Assistant Relationship Specialty Start Date End Date Sisi Garcia MD PCP - General Family Medicine 10/05/18 Todd Angeles MD Consulting Physician Interventional Cardiology 03/26/21 documented as of this encounter
--- OUTSIDE RECORDS SUMMARY | 2025-05-16 16:00 | XMS_ITS | Patient Health Record ---
Author Organization 1 OF Rachel riddle DPM [facility] Address [address] [facility] [address] [place] [address] Care Team Providers Care Electromechanisms Design Drafter Name Role Phone Sisi Garcia M.D. Primary Care Provider Frances Zayas Unavailable [phone] Allergies Allergen (clinical drug ingredient) Drug/Non Drug [...] Active Atorvastatin Calcium Active Meloxicam 7.5 MG Tablet 1 tablet Orally once a day; Duration: 30 days 04/26/2023 Active Social History Tobacco Use: Social History Observation Description Date Details (start date - stop date) Never Smoker NA - NA Social History Tobacco Use: Social Info Question Answer Notes Tobacco Control (Standard) Tobacco use: Nonsmoker Additional Details Category Social Info Options Details Miscellaneous: Exercise: Sedentary Occupation: Retired Living with: spouse Drugs/Alcohol: Do you smoke marijuana? De nies Alcohol use: Denies current a lcohol use Recreational drugs Patient denie s recreational drug use Plan Of Treatment No Information Insurance Providers Payer Name Payer Address Payer Phone Subscriber Number Group Number Insured Name Patient Relationship to Insured Coverage Start Date Coverage End Date Medicare [address] [place], [place] [id number] Phylicia Kamara Self - patient is the insured [facility] [address] [address] [place] [address] [id number] Phylicia Kamara Self - patient is the insured Medical (General) History Medical History History ICD Code depression, High cholesterol, hypertensi on
--- OUTSIDE RECORDS SUMMARY | 2025-05-16 16:00 | XMS_ITS | Encounter Summary ---
Author Organization [facility] Facility Care Team Providers Care Staff Writer Name Role Phone Sisi Garcia MD Primary Care Provider [phone] Todd Angeles MD Unavailable Encounter Details Date Type Department Care Team (Latest Contact Info) Description 12/07/2016 Orders Only [facility] CLINCONV ProviderRickie MD [address] [place] [address] Social History Tobacco Use Types Packs/Day Years Used Date Smoking Tobacco: Never Assessed Comments Unknown Sex and Gender Information Value Date Recorded Sex Assigned at Not on file Legal Sex Female 1:09 AM PROPERTY INSURANCE CLAIMS EXAMINER Gender Identity Not on file Sexual Orientation [...] on filedocumented in this encounter Care Teams Staff Writer Relationship Specialty Start Date End Date Sisi Garcia MD PCP - General Family Medicine 10/05/18 Todd Angeles MD Consulting Physician Interventional Cardiology 03/26/21 documented as of this encounter
--- OUTSIDE RECORDS SUMMARY | 2025-05-16 16:00 | XMS_ITS | Encounter Summary ---
Author Organization [facility] Facility Care Team Providers Care Sound Effects Person Name Role Phone Sisi Garcia MD Primary Care Provider [phone] Todd Angeles MD Unavailable Encounter Details Date Type Department Care Team (Latest Contact Info) Description 05/28/2017 Orders Only [facility] CLINCONV ProviderRickie MD [address] [place] [address] Social History Tobacco Use Types Packs/Day Years Used Date Smoking Tobacco: Never Assessed Comments Unknown Sex and Gender Information Value Date Recorded Sex Assigned at Not on file Legal Sex Female 1:09 AM FRAMING CONSULTANT Gender Identity Not on file Sexual Orientation Not on file documented as of this encounter Plan of Treatment Not on file documented as of this encounter Procedures Procedure Name Priority Date/Time Associated Diagnosis Comments SCAN - LABS 05/28/2017 12:00 AM FRAMING CONSULTANT documented in this encounter Results * SCAN - LABS (05/28/2017 12:00 AM FRAMING CONSULTANT) Narrative 05/28/2017 12:00 AM FRAMING CONSULTANT Ordered by an unspecified provider. Historical Provider Final Res ult documented in this encounter Visit Diagnoses Not on filedocumented in this encounter Care Teams Sound Effects Person Relationship Specialty Start Date End Date Sisi Garcia MD PCP - General Family Medicine 10/05/18 Todd Angeles MD Consulting Physician Interventional Cardiology 03/26/21 documented as of this encounter
--- OUTSIDE RECORDS SUMMARY | 2025-05-16 16:00 | XMS_ITS | Encounter Summary ---
Author Organization [facility] Facility Care Team Providers Care Slip Presser Name Role Phone Sisi Garcia MD Primary Care Provider [phone] Todd Angeles MD Unavailable Encounter Details Date Type Department Care Team (Latest Contact Info) Description 06/05/2015 Orders Only [facility] CLINCONV Provider, MD Rickie [address] [place] [address] Social History Tobacco Use Types Packs/Day Years Used Date Smoking Tobacco: Never Assessed Comments Unknown Sex and Gender Information Value Date Recorded Sex Assigned at Not on file Legal Sex Female 1:09 AM MACHINE ATTENDANT Gender Identity Not on file Sexual Orientation [...] on filedocumented in this encounter Care Teams Slip Presser Relationship Specialty Start Date End Date Sisi Garcia MD PCP - General Family Medicine 10/05/18 Todd Angeles MD Consulting Physician Interventional Cardiology 03/26/21 documented as of this encounter
--- OUTSIDE RECORDS SUMMARY | 2025-05-16 16:00 | XMS_ITS | Encounter Summary ---
Author Organization [facility] Facility Care Team Providers Care Pharmaceutical Plant Operator Name Role Phone Sisi Garcia MD Primary Care Provider [phone] Todd Angeles MD Unavailable Encounter Details Date Type Department Care Team (Latest Contact Info) Description 05/04/2017 Orders Only [facility] CLINCONV Provider, MD Rickie [address] [place] [address] Social History Tobacco Use Types Packs/Day Years Used Date Smoking Tobacco: Never Assessed Comments Unknown Sex and Gender Information Value Date Recorded Sex Assigned at Not on file Legal Sex Female 1:09 AM CASH REGISTER BALANCER Gender Identity Not on file Sexual Orientation Not on file documented as of this encounter Plan of Treatment Not on file documented as of this encounter Procedures Procedure Name Priority Date/Time Associated Diagnosis Comments SCAN - LABS 05/04/2017 12:00 AM CASH REGISTER BALANCER SCAN - LABS 05/04/2017 12:00 AM CASH REGISTER BALANCER SCAN - LABS 05/04/2017 12:00 AM CASH REGISTER BALANCER documented in this encounter Results * SCAN - LABS (05/04/2017 12:00 AM CASH REGISTER BALANCER) Narrative 05/04/2017 12:00 AM CASH REGISTER BALANCER Ordered by an unspecified provider. us Historical Provider MD Final Res ult * SCAN - LABS (05/04/2017 12:00 AM CASH REGISTER BALANCER) Narrative 05/04/2017 12:00 AM CASH REGISTER BALANCER Ordered by an unspecified provider. us Historical Provider MD Final Res ult * SCAN - LABS (05/04/2017 12:00 AM CASH REGISTER BALANCER) Narrative 05/04/2017 12:00 AM CASH REGISTER BALANCER Ordered by an unspecified provider. Historical Provider Final Res ult documented in this encounter Visit Diagnoses Not on filedocumented in this encounter Care Teams Pharmaceutical Plant Operator Relationship Specialty Start Date End Date Sisi Garcia MD PCP - General Family Medicine 10/05/18 Todd Angeles MD Consulting Physician Interventional Cardiology 03/26/21 documented as of this encounter
--- OUTSIDE RECORDS SUMMARY | 2025-05-16 16:00 | XMS_ITS | Encounter Summary ---
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
== END 2025-05-16 13:20 | disposition home or self-care (01) ==
PROVIDERS: PCP Student in an Organized Health Care Education/Training Program; Visit Provider Physician Assistant Surgical
DX: M25.532 Pain in left wrist (principal)
CPT/HCPCS: 73110